=== PATIENT | female | born 1945 | race African-American/Black ===

== ENCOUNTER → 2016-07-15 | Outpatient (CLI) | payer MEDICARE | LOC: RAD 19:30 | PROVIDERS: ATTEND Physician Assistant | DX: M54.5 Low back pain (principal) | CPT/HCPCS: 72148 ==

== ENCOUNTER 2016-10-13 11:50 | Emergency (ER) | payer MEDICARE, OTHER ==
[2016-10-13] MEDS ORDERED: PREDNISONE 20 MG TABLET PO ONE (12:10)
[2016-10-13] MEDS ORDERED: IPRATROPIUM/ALBUTEROL 0.5-2.5 MG/3 ML AMPUL NEB ONE ×2 (12:10→14:06)
--- NOTE | 2016-10-13 12:12 | ER Document Report ---
ED Medical Screen (RME) - General Chief Complaint: Asthma Exacerbation Stated Complaint: DIFFICULTY BREATHING Time Seen by Provider: 10/13/16 12:05 Mode of Arrival: Ambulatory Information source: Patient Notes: This is a 71-year-old female with multiple medical problems to include CHF and coronary artery disease and [place] last year who presents with increasing shortness of breath for the past few days. States that her nebulizer "broke" 3 days ago that she has been using her inhaler. She did have an episode of chest tightness on Thursday. No current chest pain. She denies any fevers or chills. She has been coughing up some white sputum. She does have prior history of hospital admission secondary to asthma but no prior history of intubation. I have greeted and performed a rapid initial assessment of this patient. A comprehensive ED assessment and evaluation of the patient, analysis of test results and completion of the medical decision making process will be conducted by additional ED providers. TRAVEL OUTSIDE OF THE [place] IN LAST 30 DAYS: No - Related Data Allergies/Adverse Reactions: Penicillins Allergy (Mild, Verified 05/14/16 20:05) Hives rofecoxib [From Vioxx] Allergy (Mild, Verified 05/14/16 20:05) Hives Sulfa (Sulfonamide Antibiotics) Allergy (Mild, Verified 05/14/16 20:05) Hives IV Dye Allergy (Uncoded 05/14/16 20:05) Past Medical History - Social History Chew tobacco use (# tins/day): No Frequency of alcohol use: None Drug Abuse: None - Past Medical History Cardiac Medical History: Reports: Hx Congestive Heart Failure, Hx Coronary Artery Disease, Hx Heart Attack - 2016, Hx Hypercholesterolemia, Hx Hypertension Pulmonary Medical History: Reports: Hx Asthma, Hx Bronchitis, Hx COPD, Hx Pneumonia - > than 5 yrs ago Neurological Medical History: Reports: Hx Cerebrovascular Accident - Multiple ( last one at least 10 yrs ago). Denies: Hx Seizures Renal/ Medical History: Reports: Hx Kidney Stones. Denies: Hx Peritoneal Dialysis GI Medical History: Reports: Hx Gastritis, Hx Gastroesophageal Reflux Disease, Hx Ulcer - gastric non bleeding Musculoskeltal Medical History: Reports Hx Arthritis, Reports Hx Musculoskeletal Deformity Psychiatric Medical History: Reports: Hx Anxiety, Hx Depression Past Surgical History: Reports: Hx Adenoidectomy, Hx Cardiac Catheterization - no stents, Hx Gynecologic Surgery - uterine fibroid removal, Hx Tonsillectomy, Hx Tubal Ligation - Immunizations Hx Diphtheria, Pertussis, Tetanus Vaccination: No Physical Exam - Vital signs Vitals: Temp Pulse Resp BP Pulse Ox 97.7 F 63 24 H 133/66 H 98 10/13/16 11:51 10/13/16 11:51 10/13/16 11:51 10/13/16 11:51 10/13/16 11:51 - General General appearance: Appears well, Alert In distress: None - Respiratory Respiratory status: No respiratory distress Chest status: Nontender Breath sounds: No: Rhonchi, Wheezing Notes: decreased bibasilar breath sounds - Cardiovascular Rhythm: Regular Heart sounds: Normal auscultation, S1 appreciated, S2 appreciated Course - Vital Signs Vital signs: Temp Pulse Resp BP Pulse Ox 97.7 F 63 24 H 133/66 H 98 10/13/16 11:51 10/13/16 11:51 10/13/16 11:51 10/13/16 11:51 10/13/16 11:51
--- NOTE | 2016-10-13 13:29 | RADIOLOGY REPORT (SQ) ---
EXAM DESCRIPTION: CHEST SINGLE VIEW COMPLETED DATE/TIME: 10/13/2016 1:20 pm REASON FOR STUDY: asthma, SOB, chest tightness COMPARISON: 04/20/2016 EXAM PARAMETERS: NUMBER OF VIEWS: One view. TECHNIQUE: Single frontal radiographic view of the chest acquired. RADIATION DOSE: NA LIMITATIONS: None. FINDINGS: LUNGS AND PLEURA: No opacities, masses or pneumothorax. No pleural effusion. MEDIASTINUM AND HILAR STRUCTURES: Stable in size and contour. HEART AND VASCULAR STRUCTURES: Heart stable in size. Normal vasculature. BONES: No acute findings. HARDWARE: None in the chest. OTHER: No other significant finding. IMPRESSION: NO ACUTE RADIOGRAPHIC FINDING IN THE CHEST. TECHNICAL DOCUMENTATION: JOB ID: [id number]
[2016-10-13 13:44] LABS: ABSOLUTE EOSINOPHILS # (AUTO) 0.1 10^3/uL (0.0-0.6); ABSOLUTE LYMPHOCYTES (AUTO) 2.5 10^3/uL (0.5-4.7); ABSOLUTE MONOCYTES (AUTO) 0.5 10^3/uL (0.1-1.4); ABSOLUTE NEUT (AUTO) 4.9 10^3/uL (1.7-8.2); BASOPHILS % (AUTO) 0.6 % (0-2); EOSINOPHILS % (AUTO) 1.5 % (0-6); HEMOGLOBIN 13.3 g/dL (12.0-15.5); HGB HCT DIFFERENCE -0.1; MEAN CORPUSCULAR HEMOGLOBIN 32.4 pg (27.0-33.4); MEAN CORPUSCULAR HGB CONC 33.2 g/dL (32.0-36.0); MEAN CORPUSCULAR VOLUME 98 fl (80-97); MONOCYTES % (AUTO) 6.1 % (3-13); RED BLOOD COUNT 4.09 10^6/uL (3.72-5.28); RED CELL DISTRIBUTION WIDTH 13.6 % (11.5-14.0); SEGMENTED NEUTROPHILS % (AUTO) 60.8 % (42-78)
[2016-10-13 13:56] LABS: ALANINE AMINOTRANSFERASE 17 U/L (9-52); ALBUMIN 3.4 g/dL (3.5-5.0); ALKALINE PHOSPHATASE 204 U/L (38-126); ANION GAP 11 (5-19); ASPARTATE AMINO TRANSFERASE 17 U/L (14-36); BILIRUBIN,DIRECT 0.2 mg/dL (0.0-0.4); BILIRUBIN,TOTAL 0.6 mg/dL (0.2-1.3); BLOOD UREA NITROGEN 49 mg/dL (7-20); CALCIUM 9.5 mg/dL (8.4-10.2); CARBON DIOXIDE 21 mmol/L (22-30); CHLORIDE 109 mmol/L (98-107); CREATINE KINASE 53 U/L (30-135); CREATININE RESULT 1.75 mg/dL (0.52-1.25); GLUCOSE 132 mg/dL (75-110); POTASSIUM 3.8 mmol/L (3.6-5.0); TOTAL PROTEIN 5.8 g/dL (6.3-8.2)
[2016-10-13 14:08] LABS: CREATINE KINASE MB 1.22 ng/mL (<4.55); TROPONIN I < 0.012 ng/mL
--- NOTE | 2016-10-13 14:32 | ER Document Report ---
ED General - General Chief Complaint: Asthma Exacerbation Stated Complaint: DIFFICULTY BREATHING Time Seen by Provider: 10/13/16 12:05 Mode of Arrival: Ambulatory Information source: Patient Notes: 71 yr old female hx of asthma presents iwth complaitns of wheezing sob. pt denies any fevers or chills, nausea or vomiting. pt notes it worsens with ambulation. pt noted intermittent yellow sputum pt admits to left hip pain of 1 year duration pt is on 10 mg of prednisone daily. TRAVEL OUTSIDE OF THE [place] IN LAST 30 DAYS: No - HPI Onset: Last week Onset/Duration: Persistent Quality of pain: Achy Severity: Mild Pain Level: 1 Associated symptoms: Productive cough, Shortness of breath Exacerbated by: Movement, Walking Relieved by: Denies Similar symptoms previously: Yes Recently seen / treated by doctor: Yes - Related Data Allergies/Adverse Reactions: Penicillins Allergy (Mild, Verified 05/14/16 20:05) Hives rofecoxib [From Vioxx] Allergy (Mild, Verified 05/14/16 20:05) Hives Sulfa (Sulfonamide Antibiotics) Allergy (Mild, Verified 05/14/16 20:05) Hives IV Dye Allergy (Uncoded 05/14/16 20:05) Past Medical History - General Information source: Patient - Social History Smoking Status: Never Smoker Cigarette use (# per day): No Chew tobacco use (# tins/day): No Smoking Education Provided: No Frequency of alcohol use: None Drug Abuse: None Family History: CAD, DM, Hypertension, Malignancy - Past Medical History Cardiac Medical History: Reports: Hx Congestive Heart Failure, Hx Coronary Artery Disease, Hx Heart Attack - 2016, Hx Hypercholesterolemia, Hx Hypertension Pulmonary Medical History: Reports: Hx Asthma, Hx Bronchitis, Hx COPD, Hx Pneumonia - > than 5 yrs ago Neurological Medical History: Reports: Hx Cerebrovascular Accident - Multiple ( last one at least 10 yrs ago). Denies: Hx Seizures Renal/ Medical History: Reports: Hx Kidney Stones. Denies: Hx Peritoneal Dialysis GI Medical History: Reports: Hx Gastritis, Hx Gastroesophageal Reflux Disease, Hx Ulcer - gastric non bleeding Musculoskeltal Medical History: Reports Hx Arthritis, Reports Hx Musculoskeletal Deformity Psychiatric Medical History: Reports: Hx Anxiety, Hx Depression Past Surgical History: Reports: Hx Adenoidectomy, Hx Cardiac Catheterization - no stents, Hx Gynecologic Surgery - uterine fibroid removal, Hx Tonsillectomy, Hx Tubal Ligation - Immunizations Hx Diphtheria, Pertussis, Tetanus Vaccination: No Hx Pneumococcal Vaccination: 02/16/12 Review of Systems - Review of Systems Notes: PHYSICAL EXAMINATION: GENERAL: Well-appearing, well-nourished and in no acute distress. HEAD: Atraumatic, normocephalic. EYES: Pupils equal round and reactive to light, extraocular movements intact, conjunctiva are normal. ENT: Nares patent, oropharynx clear without exudates. Moist mucous membranes. NECK: Normal range of motion, supple without lymphadenopathy LUNGS: Breath sounds clear to auscultation bilaterally and equal. No wheezes rales or rhonchi. HEART: Regular rate and rhythm without murmurs ABDOMEN: Soft, nontender, nondistended abdomen. No guarding, no rebound. No masses appreciated. Female : deferred Musculoskeletal: Normal range of motion, no pitting or edema. No cyanosis. NEUROLOGICAL: Cranial nerves grossly intact. Normal speech, normal gait. Normal sensory, motor exams PSYCH: Normal mood, normal affect. SKIN: Warm, Dry, normal turgor, no rashes or lesions noted. Physical Exam - Vital signs Vitals: Temp Pulse Resp BP Pulse Ox 97.7 F 63 24 H 133/66 H 98 10/13/16 11:51 10/13/16 11:51 10/13/16 11:51 10/13/16 11:51 10/13/16 11:51 Course - Re-evaluation Re-evalutation: 10/13/16 14:31 Patient is having no respiratory difficulty at this time, notes she feels much better after 2 breathing treatments. I will increase her baseline steroids from 10-60 for next 5 days Otherwise looks well will be discharged home with very close follow-up After performing a Medical Screening Examination, I estimate there is LOW risk for ACUTE CORONARY SYNDROME, RESPIRATORY FAILURE, SEPSIS OR MENINGITIS, thus I consider the discharge disposition reasonable. I have reevaluated this patient multiple times and no significant life threatening changes are noted. The patient and I have discussed the diagnosis and risks, and we agree with discharging home with close follow-up. We also discussed returning to the Emergency Department immediately if new or worsening symptoms occur. We have discussed the symptoms which are most concerning (e.g., changing or worsening pain, trouble swallowing or breathing, neck stiffness, fever) that necessitate immediate return. 10/13/16 15:11 - Vital Signs Vital signs: Temp Pulse Resp BP Pulse Ox 97.6 F 70 20 127/91 H 97 10/13/16 14:43 10/13/16 14:43 10/13/16 14:43 10/13/16 14:43 10/13/16 14:43 - Laboratory Result Diagrams: 10/13/16 13:30 10/13/16 13:30 Laboratory results interpreted by me: 10/13/16 10/13/16 13:30 13:30 MCV 98 H Chloride 109 H Carbon Dioxide 21 L BUN 49 H Creatinine 1.75 H Est GFR ( Amer) 35 L Est GFR (Non-Af Amer) 29 L Glucose 132 H Alkaline Phosphatase 204 H Total Protein 5.8 L Albumin 3.4 L - Diagnostic Test Radiology reviewed: Image reviewed, Reports reviewed Discharge - Discharge Clinical Impression: Asthma exacerbation, Pain of left hip CKD (chronic kidney disease) Qualifiers: Chronic kidney disease stage: stage 2 (mild) Qualified Code(s): N18.2 - Chronic kidney disease, stage 2 (mild) Condition: Stable Disposition: HOME, SELF-CARE Instructions: Asthma (REPLACED BY [facility]) Additional Instructions: Follow up with your physician tomorrow for further care or return to the ED IMMEDIATELY if symptoms worsen or new concerns occur. If you cannot afford to follow up with your primary care physician a list of low cost clinics have been provided at the end of your discharge papers as well. Prescriptions: Prednisone [Deltasone 20 mg Tablet] 3 tab PO DAILY 5 Days
[2016-10-13 14:44] VITALS: BP 127/91
--- NOTE | 2016-10-13 21:13 | EKG REPORT ---
SEVERITY:- ABNORMAL ECG - SINUS RHYTHM PROBABLE LEFT ATRIAL ABNORMALITY LEFT VENTRICULAR HYPERTROPHY ANTERIOR Q WAVES, POSSIBLY DUE TO LVH : Confirmed by: Mariann Reyes 13-Oct-2016 21:11:29
== END 2016-10-13 14:44 | disposition home or self-care (01) ==
LOC: ER 11:50
DX: J45.901 Unspecified asthma with (acute) exacerbation (principal); M25.552 Pain in left hip; G89.29 Other chronic pain; N18.2 Chronic kidney disease, stage 2 (mild); R06.02 Shortness of breath; Z79.899 Other long term (current) drug therapy
CPT/HCPCS: 93005; 94640 ×2; 99285; 36415; 87040; 82553; 82550; 85025; 80053; 84484; 83880; 71010; 93010; A9270 ×2; J7512; J7620

== ENCOUNTER 2016-11-26 12:59 | Inpatient (IN) | payer MEDICARE, OTHER ==
[2016-11-26] MEDS ORDERED: MORPHINE SULFATE 10 MG/ML INJ IV ONE ×2 (14:09→15:27)
[2016-11-26] MEDS ORDERED: ONDANSETRON HCL INJ/PF 4 MG/2 ML SDV IV ONE (14:09)
--- NOTE | 2016-11-26 14:13 | ER Document Report ---
ED Medical Screen (RME) - General Chief Complaint: Abdominal Pain Stated Complaint: ABDOMINAL PAIN Time Seen by Provider: 11/26/16 14:04 Mode of Arrival: Ambulatory Information source: Patient, [facility] Records TRAVEL OUTSIDE OF THE [place] IN LAST 30 DAYS: No - HPI Onset: Other - 2 weeks Onset/Duration: Gradual, Constant Quality of pain: Dull Associated Symptoms: Nausea. denies: Vomiting Exacerbated by: Denies Relieved by: Denies Notes: 11/26/16 14:10 Patient is a 71-year-old female who presents with a two-week history of ventral wall hernia. Patient states she did not have it prior to 2 weeks ago. Patient complains of increasing abdominal pain. Nausea no vomiting. She is able to tolerate p.o. intake. No fevers or chills. Patient has not been seen by primary care or general surgery for this complaint. - Related Data Allergies/Adverse Reactions: Penicillins Allergy (Mild, Verified 11/26/16 13:12) Hives rofecoxib [From Vioxx] Allergy (Mild, Verified 11/26/16 13:12) Hives Sulfa (Sulfonamide Antibiotics) Allergy (Mild, Verified 11/26/16 13:12) Hives IV Dye Allergy (Uncoded 11/26/16 13:12) Past Medical History - General Information source: Patient, [facility] Records - Social History Chew tobacco use (# tins/day): No Frequency of alcohol use: None Drug Abuse: None - Past Medical History Cardiac Medical History: Reports: Hx Congestive Heart Failure, Hx Coronary Artery Disease, Hx Heart Attack - 2016, Hx Hypercholesterolemia, Hx Hypertension Pulmonary Medical History: Reports: Hx Asthma, Hx Bronchitis, Hx COPD, Hx Pneumonia - > than 5 yrs ago Neurological Medical History: Reports: Hx Cerebrovascular Accident - Multiple ( last one at least 10 yrs ago). Denies: Hx Seizures Renal/ Medical History: Reports: Hx Kidney Stones. Denies: Hx Peritoneal Dialysis GI Medical History: Reports: Hx Gastritis, Hx Gastroesophageal Reflux Disease, Hx Ulcer - gastric non bleeding Musculoskeltal Medical History: Reports Hx Arthritis, Reports Hx Musculoskeletal Deformity Psychiatric Medical History: Reports: Hx Anxiety, Hx Depression Past Surgical History: Reports: Hx Adenoidectomy, Hx Cardiac Catheterization - no stents, Hx Gynecologic Surgery - uterine fibroid removal, Hx Tonsillectomy, Hx Tubal Ligation - Immunizations Hx Diphtheria, Pertussis, Tetanus Vaccination: No Review of Systems - Review of Systems Gastrointestinal: Abdominal pain, Nausea -: Yes All other systems reviewed and negative Physical Exam - Vital signs Vitals: Temp Pulse Resp BP Pulse Ox 99.6 F 85 20 103/60 98 11/26/16 13:14 11/26/16 13:14 11/26/16 13:14 11/26/16 13:14 11/26/16 13:14 Interpretation: Normal - General General appearance: Appears well, Alert - HEENT Head: Normocephalic, Atraumatic Eyes: Normal Pupils: PERRL - Respiratory Respiratory status: No respiratory distress Chest status: Nontender Breath sounds: Normal Chest palpation: Normal - Cardiovascular Rhythm: Regular Heart sounds: Normal auscultation Murmur: No - Abdominal Inspection: Other - Small midline ventral wall hernia above the umbilicus. Significant skin scarring secondary to flores many years ago. Bowel sounds: Normal Tenderness: Tender - Over ventral wall hernia site - Extremities General upper extremity: Normal inspection, Nontender, Normal color, Normal ROM , Normal temperature General lower extremity: Normal inspection, Nontender, Normal color, Normal ROM , Normal temperature, Normal weight bearing. No: Lorenzo's sign - Neurological Neuro grossly intact: Yes Cognition: Normal Orientation: AAOx4 [place] Coma Scale Eye Opening: Spontaneous Alejandro Coma Scale Verbal: Oriented Alejandro Coma Scale Motor: Obeys Commands Alejandro Coma Scale Total: 15 Speech: Normal Motor strength normal: LUE, RUE, LLE, RLE Sensory: Normal Course - Re-evaluation Re-evalutation: 11/26/16 14:13 Patient will require labs and CT. Patient will be taken to the back treatment area for further management and disposition. - Vital Signs Vital signs: Temp Pulse Resp BP Pulse Ox 99.6 F 85 20 103/60 98 11/26/16 13:14 11/26/16 13:14 11/26/16 13:14 11/26/16 13:14 11/26/16 13:14
[2016-11-26 14:58] LABS: HEMATOCRIT 38.8 % (36.0-47.0); HEMOGLOBIN 12.8 g/dL (12.0-15.5); HGB HCT DIFFERENCE -0.4; MEAN CORPUSCULAR HEMOGLOBIN 32.6 pg (27.0-33.4); MEAN CORPUSCULAR VOLUME 99 fl (80-97); RED BLOOD COUNT 3.93 10^6/uL (3.72-5.28); RED CELL DISTRIBUTION WIDTH 14.1 % (11.5-14.0); WHITE BLOOD COUNT 8.6 10^3/uL (4.0-10.5)
[2016-11-26 15:24] LABS: BASOPHILS % (MANUAL) 0 % (0-2); EOSINOPHILS % (MANUAL) 0 % (0-6); LYMPHOCYTES % (MANUAL) 14 % (13-45); PLATELET CLUMPS PRESENT; TOTAL CELLS COUNTED 100; TOXIC GRANULATION 1+; TOXIC VACUOLATION PRESENT
[2016-11-26 15:26] LABS: PARTIAL THROMBOPLASTIN TIME 21.9 SEC (23.5-35.8); PROTHROMBIN TIME 12.4 SEC (11.4-15.4)
[2016-11-26] MEDS ORDERED: NORMAL SALINE 1000 ML 1,000 ML IV ONE (15:27)
--- NOTE | 2016-11-26 15:28 | ER Document Report ---
ED GI/ - General Mode of Arrival: Ambulatory Information source: Patient TRAVEL OUTSIDE OF THE [place] IN LAST 30 DAYS: No <MARYLOU MORAN - Last Filed: 11/26/16 23:25> <EMIR PARKINSON - Last Filed: 11/27/16 00:46> - General Chief Complaint: Abdominal Pain Stated Complaint: ABDOMINAL PAIN Time Seen by Provider: 11/26/16 14:04 Notes: Patient is a 71-year-old female who presents to the emergency department today with complaints of abdominal pain that radiates to her back. Patient states she has had a hernia in the past and this feels similar to previous hernia. Patient states she had her hernia repaired with mesh. Patient complains of nausea but denies any vomiting. Patient has abdominal distension. (MARYLOU MORAN ) - Related Data Allergies/Adverse Reactions: Penicillins Allergy (Mild, Verified 11/26/16 21:12) Hives rofecoxib [From Vioxx] Allergy (Mild, Verified 11/26/16 13:12) Hives Sulfa (Sulfonamide Antibiotics) Allergy (Mild, Verified 11/26/16 13:12) Hives Home Medications: Current Home Medications Albuterol Sulfate [Proair HFA] 2 puff IH Q4HP PRN 11/26/16 [History] Amlodipine Besylate [Norvasc 5 mg Tablet] 5 mg PO DAILY 11/26/16 [History] Aspirin [Aspirin EC] 81 mg PO DAILY 11/26/16 [History] Atorvastatin Calcium [Lipitor 40 mg Tablet] 40 mg PO QHS 11/26/16 [History] Baclofen [Baclofen 10 mg Tablet] 10 mg PO DAILY 11/26/16 [History] Budesonide/Formoterol Fumarate [Symbicort Hfa 160-4.5 Mcg Inhaler 6 gm] 2 puff IH Q12 11/26/16 [History] Escitalopram Oxalate [Lexapro 10 mg Tablet] 10 mg PO DAILY 11/26/16 [History] Esomeprazole Magnesium [Nexium] 40 mg PO QAM 11/26/16 [History] Gabapentin [Neurontin 300 mg Capsule] 300 mg PO BID 11/26/16 [History] Metoprolol Tartrate [Lopressor 50 mg Tablet] 50 mg PO Q12 11/26/16 [History] Montelukast Sodium [Singulair 10 mg Tablet] 10 mg PO DAILY 11/26/16 [History] Multivitamin [Tab-A-Gustavo] 1 each PO DAILY 11/26/16 [History] Olmesartan/Hydrochlorothiazide [Benicar Hct 40-12.5 Mg Tablet] 1 each PO DAILY 11/26/16 [History] Prednisone [Deltasone 10 mg Tablet] 10 mg PO BID 11/26/16 [History] Sertraline HCl [Zoloft] 100 mg PO DAILY 11/26/16 [History] Tramadol HCl [Ultram 50 mg Tablet] 50 mg PO BIDP PRN 11/26/16 [History] Triamterene/Hydrochlorothiazid [Triamterene-Hctz 37.5-25 mg Tb] 1 each PO DAILY 11/26/16 [History] Past Medical History - General Information source: Patient, [facility] Records - Social History Smoking Status: Never Smoker Cigarette use (# per day): No Chew tobacco use (# tins/day): No Frequency of alcohol use: None Drug Abuse: None Lives with: Family Family History: Reviewed & Not Pertinent, CAD, DM, Hypertension, Malignancy Patient has suicidal ideation: No Patient has homicidal ideation: No - Past Medical History Cardiac Medical History: Reports: Hx Congestive Heart Failure, Hx Coronary Artery Disease, Hx Heart Attack - 2016, Hx Hypercholesterolemia, Hx Hypertension Pulmonary Medical History: Reports: Hx Asthma, Hx Bronchitis, Hx COPD, Hx Pneumonia - > than 5 yrs ago Neurological Medical History: Reports: Hx Cerebrovascular Accident - Multiple ( last one at least 10 yrs ago) Renal/ Medical History: Reports: Hx Kidney Stones GI Medical History: Reports: Hx Gastritis, Hx Gastroesophageal Reflux Disease, Hx Ulcer - gastric non bleeding Musculoskeltal Medical History: Reports Hx Arthritis, Reports Hx Musculoskeletal Deformity Psychiatric Medical History: Reports: Hx Anxiety, Hx Depression Past Surgical History: Reports: Hx Adenoidectomy, Hx Cardiac Catheterization - no stents, Hx Gynecologic Surgery - uterine fibroid removal, Hx Tonsillectomy, Hx Tubal Ligation - Immunizations Hx Diphtheria, Pertussis, Tetanus Vaccination: No Hx Pneumococcal Vaccination: 02/16/12 <MARYLOU MORAN - Last Filed: 11/26/16 23:25> Review of Systems - Review of Systems Constitutional: No symptoms reported EENT: No symptoms reported Cardiovascular: No symptoms reported Respiratory: No symptoms reported Gastrointestinal: See HPI, Abdominal pain, Nausea. denies: Vomiting Genitourinary: No symptoms reported Female Genitourinary: No symptoms reported Musculoskeletal: See HPI, Back pain Skin: No symptoms reported Hematologic/Lymphatic: No symptoms reported Neurological/Psychological: No symptoms reported -: Yes All other systems reviewed and negative <MARYLOU MORAN - Last Filed: 11/26/16 23:25> Physical Exam <MARYLOU MORAN - Last Filed: 11/26/16 23:25> <EMIR PARKINSON - Last Filed: 11/27/16 00:46> - Vital signs Vitals: Temp Pulse Resp BP Pulse Ox 99.6 F 85 20 103/60 98 11/26/16 13:14 11/26/16 13:14 11/26/16 13:14 11/26/16 13:14 11/26/16 13:14 - Notes Notes: Physical Exam: General: Alert, appears uncomfortable. HEENT: Normocephalic. Atraumatic. PERRL. Extraocular movements intact. Oropharynx clear. Dry mucous membranes. Neck: Supple. Non-tender. Respiratory: No respiratory distress. Clear and equal breath sounds bilaterally. Cardiovascular: Regular rate and rhythm. Abdominal: Abdominal distension, diffuse abdominal tenderness with palpation, no palpable hernias. Healed flores on upper abdomen consistent with history. Back: Non-tender. No deformity or step off. Extremities: Moves all four extremities. Upper extremities: Normal inspection. Normal ROM. Lower extremities: Normal inspection. No edema. Normal ROM. Neurological: Normal cognition. AAOx4. Normal speech. Psychological: Normal affect. Normal Mood. Skin: see abdomen exam (MARYLOU MORAN) Course - Laboratory Result Diagrams: 11/26/16 14:35 11/26/16 15:34 <MARYLOU MORAN - Last Filed: 11/26/16 23:25> - Laboratory Result Diagrams: 11/26/16 14:35 11/26/16 15:34 <EMIR PARKINSON - Last Filed: 11/27/16 00:46> - Re-evaluation Re-evalutation: 11/26/16 18:30 Patient is a 71-year-old female who comes in complaining of abdominal pain. No acute findings on CT. Blood work is showing acute on chronic renal failure and an elevated lactic acid. Patient has what appears to be urinary tract infection and also pneumonia. Patient was complaining of Hung's. Temperature was checked and fever is 1016. Blood and urine culture sent. Patient will be admitted to the hospitalist service. Antibiotics initiated in the emergency department to cover urine and pneumonia. Patient agrees with this plan. Stable time of admission. (EMIR PARKINSON) - Vital Signs Vital signs: Temp Pulse Resp BP Pulse Ox 98.2 F 73 18 101/48 L 98 11/26/16 23:46 11/26/16 23:46 11/26/16 23:46 11/26/16 23:46 11/26/16 23:46 - Laboratory Laboratory results interpreted by me: 11/26/16 11/26/16 11/26/16 14:35 14:35 14:35 MCV 99 H RDW 14.1 H Plt Count 149 L Metamyelocytes % 1 H APTT 21.9 L Chloride BUN Creatinine Est GFR ( Amer) Est GFR (Non-Af Amer) Glucose Lactic Acid 3.2 H Magnesium AST ALT Alkaline Phosphatase Total Protein Albumin Ur Leukocyte Esterase 11/26/16 11/26/16 11/26/16 15:34 15:34 17:30 MCV RDW Plt Count Metamyelocytes % APTT Chloride 108 H BUN 44 H Creatinine 2.60 H Est GFR ( Amer) 22 L Est GFR (Non-Af Amer) 18 L Glucose 163 H Lactic Acid Magnesium 1.5 L AST 160 H ALT 78 H Alkaline Phosphatase 204 H Total Protein 5.7 L Albumin 3.2 L Ur Leukocyte Esterase SMALL H Critical Care Note - Critical Care Note Total time excluding time spent on procedures (mins): 35 - Dilatation and management of fever, hypotension, initiation of antibiotics, coordination of admission, counseling patient and family. <EMIR PARKINSON - Last Filed: 11/27/16 00:46> Discharge <MARYLOU MORAN - Last Filed: 11/26/16 23:25> - Discharge Admitting Provider: Hospitalist - [place] [facility] Admitted: [facility] <EMIR PARKINSON - Last Filed: 11/27/16 00:46> - Discharge Clinical Impression: SIRS (systemic inflammatory response syndrome), Acute on chronic renal insufficiency Pneumonia Qualifiers: Pneumonia type: due to unspecified organism Laterality: left Lung location: lower lobe of lung Qualified Code(s): J18.1 - Lobar pneumonia, unspecified organism UTI (urinary tract infection) Qualifiers: Urinary tract infection type: site unspecified Hematuria presence: without hematuria Qualified Code(s): N39.0 - Urinary tract infection, site not specified Condition: Stable Disposition: ADMITTED INPATIENT Scribe Attestation: 11/27/16 00:45 I personally performed the services described in the documentation, reviewed and edited the documentation which was dictated to the scribe in my presence, and it accurately records my words and actions. (EMIR PARKINSON) Scribe Documentation - Scribe Written by Scribe:: Hermelindo Suarez, 11/26/2016 1703 acting as scribe for :: Inge <MARYLOU MORAN - Last Filed: 11/26/16 23:25>
[2016-11-26 16:06] LABS: ALANINE AMINOTRANSFERASE 78 U/L (9-52); ALBUMIN 3.2 g/dL (3.5-5.0); ALKALINE PHOSPHATASE 204 U/L (38-126); ANION GAP 10 (5-19); ASPARTATE AMINO TRANSFERASE 160 U/L (14-36); BILIRUBIN,DIRECT 0.4 mg/dL (0.0-0.4); BILIRUBIN,TOTAL 1.2 mg/dL (0.2-1.3); BLOOD UREA NITROGEN 44 mg/dL (7-20); CALCIUM 9.4 mg/dL (8.4-10.2); CARBON DIOXIDE 22 mmol/L (22-30); CHLORIDE 108 mmol/L (98-107); GLUCOSE 163 mg/dL (75-110); POTASSIUM 3.6 mmol/L (3.6-5.0); TOTAL PROTEIN 5.7 g/dL (6.3-8.2)
--- NOTE | 2016-11-26 16:15 | RADIOLOGY REPORT (SQ) ---
EXAM DESCRIPTION: CT ABD/PELVIS NO ORAL OR IV COMPLETED DATE/TIME: 11/26/2016 3:03 pm REASON FOR STUDY: abd wall hernia COMPARISON: CT angio chest 04/20/2016 CT abdomen pelvis without contrast 10/02/2013 TECHNIQUE: CT scan of the abdomen and pelvis performed without intravenous or oral contrast. Images reviewed with lung, soft tissue, and bone windows. Reconstructed coronal and sagittal MPR images revi ewed. All images stored on PACS. All CT scanners at this facility use dose modulation, iterative reconstruction, and/or weight based d osing when appropriate to reduce radiation dose to as low as reasonably achievable (ALARA). [facility]: Dose Right [facility]: CareDose [facility]: Dose Right [facility]: Teradose 4D [facility]: Pluralsight RADIATION DOSE: 7.8mGy. LIMITATIONS: None. FINDINGS: LOWER CHEST: No significant findings. No nodules or infiltrates. NON-CONTRASTED LIVER, SPLEEN, ADRENALS: Evaluation limited by lack of IV contrast. No identified sign ificant masses. PANCREAS: Multiple pancreatic cysts are present. No peripancreatic inflammation. GALLBLADDER: No identified stones by CT criteria. No inflammatory changes to suggest cholecystitis. RIGHT KIDNEY AND URETER: No suspicious masses. Multiple right renal cortical cysts. Assessment limi bindu by lack of IV contrast. No significant calcifications. No hydronephrosis or hydroureter. LEFT KIDNEY AND URETER: No suspicious masses. Multiple left renal cortical cysts. Assessment limite d by lack of IV contrast. No significant calcifications. No hydronephrosis or hydroureter. AORTA AND RETROPERITONEUM: No aneurysm. No retroperitoneal masses or adenopathy. BOWEL AND PERITONEAL CAVITY: No obvious masses or inflammatory changes. No free fluid. Scattered col onic diverticuli. APPENDIX: Normal. PELVIS, BLADDER, AND ABDOMINAL WALL:No abnormal masses. No free fluid. Normal size female pelvic org ans. Intact prior ventral hernia repair. In the left bladder trigone, along the mucosa near the left ureteral orifice into the bladder, a 6 mm calculus is present. This is similar compared to 10/02/2013. This could be a mucosal calcification, or stone within a ureterocele. There is no left hydronephrosis or hydroureter. BONES: No significant findings. OTHER: No other significant finding. IMPRESSION: No acute findings Multiple bilateral renal and pancreatic cysts, intact ventral hernia repair, colonic diverticulosis w ithout CT signs of acute diverticulitis 6 mm calcification along the left bladder trigone, bladder stone versus stone in a ureterocele versus bladder mucosal calcification. No left hydronephrosis/hydroureter. TECHNICAL DOCUMENTATION: JOB ID: [id number] Quality ID # [id number]: Final reports with documentation of one or more dose reduction techniques (e.g., Au tomated exposure control, adjustment of the mA and/or kV according to patient size, use of iterative reconstruction technique) 2010 [employer]- All Rights Reserved
[2016-11-26] MEDS ORDERED: ACETAMINOPHEN 325 MG TABLET PO ONE (18:24)
[2016-11-26 19:03] LABS: APPEARANCE,URINE SLIGHTLY-CLOUDY; BILIRUBIN,URINE NEGATIVE (NEGATIVE); GLUCOSE, URINE NEGATIVE (NEGATIVE); KETONES,URINE NEGATIVE (NEGATIVE); LEUKOCYTE ESTERASE,URINE SMALL (NEGATIVE); NITRITE,URINE NEGATIVE (NEGATIVE); PROTEIN,URINE NEGATIVE (NEGATIVE); UROBILINOGEN,URINE NEGATIVE mg/dL (<2.0)
--- NOTE | 2016-11-26 19:08 | RADIOLOGY REPORT (SQ) ---
EXAM DESCRIPTION: CHEST SINGLE VIEW COMPLETED DATE/TIME: 11/26/2016 6:59 pm REASON FOR STUDY: fever COMPARISON: 10/13/2016 EXAM PARAMETERS: NUMBER OF VIEWS: One view. TECHNIQUE: Single frontal radiographic view of the chest acquired. RADIATION DOSE: NA LIMITATIONS: None. FINDINGS: LUNGS AND PLEURA: Bibasilar opacities. No effusions. MEDIASTINUM AND HILAR STRUCTURES: No masses. Contour normal. HEART AND VASCULAR STRUCTURES: Perihilar vascular congestion with mild cardiac enlargement. BONES: No acute findings. HARDWARE: None in the chest. OTHER: No other significant finding. IMPRESSION: Vascular congestion. Suspect superimposed basilar pneumonia. TECHNICAL DOCUMENTATION: JOB ID: [id number]
[2016-11-26] MEDS ORDERED: LEVOFLOXACIN 750 MG/D5W RTU 150 ML IV ONE (19:48)
[2016-11-26] MEDS ORDERED: CEFEPIME 1 GM/D5W RTU 50 ML IV ONE (19:48)
[2016-11-26] MEDS ORDERED: GUAIFENESIN SYRP 200 MG/10 ML UDC PO PRN (21:00)
[2016-11-26] MEDS ORDERED: IPRATROPIUM/ALBUTEROL 0.5-2.5 MG/3 ML AMPUL NEB PRN (21:00)
[2016-11-26] MEDS ORDERED: CEFEPIME HCL 1 GM in DEXTROSE 5%-WATER 50 ML IV ONE (21:00)
[2016-11-26] MEDS ORDERED: PHARMACY COMMUNICATION ORDER MC NR (21:00)
[2016-11-26 21:05] LABS: ADD ON TESTING BLD IN LAB ACKNOWLEDGE
[2016-11-26 21:21] LABS: MAGNESIUM 1.5 mg/dL (1.6-2.3)
--- NOTE | 2016-11-26 21:22 | PDOC H&P ---
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 Patient has been discussed with emergency room physician who evaluated the patient. Cramping pain that radiated to her back. Patient states this was similar pain she had experienced with a hernia that had been repaired with mesh in the past. Nausea but no vomiting. No dysuria. Occasional diarrhea, which is a chronic problem for her, without recent change. No chest pain. As noted above, abdominal pain is now resolved. During her evaluation in the emergency room, patient began having prominent shaking chills, with a fever 101+ . X-rays reveal suspected bibasilar pneumonia. Chronic cough without recent change. No antibiotic or hospitalization within the last 3 months. No use of alcohol tobacco or illicit drugs. Hospitalized on our service basically overnight February 27-2014 with final diagnoses including chest pain and COPD exacerbation. Discharge summary has been reviewed. Was also admitted to our service February [id number] for chest pain. History and physical has been reviewed. Currently resting quietly, pain-free, stating that she feels a bit better. Laboratory results are listed in [employer] and are reviewed. X-ray summary results are listed below, with full report(s) reviewed. . Social history/personal habits: . Daughter lives with her. Retired. Personal habits as noted above. Allergies/adverse reactions are listed in [employer] and are reviewed. Home medications initially autopopulated into [employer] may not accurately reflect patient's true medications, dosages, and/or frequencies. marketing technology coordinator to reconcile medications. Unfortunately, patient not certain of all medications/dosages/frequencies. REVIEW OF SYSTEMS: See history and present illness. 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 ENT: No swallowing problems or complaints. Denies hearing loss. Pulmonary: No current complaints other than her mild chronic cough, without recent change. Cardiovascular: No current complaints, including chest pain. Gastrointestinal: See history and present illness. Skin: Occasional problems with eczema. Hematologic: Easy bruising. Neurologic: No current complaints, including numbness or tingling. Musculoskeletal: Joint pain from rheumatoid arthritis. Psychiatric: Mild anxiety and depression. Denies suicidal or homicidal ideation. Endocrine: No current complaints, including polyuria. Genitourinary: No current complaints, including dysuria. PHYSICAL EXAMINATION: Daughter Mp Singleton, her surrogate healthcare decision maker, is present at her side; patient approves. 4 feet 11 inches tall. 62.8 kg. BMI 28 kg/m. Blood pressure 109/57. Pulse 95 and regular. 95% saturation on 2 L oxygen per nasal cannula. Respirations are 23 and unlabored. Temperature 101.6 earlier; skin feels normothermic at present. Slightly overweight otherwise well-nourished well-developed though somewhat chronically ill-appearing -[place] female who appears perhaps a bit older than her stated age. Pleasant awake alert and cooperative. No obvious distress other than somewhat anxious. Skin is warm and dry. No grossly obvious evidence of rash in areas of skin examined. No subcutaneous nodules palpated. ENT: Hearing grossly normal to normal conversation. Tongue midline on protrusion pink and slightly tacky. Eyes: No scleral icterus. Right pupil 4 mm and reactive to light; left pupil slightly larger, somewhat oblong, with minimal if any reaction to light. Guerra conjunctivae. Neck is supple and nontender to gentle active range of motion and palpation. Midline trachea. No palpable thyroid nodule mass enlargement or tenderness. Lymphatic: No palpable cervical or clavicular nodes. Neck and lymphatic exams limited by patient body habitus. Psychiatric: Reasonable insight into acute and chronic medical issues. Oriented to time location and why here. Lungs: Auscultation reveals clear and equal breath sounds bilaterally. No use of accessory respiratory muscles. Cardiovascular: Heart regular rate and rhythm, without gallop murmur or rub. No carotid or abdominal aortic bruits. No ankle or pedal edema. Palpable dorsalis pedis pulses. Abdomen:soft slightly distended nontender with positive bowel sounds. Unable to adequately evaluate abdomen for masses or organomegaly due to distention. Extremities: Feet are warm and dry. No calf tenderness to compression. No grossly obvious visual evidence of calf swelling. Gentle manipulation of lower extremities fails to reveal any obvious evidence of injury or instability to knees hips or ankles. Neurologic: Moves upper extremities grossly normally. Patellar reflexes absent. Absent Babinski. Light touch is intact at feet. Dorsiflexion and plantarflexion of feet 5 / 5 and symmetric. Past Medical History Cardiac Medical History: Reports: Congestive Heart Failure - Diastolic, Coronary Artery Disease, Myocardial Infarction - 2016, Hyperlipidema, Hypertension Denies: DVT, Pulmonary Embolism Pulmonary Medical History: Reports: Asthma - Steroid dependent, Bronchitis, Chronic Obstructive Pulmonary Disease (COPD), Pneumonia - > than 5 yrs ago, Sleep Apnea - Suspected, with further testing pending. EENT Medical History: Reports: Eyes - Poor vision in right eye; basically blind in left Denies: Ears, Throat Neurological Medical History: Reports: Ischemic CVA - Distant history, without residual after effects. Denies: Hemorrhagic CVA, Seizures Endocrine Medical History: Denies: Diabetes Mellitus Type 1, Diabetes Mellitus Type 2, Hyperthyroidism, Hypothyroidism Renal/ Medical History: Reports: Chronic Kidney Disease, Nephrolithiasis - History of GI Medical History: Reports: Gastroesophageal Reflux Disease, Peptic Ulcer Disease - Distant history Denies: Cirrhosis, Hepatitis Musculoskeltal Medical History: Reports: Arthritis - Rheumatoid, Fibromyalgia Skin Medical History: Reports: Eczema Psychiatric Medical History: Reports: Depression - Denies suicidal or homicidal ideation, General Anxiety Disorder Denies: Alcohol Dependency, Substance Abuse, Tobacco Dependency Hematology: Reports: Other - Easy bruising Denies: Anemia Infectious Medical History: Denies: Hepatitis B, Hepatitis C Past Surgical History Past Surgical History: Reports: Adenoidectomy, Cardiac Catheterization - no stents, Tonsillectomy, Tubal Ligation Social History Information Source: Patient, Emergency Med Personnel, [facility] Records Lives with: Family Smoking Status: Never Smoker Frequency of Alcohol Use: None Hx Recreational Drug Use: No Drugs: None Hx Prescription Drug Abuse: No - Advance Directive Resuscitation Status: Full Code Surrogate healthcare decision maker:: Daughter Mp Singleton Family History Family History: Reviewed & Not Pertinent, CAD, DM, Hypertension, Malignancy Parental Family History Reviewed: No Children Family History Reviewed: Yes - 2 daughters with hypertension. 2 sons also. Sibling(s) Family History Reviewed.: Yes - Sister with end-stage renal disease Medication/Allergy Home Medications: Albuterol Sulfate [Proair HFA] 2 puff IH Q4HP PRN 11/26/16 Aspirin [Aspirin EC] 81 mg PO DAILY 11/26/16 Atorvastatin Calcium [Lipitor 40 mg Tablet] 40 mg PO QHS 11/26/16 Baclofen [Baclofen 10 mg Tablet] 10 mg PO DAILY 11/26/16 Budesonide/Formoterol Fumarate [Symbicort HFA 160-4.5 mcg Inhaler 6 gm] 2 puff IH Q12 11/26/16 Escitalopram Oxalate [Lexapro 10 mg Tablet] 10 mg PO DAILY 11/26/16 Esomeprazole Magnesium [Nexium] 40 mg PO QAM 11/26/16 Gabapentin [Neurontin 300 mg Capsule] 300 mg PO BID 11/26/16 Metoprolol Tartrate [Lopressor 50 mg Tablet] 50 mg PO Q12 11/26/16 Montelukast Sodium [Singulair 10 mg Tablet] 10 mg PO DAILY 11/26/16 Multivitamin [Tab-A-Gustavo] 1 each PO DAILY 11/26/16 Prednisone [Deltasone 10 mg Tablet] 10 mg PO BID 11/26/16 Sertraline HCl [Zoloft] 100 mg PO DAILY 11/26/16 Tramadol HCl [Ultram 50 mg Tablet] 50 mg PO BIDP PRN 11/26/16 Triamterene/Hydrochlorothiazid [Triamterene-Hctz 37.5-25 mg Tb] 1 each PO DAILY 11/26/16 Levofloxacin [Levaquin 750 mg Tablet] 750 mg PO Q48H #6 tab 11/29/16 Allergies/Adverse Reactions: Penicillins Allergy (Mild, Verified 11/26/16 21:12) Hives rofecoxib [From Vioxx] Allergy (Mild, Verified 11/27/16 07:38) Hives Sulfa (Sulfonamide Antibiotics) Allergy (Mild, Verified 11/26/16 13:12) Hives Physical Exam Vital Signs: Temp Pulse Resp BP Pulse Ox 101.6 F H 85 16 104/63 96 11/26/16 18:22 11/26/16 13:14 11/26/16 21:01 11/26/16 20:46 11/26/16 21:01 Results Impressions: Chest X-Ray 11/26/16 00:00 IMPRESSION: Vascular congestion. Suspect superimposed basilar pneumonia. Abdomen/Pelvis CT 11/26/16 14:09 IMPRESSION: No acute findings Multiple bilateral renal and pancreatic cysts, intact ventral hernia repair, colonic diverticulosis without CT signs of acute diverticulitis 6 mm calcification along the left bladder trigone, bladder stone versus stone in a ureterocele versus bladder mucosal calcification. No left hydronephrosis/ hydroureter. Assessment & Plan - Diagnosis (1) Abnormal urinalysis Is this a current diagnosis for this admission?: YesPlan: Urine culture. Respiratory antibiotic should provide adequate coverage if there is infection. (2) Basal pneumonia of both lungs Is this a current diagnosis for this admission?: YesPlan: Patient will be admitted under COPD exacerbation and pneumonia protocol. Incentive spirometry twice a day. As needed duo nebs. Antibiotics will consist of aztreonam and intravenous Zithromax.. I strongly encouraged patient to notify staff should patient feel that breathing is worsening. Patient is a full code. I have strongly encouraged patient not to get out of bed without notifying staff , to avoid a fall with injury. Knee high SCDs for DVT prophylaxis, along with subcutaneous heparin. Impression and plans were discussed with patient and daughter, both of whom concur. Time spent in evaluation and management of patient: 74 minutes. (3) Elevated LFTs Is this a current diagnosis for this admission?: YesPlan: Uncertain etiology, perhaps secondary to infection. Follow-up chemistry. Denies underlying biliary disease. (4) Diastolic CHF Qualifiers: Congestive heart failure chronicity: chronic Qualified Code(s): I50.32 - Chronic diastolic (congestive) heart failure Is this a current diagnosis for this admission?: YesPlan: No evidence of acute exacerbation of same. Resume home medications as appropriate once these have been determined and reviewed. (5) Hyperlipidemia Qualifiers: Hyperlipidemia type: unspecified Qualified Code(s): E78.5 - Hyperlipidemia, unspecified Is this a current diagnosis for this admission?: YesPlan: Resume home medications as appropriate once these have been determined and reviewed. (6) Hypertension Qualifiers: Hypertension type: essential hypertension Qualified Code(s): I10 - Essential (primary) hypertension Is this a current diagnosis for this admission?: YesPlan: Resume home medications as appropriate once these have been determined and reviewed. (7) Steroid-dependent asthma Qualifiers: Asthma severity: unspecified severity Asthma complication type: uncomplicated Qualified Code(s): J45.909 - Unspecified asthma, uncomplicated Is this a current diagnosis for this admission?: YesPlan: No evidence of acute exacerbation of same. Will increase prednisone from 10-20 mg a day. Prevacid for gastritis prophylaxis. (8) JUANITO (obstructive sleep apnea) Is this a current diagnosis for this admission?: YesPlan: Suspected condition. Final testing pending. Will institute CPAP if apneic symptoms are observed. - Inpatient Certification Based on my medical assessment, after consideration of the patient's comorbidities, presenting symptoms, or acuity I expect that the services needed warrant INPATIENT care.: Yes I certify that my determination is in accordance with my understanding of Medicare's requirements for reasonable and necessary INPATIENT services [42 CFR 412.3e].: Yes Medical Necessity: Significant Comorbidiites Make Outpatient Treatment Too Risky , Need Close Monitoring Due to Risk of Patient Decompensation, Need For Continuous Telemetry Monitoring, Need for Nebulizer Therapy and Monitoring of Response, Need for IV Antibiotics, Risk of Complication if Not Cared For in Hospital Post Hospital Care: D/C or Transfer Summary
[2016-11-26] MEDS ORDERED: PREDNISONE 10 MG TABLET PO ONE (21:30)
[2016-11-26] MEDS: HEPARIN SOD (PORCINE) 5,000 UNIT/ML 1 ML SYRINGE SUBCUT SCH (21:53)
[2016-11-26] MEDS ORDERED: MAGNESIUM SULFATE/D5W 1 GM/100 ML RTUPB IV ONE (23:00)
[2016-11-27] MEDS ORDERED: AZTREONAM INJ 1 GM VIAL ONE (05:14)
[2016-11-27] MEDS: AZTREONAM 0.5 GM in DEXTROSE 5%-WATER 50 ML IV SCH ×3 (05:51→21:48)
[2016-11-27] MEDS: LANSOPRAZOLE 30 MG TAB.RAP.DR PO SCH (05:51)
[2016-11-27] MEDS ORDERED: AZTREONAM 1 GM in DEXTROSE 5%-WATER 50 ML IV SCH (06:00)
[2016-11-27 07:15] LABS: ABSOLUTE LYMPHOCYTES (AUTO) 0.7 10^3/uL (0.5-4.7); ABSOLUTE MONOCYTES (AUTO) 0.7 10^3/uL (0.1-1.4); BASOPHILS % (AUTO) 0.2 % (0-2); EOSINOPHILS % (AUTO) 0.1 % (0-6); HEMATOCRIT 35.3 % (36.0-47.0); HEMOGLOBIN 11.6 g/dL (12.0-15.5); HGB HCT DIFFERENCE -0.5; LYMPHOCYTES % (AUTO) 8.1 % (13-45); MEAN CORPUSCULAR HEMOGLOBIN 32.5 pg (27.0-33.4); MEAN CORPUSCULAR VOLUME 99 fl (80-97); MONOCYTES % (AUTO) 8.5 % (3-13); RED BLOOD COUNT 3.58 10^6/uL (3.72-5.28); SEGMENTED NEUTROPHILS % (AUTO) 83.1 % (42-78); WHITE BLOOD COUNT 8.5 10^3/uL (4.0-10.5)
[2016-11-27 07:35] LABS: ALANINE AMINOTRANSFERASE 71 U/L (9-52); ALBUMIN 2.8 g/dL (3.5-5.0); ALKALINE PHOSPHATASE 128 U/L (38-126); ANION GAP 8 (5-19); ASPARTATE AMINO TRANSFERASE 83 U/L (14-36); BILIRUBIN,DIRECT 0.4 mg/dL (0.0-0.4); BILIRUBIN,TOTAL 1.2 mg/dL (0.2-1.3); BLOOD UREA NITROGEN 38 mg/dL (7-20); CALCIUM 8.4 mg/dL (8.4-10.2); CARBON DIOXIDE 24 mmol/L (22-30); CHLORIDE 109 mmol/L (98-107); CREATININE RESULT 2.19 mg/dL (0.52-1.25); GLUCOSE 148 mg/dL (75-110); POTASSIUM 4.2 mmol/L (3.6-5.0); SODIUM 141.3 mmol/L (137-145); TOTAL PROTEIN 4.7 g/dL (6.3-8.2)
[2016-11-27] MEDS: GABAPENTIN 300 MG CAPSULE PO SCH (09:55)
[2016-11-27] MEDS: ESCITALOPRAM OXALATE 10 MG TABLET PO SCH (09:55)
[2016-11-27] MEDS: ASPIRIN 81 MG TABLET, ENT COATED PO SCH (09:55)
[2016-11-27] MEDS: BUDESONIDE/FORMOTEROL 160-4.5 MCG 60 PUFF/6 GM MDI IH SCH ×2 (09:56→21:48)
[2016-11-27] MEDS: DOXYCYCLINE HYCLATE 100 MG TABLET PO SCH ×2 (09:56→21:49)
[2016-11-27] MEDS: SERTRALINE HCL 50 MG TABLET PO SCH (09:56)
[2016-11-27] MEDS: PREDNISONE 20 MG TABLET PO SCH (09:56)
[2016-11-27] MEDS: HEPARIN SOD (PORCINE) 5,000 UNIT/ML 1 ML SYRINGE SUBCUT SCH ×2 (09:57→21:49)
[2016-11-27] MEDS: BACLOFEN 10 MG TABLET PO SCH (09:58)
[2016-11-27] MEDS ORDERED: (PENDING PHARMACY ID) (Sertraline Hcl [Zoloft] 50 MG) PO SCH (10:00)
[2016-11-27] MEDS ORDERED: AZITHROMYCIN 500 MG in DEXTROSE 5%-WATER 250 ML IV SCH (10:00)
[2016-11-27] MEDS ORDERED: AMLODIPINE BESYLATE 5 MG TABLET PO SCH (10:00)
[2016-11-27] MEDS ORDERED: METOPROLOL TARTRATE 50 MG TABLET PO SCH ×2 (10:00→10:58)
[2016-11-27] MEDS ORDERED: FUROSEMIDE INJ/PF 40 MG/4 ML SDV IV ONE (10:58)
--- NOTE | 2016-11-27 11:11 | PDOC PROGRESS REPORT ---
Subjective Progress Note for:: 11/27/16 Subjective:: Minimal cough, no acute SOB, chronic intermittent wheezing, denies chest congestion nor pleurisy. Came w/ back pain and abd. Pain w/c has improved. Physical Exam Vital Signs: Temp Pulse Resp BP Pulse Ox 97.6 F 74 18 105/64 96 11/27/16 07:53 11/27/16 10:56 11/27/16 10:56 11/27/16 07:53 11/27/16 10:56 Intake & Output 11/26/16 11/27/16 11/28/16 06:59 06:59 06:59 Intake Total 463 Output Total 750 Balance -287 General appearance: PRESENT: no acute distress, cooperative, obese Head exam: PRESENT: normocephalic Eye exam: PRESENT: EOMI Mouth exam: PRESENT: moist, neck supple Neck exam: ABSENT: JVD Respiratory exam: PRESENT: clear to auscultation smiley - anteriorly. ABSENT: wheezes Cardiovascular exam: PRESENT: RRR. ABSENT: gallop GI/Abdominal exam: PRESENT: hypoactive bowel sounds, soft. ABSENT: distended - obese Extremities exam: ABSENT: pedal edema Neurological exam: PRESENT: alert, awake, oriented to person, oriented to place , oriented to time, oriented to situation Skin exam: PRESENT: dry, warm. ABSENT: cyanosis Results Laboratory Results: 11/27/16 06:47 11/27/16 06:47 11/26/16 11/27/16 11/27/16 21:35 06:47 06:47 WBC 8.5 RBC 3.58 L Hgb 11.6 L Hct 35.3 L MCV 99 H MCH 32.5 MCHC 33.0 RDW 14.0 Plt Count 123 L Seg Neutrophils % 83.1 H Lymphocytes % 8.1 L Monocytes % 8.5 Eosinophils % 0.1 Basophils % 0.2 Absolute Neutrophils 7.0 Absolute Lymphocytes 0.7 Absolute Monocytes 0.7 Absolute Eosinophils 0.0 Absolute Basophils 0.0 Sodium 141.3 Potassium 4.2 Chloride 109 H Carbon Dioxide 24 Anion Gap 8 BUN 38 H Creatinine 2.19 H Est GFR ( Amer) 27 L Est GFR (Non-Af Amer) 22 L Glucose 148 H Lactic Acid 2.1 Calcium 8.4 Magnesium 2.0 Total Bilirubin 1.2 AST 83 H ALT 71 H Alkaline Phosphatase 128 H Total Protein 4.7 L Albumin 2.8 L Impressions: Chest X-Ray 11/26/16 00:00 IMPRESSION: Vascular congestion. Suspect superimposed basilar pneumonia. Abdomen/Pelvis CT 11/26/16 14:09 IMPRESSION: No acute findings Multiple bilateral renal and pancreatic cysts, intact ventral hernia repair, colonic diverticulosis without CT signs of acute diverticulitis 6 mm calcification along the left bladder trigone, bladder stone versus stone in a ureterocele versus bladder mucosal calcification. No left hydronephrosis/ hydroureter. Assessment & Plan - Diagnosis (1) UTI (urinary tract infection) Qualifiers: Urinary tract infection type: site unspecified Hematuria presence: without hematuria Qualified Code(s): N39.0 - Urinary tract infection, site not specified Is this a current diagnosis for this admission?: Yes (2) Bacteremia Is this a current diagnosis for this admission?: Yes (3) Acute renal failure superimposed on stage 3 chronic kidney disease Qualifiers: Acute renal failure type: unspecified Qualified Code(s): N17.9 - Acute kidney failure, unspecified; N18.3 - Chronic kidney disease, stage 3 ( moderate) Is this a current diagnosis for this admission?: Yes (4) Pulmonary vascular congestion Is this a current diagnosis for this admission?: Yes (5) Nephrolithiasis Is this a current diagnosis for this admission?: Yes (6) Elevated LFTs Is this a current diagnosis for this admission?: Yes (7) Asthma Qualifiers: Asthma severity: unspecified severity Asthma complication type: uncomplicated Qualified Code(s): J45.909 - Unspecified asthma, uncomplicated Is this a current diagnosis for this admission?: Yes (8) CAD (coronary artery disease) Qualifiers: Coronary Disease-Associated Artery/Lesion type: [place] artery [place] vs. transplanted heart: squ[place] heart Associated angina: without angina Qualified Code(s): I25.10 - Atherosclerotic heart disease of [place]ax[place] coronary artery without angina pectoris Is this a current diagnosis for this admission?: Yes (9) COPD (chronic obstructive pulmonary disease) Qualifiers: COPD type: unspecified COPD Qualified Code(s): J44.9 - Chronic obstructive pulmonary disease, unspecified Is this a current diagnosis for this admission?: Yes (10) Diastolic CHF Qualifiers: Congestive heart failure chronicity: chronic Qualified Code(s): I50.32 - Chronic diastolic (congestive) heart failure Is this a current diagnosis for this admission?: Yes (11) Fibromyalgia Is this a current diagnosis for this admission?: Yes (12) Hyperlipidemia Qualifiers: Hyperlipidemia type: unspecified Qualified Code(s): E78.5 - Hyperlipidemia, unspecified Is this a current diagnosis for this admission?: Yes (13) Hypertension Qualifiers: Hypertension type: essential hypertension Qualified Code(s): I10 - Essential (primary) hypertension Is this a current diagnosis for this admission?: Yes (14) JUANITO (obstructive sleep apnea) Is this a current diagnosis for this admission?: Yes - Time Time Spent with patient: 25-34 minutes - Plan Summary Plan Summary: Cont. antibiotics. Follow cultures. D/C norvasc. Decrease dose of metoprolol. Give 1 dose of lasix. Cont. other meds and supportive care. CXR seems expiratory rather than inspiratory. Possibly w/o pneumonia as patient denies any worsening resp. condition than baseline.
[2016-11-27] MEDS: TRAMADOL HCL 50 MG TABLET PO PRN ×2 (16:14→22:08)
[2016-11-27] MEDS: MONTELUKAST SODIUM 10 MG TABLET PO SCH (21:48)
[2016-11-27] MEDS: ATORVASTATIN CALCIUM 40 MG TABLET PO SCH (21:49)
[2016-11-27] MEDS: METOPROLOL TARTRATE 25 MG TABLET PO SCH (21:49)
[2016-11-28] MEDS: AZTREONAM 0.5 GM in DEXTROSE 5%-WATER 50 ML IV SCH ×3 (05:01→21:52)
[2016-11-28] MEDS: LANSOPRAZOLE 30 MG TAB.RAP.DR PO SCH (05:01)
[2016-11-28 05:59] LABS: ANION GAP 12 (5-19); BLOOD UREA NITROGEN 44 mg/dL (7-20); CALCIUM 8.2 mg/dL (8.4-10.2); CARBON DIOXIDE 23 mmol/L (22-30); CHLORIDE 103 mmol/L (98-107); CREATININE RESULT 2.26 mg/dL (0.52-1.25); GLUCOSE 171 mg/dL (75-110); POTASSIUM 3.6 mmol/L (3.6-5.0); SODIUM 137.5 mmol/L (137-145)
--- NOTE | 2016-11-28 09:24 | PDOC PROGRESS REPORT ---
Subjective Progress Note for:: 11/28/16 Subjective:: Patient complains of dyspnea on exertion and easy fatigability. Denies any chills or fever. No PND orthopnea. Shortness of breath however is close to baseline. No reported nausea or vomiting, no diarrhea, no respiratory distress Reported. Physical Exam Vital Signs: Temp Pulse Resp BP Pulse Ox 97.8 F 69 18 131/68 H 97 11/28/16 07:56 11/28/16 07:56 11/28/16 07:56 11/28/16 07:56 11/28/16 07:56 Intake & Output 11/27/16 11/28/16 11/29/16 06:59 06:59 06:59 Intake Total 463 1049 Output Total 750 2450 Balance -287 -1401 Weight 66.877 kg General appearance: PRESENT: no acute distress, obese Head exam: PRESENT: normocephalic Eye exam: PRESENT: EOMI Mouth exam: PRESENT: moist, neck supple Neck exam: ABSENT: JVD Respiratory exam: PRESENT: clear to auscultation smiley. ABSENT: rhonchi, wheezes Cardiovascular exam: PRESENT: RRR. ABSENT: gallop GI/Abdominal exam: PRESENT: hypoactive bowel sounds, soft Extremities exam: ABSENT: pedal edema Neurological exam: PRESENT: alert, awake, oriented to situation Skin exam: PRESENT: dry, warm. ABSENT: cyanosis Results Laboratory Results: 11/27/16 06:47 11/28/16 05:24 11/28/16 05:24 Sodium 137.5 Potassium 3.6 Chloride 103 Carbon Dioxide 23 Anion Gap 12 BUN 44 H Creatinine 2.26 H Est GFR ( Amer) 26 L Est GFR (Non-Af Amer) 21 L Glucose 171 H Calcium 8.2 L Impressions: Chest X-Ray 11/26/16 00:00 IMPRESSION: Vascular congestion. Suspect superimposed basilar pneumonia. Abdomen/Pelvis CT 11/26/16 14:09 IMPRESSION: No acute findings Multiple bilateral renal and pancreatic cysts, intact ventral hernia repair, colonic diverticulosis without CT signs of acute diverticulitis 6 mm calcification along the left bladder trigone, bladder stone versus stone in a ureterocele versus bladder mucosal calcification. No left hydronephrosis/ hydroureter. Assessment & Plan - Diagnosis (1) UTI (urinary tract infection) Qualifiers: Urinary tract infection type: site unspecified Hematuria presence: without hematuria Qualified Code(s): N39.0 - Urinary tract infection, site not specified Is this a current diagnosis for this admission?: Yes (2) Bacteremia Is this a current diagnosis for this admission?: Yes (3) Acute renal failure superimposed on stage 3 chronic kidney disease Qualifiers: Acute renal failure type: unspecified Qualified Code(s): N17.9 - Acute kidney failure, unspecified; N18.3 - Chronic kidney disease, stage 3 ( moderate) Is this a current diagnosis for this admission?: Yes (4) Pulmonary vascular congestion Is this a current diagnosis for this admission?: Yes (5) Nephrolithiasis Is this a current diagnosis for this admission?: Yes (6) Elevated LFTs Is this a current diagnosis for this admission?: Yes (7) Asthma Qualifiers: Asthma severity: unspecified severity Asthma complication type: uncomplicated Qualified Code(s): J45.909 - Unspecified asthma, uncomplicated Is this a current diagnosis for this admission?: Yes (8) CAD (coronary artery disease) Qualifiers: Coronary Disease-Associated Artery/Lesion type: [place] artery [place] vs. transplanted heart: [place] heart Associated angina: without angina Qualified Code(s): I25.10 - Atherosclerotic heart disease of [place] coronary artery without angina pectoris Is this a current diagnosis for this admission?: Yes (9) COPD (chronic obstructive pulmonary disease) Qualifiers: COPD type: unspecified COPD Qualified Code(s): J44.9 - Chronic obstructive pulmonary disease, unspecified Is this a current diagnosis for this admission?: Yes (10) Diastolic CHF Qualifiers: Congestive heart failure chronicity: chronic Qualified Code(s): I50.32 - Chronic diastolic (congestive) heart failure Is this a current diagnosis for this admission?: Yes (11) Fibromyalgia Is this a current diagnosis for this admission?: Yes (12) Hyperlipidemia Qualifiers: Hyperlipidemia type: unspecified Qualified Code(s): E78.5 - Hyperlipidemia, unspecified Is this a current diagnosis for this admission?: Yes (13) Hypertension Qualifiers: Hypertension type: essential hypertension Qualified Code(s): I10 - Essential (primary) hypertension Is this a current diagnosis for this admission?: Yes (14) JUANITO (obstructive sleep apnea) Is this a current diagnosis for this admission?: Yes - Time Time Spent with patient: 25-34 minutes - Plan Summary Plan Summary: Continue antibiotics, follow cultures, begin physical therapy. Obtain chest x- ray. Recheck creatinine in the morning. Continue other medications and supportive care. Patient slightly improved overall.
[2016-11-28] MEDS: SERTRALINE HCL 50 MG TABLET PO SCH (09:52)
[2016-11-28] MEDS: PREDNISONE 20 MG TABLET PO SCH (09:52)
[2016-11-28] MEDS: ASPIRIN 81 MG TABLET, ENT COATED PO SCH (09:52)
[2016-11-28] MEDS: METOPROLOL TARTRATE 25 MG TABLET PO SCH ×2 (09:52→21:52)
[2016-11-28] MEDS: GABAPENTIN 300 MG CAPSULE PO SCH (09:52)
[2016-11-28] MEDS: DOXYCYCLINE HYCLATE 100 MG TABLET PO SCH ×2 (09:52→21:52)
[2016-11-28] MEDS: BUDESONIDE/FORMOTEROL 160-4.5 MCG 60 PUFF/6 GM MDI IH SCH ×2 (09:52→22:10)
[2016-11-28] MEDS: ESCITALOPRAM OXALATE 10 MG TABLET PO SCH (09:52)
[2016-11-28] MEDS: BACLOFEN 10 MG TABLET PO SCH (09:52)
[2016-11-28] MEDS: HEPARIN SOD (PORCINE) 5,000 UNIT/ML 1 ML SYRINGE SUBCUT SCH ×2 (09:53→22:05)
--- NOTE | 2016-11-28 10:31 | RADIOLOGY REPORT (SQ) ---
EXAM DESCRIPTION: CHEST PA/LAT COMPLETED DATE/TIME: 11/28/2016 10:21 am REASON FOR STUDY: SOB, effusion COMPARISON: CT angio chest 04/20/2016 AP chest 10/13/2016 EXAM PARAMETERS: NUMBER OF VIEWS: two views TECHNIQUE: Digital Frontal and Lateral radiographic views of the chest acquired. RADIATION DOSE: NA LIMITATIONS: none FINDINGS: LUNGS AND PLEURA: No opacities, masses or pneumothorax. No pleural effusion. MEDIASTINUM AND HILAR STRUCTURES: No masses or contour abnormalities. HEART AND VASCULAR STRUCTURES: Heart normal size. No evidence for failure. BONES: Diffuse thoracic spondylotic change HARDWARE: None in the chest. OTHER: No other significant finding. IMPRESSION: NO SIGNIFICANT RADIOGRAPHIC FINDING IN THE CHEST. TECHNICAL DOCUMENTATION: JOB ID: [id number] [employer]- All Rights Reserved
[2016-11-28] MEDS: TRAMADOL HCL 50 MG TABLET PO PRN (18:06)
[2016-11-28] MEDS: ATORVASTATIN CALCIUM 40 MG TABLET PO SCH (21:51)
[2016-11-28] MEDS: MONTELUKAST SODIUM 10 MG TABLET PO SCH (21:52)
[2016-11-29] MEDS: LANSOPRAZOLE 30 MG TAB.RAP.DR PO SCH (05:46)
[2016-11-29] MEDS: AZTREONAM 0.5 GM in DEXTROSE 5%-WATER 50 ML IV SCH ×2 (05:46→15:13)
[2016-11-29 06:00] LABS: ANION GAP 11 (5-19); BLOOD UREA NITROGEN 40 mg/dL (7-20); CALCIUM 8.6 mg/dL (8.4-10.2); CARBON DIOXIDE 22 mmol/L (22-30); CHLORIDE 105 mmol/L (98-107); CREATININE RESULT 1.85 mg/dL (0.52-1.25); GLUCOSE 130 mg/dL (75-110); POTASSIUM 4.2 mmol/L (3.6-5.0); SODIUM 137.6 mmol/L (137-145)
[2016-11-29] MEDS: BUDESONIDE/FORMOTEROL 160-4.5 MCG 60 PUFF/6 GM MDI IH SCH (09:55)
[2016-11-29] MEDS: METOPROLOL TARTRATE 25 MG TABLET PO SCH (09:55)
[2016-11-29] MEDS: SERTRALINE HCL 50 MG TABLET PO SCH (09:55)
[2016-11-29] MEDS: PREDNISONE 20 MG TABLET PO SCH (09:56)
[2016-11-29] MEDS: HEPARIN SOD (PORCINE) 5,000 UNIT/ML 1 ML SYRINGE SUBCUT SCH (09:56)
[2016-11-29] MEDS: DOXYCYCLINE HYCLATE 100 MG TABLET PO SCH (09:56)
[2016-11-29] MEDS: ASPIRIN 81 MG TABLET, ENT COATED PO SCH (09:56)
[2016-11-29] MEDS: ESCITALOPRAM OXALATE 10 MG TABLET PO SCH (09:56)
[2016-11-29] MEDS: BACLOFEN 10 MG TABLET PO SCH (09:56)
[2016-11-29] MEDS: GABAPENTIN 300 MG CAPSULE PO SCH (09:56)
[2016-11-29 12:25] VITALS: BP 115/69
--- NOTE | 2016-11-29 17:10 | PDOC DISCHARGE SUMMARY ---
General - Admit/Disc Date/PCP Admission Date/Primary Care Provider: 11/26/16 21:00 CASIMIRO WATKINS MD Discharge Date: 11/29/16 - Discharge Diagnosis (1) UTI (urinary tract infection) Is this a current diagnosis for this admission?: Yes (2) Bacteremia Is this a current diagnosis for this admission?: Yes (3) Acute renal failure superimposed on stage 3 chronic kidney disease Is this a current diagnosis for this admission?: Yes (4) Pulmonary vascular congestion Is this a current diagnosis for this admission?: Yes (5) Nephrolithiasis Is this a current diagnosis for this admission?: Yes (6) Elevated LFTs Is this a current diagnosis for this admission?: Yes (7) Asthma Is this a current diagnosis for this admission?: Yes (8) CAD (coronary artery disease) Is this a current diagnosis for this admission?: Yes (9) COPD (chronic obstructive pulmonary disease) Is this a current diagnosis for this admission?: Yes (10) Diastolic CHF Is this a current diagnosis for this admission?: Yes (11) Fibromyalgia Is this a current diagnosis for this admission?: Yes (12) Hyperlipidemia Is this a current diagnosis for this admission?: Yes (13) Hypertension Is this a current diagnosis for this admission?: Yes (14) JUANITO (obstructive sleep apnea) Is this a current diagnosis for this admission?: Yes - Additional Information Resuscitation Status: Full Code Discharge Diet: Cardiac Discharge Activity: Activity As Tolerated, Balance Activity w/Rest, Slowly Increase Activity Home Medications: Albuterol Sulfate [Proair HFA] 2 puff IH Q4HP PRN 11/26/16 Aspirin [Aspirin EC] 81 mg PO DAILY 11/26/16 Atorvastatin Calcium [Lipitor 40 mg Tablet] 40 mg PO QHS 11/26/16 Baclofen [Baclofen 10 mg Tablet] 10 mg PO DAILY 11/26/16 Budesonide/Formoterol Fumarate [Symbicort HFA 160-4.5 mcg Inhaler 6 gm] 2 puff IH Q12 11/26/16 Escitalopram Oxalate [Lexapro 10 mg Tablet] 10 mg PO DAILY 11/26/16 Esomeprazole Magnesium [Nexium] 40 mg PO QAM 11/26/16 Gabapentin [Neurontin 300 mg Capsule] 300 mg PO BID 11/26/16 Metoprolol Tartrate [Lopressor 50 mg Tablet] 50 mg PO Q12 11/26/16 Montelukast Sodium [Singulair 10 mg Tablet] 10 mg PO DAILY 11/26/16 Multivitamin [Tab-A-Gustavo] 1 each PO DAILY 11/26/16 Prednisone [Deltasone 10 mg Tablet] 10 mg PO BID 11/26/16 Sertraline HCl [Zoloft] 100 mg PO DAILY 11/26/16 Tramadol HCl [Ultram 50 mg Tablet] 50 mg PO BIDP PRN 11/26/16 Triamterene/Hydrochlorothiazid [Triamterene-Hctz 37.5-25 mg Tb] 1 each PO DAILY 11/26/16 Levofloxacin [Levaquin 750 mg Tablet] 750 mg PO Q48H #6 tab 11/29/16 Additional Information: Return to the emergency room if symptoms recur. Home health for physical therapy. 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 Patient has been discussed with emergency room physician who evaluated the patient. Cramping pain that radiated to her back. Patient states this was similar pain she had experienced with a hernia that had been repaired with mesh in the past. Nausea but no vomiting. No dysuria. Occasional diarrhea, which is a chronic problem for her, without recent change. No chest pain. As noted above, abdominal pain is now resolved. During her evaluation in the emergency room, patient began having prominent shaking chills, with a fever 101+ . X-rays reveal suspected bibasilar pneumonia. Chronic cough without recent change. No antibiotic or hospitalization within the last 3 months. No use of alcohol tobacco or illicit drugs. Hospitalized on our service basically overnight February 27-2014 with final diagnoses including chest pain and COPD exacerbation. Discharge summary has been reviewed. Was also admitted to our service February [id number] for chest pain. History and physical has been reviewed. Currently resting quietly, pain-free, stating that she feels a bit better. Laboratory results are listed in [facility] and are reviewed. X-ray summary results are listed below, with full report(s) reviewed. . Hospital Course Hospital Course: The patient was admitted to [facility]. And impression of pneumonia was given as well as a urinary tract infection. Patient was started on broad-spectrum antibiotic and cultures of the blood as well as the urine were done. Chest x- ray however did not show infiltrate suggestive of pneumonia. Patient likewise denies any acute symptoms of pneumonia. Chest x-ray reviewed and showing some changes suggestive of effusion. Likewise congestion was suggested. Patient received intravenous fluids in the emergency room. Patient was given diuretic. Follow-up chest x-ray did not reveal any acute infiltrate at all with PA and lateral. Therefore pneumonia unlikely on this visit. However the patient grew Klebsiella on the blood but only on one blood culture bottle. Her urine culture grew mixed organisms however. Patient felt generally weak and physical therapy was instituted. She was continued on her steroids as well as bronchodilators and oxygen. Patient subsequently improved and wanting to go home and continue treatment on an outpatient basis. Daughter is at bedside who agreed with her. They were advised to return to the emergency room if symptoms recur. Home health was set up for physical therapy. Physical Exam Vital Signs: Temp Pulse Resp BP Pulse Ox 98.0 F 74 18 115/69 98 11/29/16 16:13 11/29/16 16:13 11/29/16 16:13 11/29/16 11:12 11/29/16 16:13 Intake & Output 11/28/16 11/29/16 11/30/16 06:59 06:59 06:59 Intake Total 1049 1473 277 Output Total 2450 1175 200 Balance -1401 298 77 Weight 66.877 kg 64 kg General appearance: PRESENT: no acute distress, obese Head exam: PRESENT: normocephalic Eye exam: PRESENT: EOMI Mouth exam: PRESENT: moist, neck supple Neck exam: ABSENT: JVD Respiratory exam: PRESENT: rhonchi - Minimal, unlabored. ABSENT: wheezes Cardiovascular exam: PRESENT: RRR. ABSENT: gallop GI/Abdominal exam: PRESENT: soft. ABSENT: tenderness Extremities exam: PRESENT: other - Trace edema Neurological exam: PRESENT: alert, awake, oriented to person, oriented to place , oriented to time, oriented to situation Skin exam: PRESENT: dry, warm. ABSENT: cyanosis Results Laboratory Results: 11/27/16 06:47 11/29/16 05:10 11/29/16 05:10 Sodium 137.6 Potassium 4.2 Chloride 105 Carbon Dioxide 22 Anion Gap 11 BUN 40 H Creatinine 1.85 H Est GFR ( Amer) 32 L Est GFR (Non-Af Amer) 27 L Glucose 130 H Calcium 8.6 Impressions: Abdomen/Pelvis CT 11/26/16 14:09 IMPRESSION: No acute findings Multiple bilateral renal and pancreatic cysts, intact ventral hernia repair, colonic diverticulosis without CT signs of acute diverticulitis 6 mm calcification along the left bladder trigone, bladder stone versus stone in a ureterocele versus bladder mucosal calcification. No left hydronephrosis/ hydroureter. Chest X-Ray 11/28/16 00:00 IMPRESSION: NO SIGNIFICANT RADIOGRAPHIC FINDING IN THE CHEST. Qualifiers PATEINT BEING DISCHARGED WITH ANY OF THE FOLLOWING DIAGNOSIS?: No Plan Time Spent: Less than 30 Minutes - Follow-up with primary care physician in 1 week.
== END 2016-11-29 16:58 | disposition home health service (06) | DRG 690 ==
LOC: ER 12:59 → EH 20:23 → UNDOADMIN 20:23 → EH 21:00 → 3S 23:20
PROVIDERS: ADMIT Family Medicine; ATTEND Family Medicine
DX: N39.0 Urinary tract infection, site not specified (principal); I13.0 Hypertensive heart and chronic kidney disease with heart failure and stage 1 through stage 4 chronic kidney disease, or unspecified chronic kidney disease; I50.32 Chronic diastolic (congestive) heart failure; N17.9 Acute kidney failure, unspecified; R78.81 Bacteremia; N18.3 Chronic kidney disease, stage 3 (moderate); J44.9 Chronic obstructive pulmonary disease, unspecified; Z79.52 Long term (current) use of systemic steroids; I25.10 Atherosclerotic heart disease of native coronary artery without angina pectoris; M06.9 Rheumatoid arthritis, unspecified; M79.7 Fibromyalgia; F41.9 Anxiety disorder, unspecified; F32.9 Major depressive disorder, single episode, unspecified; E78.5 Hyperlipidemia, unspecified; H54.12 Blindness, left eye, low vision right eye; K21.9 Gastro-esophageal reflux disease without esophagitis; L30.9 Dermatitis, unspecified; G47.33 Obstructive sleep apnea (adult) (pediatric); B96.1 Klebsiella pneumoniae [K. pneumoniae] as the cause of diseases classified elsewhere; Z86.73 Personal history of transient ischemic attack (TIA), and cerebral infarction without residual deficits; J45.909 Unspecified asthma, uncomplicated; Z83.3 Family history of diabetes mellitus; Z80.9 Family history of malignant neoplasm, unspecified; Z82.49 Family history of ischemic heart disease and other diseases of the circulatory system; Z88.0 Allergy status to penicillin; Z88.2 Allergy status to sulfonamides; Z79.82 Long term (current) use of aspirin; Z87.442 Personal history of urinary calculi
CPT/HCPCS: 36415; 71010; 71020; 74176; 80048; 80053; 81001; 83605; 83690; 83735; 85025; 85610; 85730; 87040; 87070; 87077; 87086; 87186; 87205; 94799; 96361; 96374; 96375; 96376; 99291; J0692; J1644; J1940; J1956; J2270; J2405; J3475; J3490; J7030; J7512

== ENCOUNTER 2017-01-22 15:05 | Emergency (ER) | payer MEDICARE, OTHER ==
[2017-01-22 15:17] VITALS: BP 148/72
--- NOTE | 2017-01-22 15:39 | ER Document Report ---
ED Medical Screen (RME) - General Chief Complaint: Swelling Stated Complaint: POSSIBLE ALLERGIC REACTION Time Seen by Provider: 01/22/17 15:36 Notes: pt brought in by daughter for diffuse swelling and sob. no allergie symptoms or itching. pt has hx of copd and chf. also has hx of "kidney disease". TRAVEL OUTSIDE OF THE [place] IN LAST 30 DAYS: No - Related Data Allergies/Adverse Reactions: Penicillins Allergy (Mild, Verified 01/22/17 15:07) Hives rofecoxib [From Vioxx] Allergy (Mild, Verified 01/22/17 15:07) Hives Sulfa (Sulfonamide Antibiotics) Allergy (Mild, Verified 01/22/17 15:07) Hives Past Medical History - Social History Frequency of alcohol use: None Drug Abuse: None - Past Medical History Cardiac Medical History: Reports: Hx Congestive Heart Failure - Diastolic, Hx Coronary Artery Disease, Hx Heart Attack - 2016, Hx Hypercholesterolemia, Hx Hypertension Denies: Hx DVT, Hx Pulmonary Embolism Pulmonary Medical History: Reports: Hx Asthma - Steroid dependent, Hx Bronchitis , Hx COPD, Hx Pneumonia - > than 5 yrs ago, Hx Sleep Apnea - Suspected, with further testing pending. Neurological Medical History: Reports: Hx Cerebrovascular Accident - Multiple ( last one at least 10 yrs ago). Denies: Hx Seizures Endocrine Medical History: Denies: Hx Diabetes Mellitus Type 1, Hx Diabetes Mellitus Type 2, Hx Hyperthyroidism, Hx Hypothyroidism Renal/ Medical History: Reports: Hx Kidney Stones. Denies: Hx Peritoneal Dialysis GI Medical History: Reports: Hx Gastritis, Hx Gastroesophageal Reflux Disease, Hx Ulcer - gastric non bleeding. Denies: Hx Cirrhosis, Hx Hepatitis Musculoskeltal Medical History: Reports Hx Arthritis - Rheumatoid, Reports Hx Fibromyalgia, Reports Hx Musculoskeletal Deformity Skin Medical History: Reports Hx Eczema Psychiatric Medical History: Reports: Hx Anxiety, Hx Depression - Denies suicidal or homicidal ideation Infectious Medical History: Denies: Hx Hepatitis Past Surgical History: Reports: Hx Adenoidectomy, Hx Cardiac Catheterization - no stents, Hx Gynecologic Surgery - uterine fibroid removal, Hx Tonsillectomy, Hx Tubal Ligation - Immunizations Hx Diphtheria, Pertussis, Tetanus Vaccination: No Physical Exam - Vital signs Vitals: Temp Pulse Resp BP Pulse Ox 98.3 F 85 20 148/72 H 97 01/22/17 15:13 01/22/17 15:13 01/22/17 15:13 01/22/17 15:13 01/22/17 15:13 Course - Vital Signs Vital signs: Temp Pulse Resp BP Pulse Ox 98.3 F 85 20 148/72 H 97 01/22/17 15:13 01/22/17 15:13 01/22/17 15:13 01/22/17 15:13 01/22/17 15:13
[2017-01-22 16:19] LABS: ABSOLUTE BASOPHILS # (AUTO) 0.1 10^3/uL (0.0-0.2); ABSOLUTE LYMPHOCYTES (AUTO) 1.2 10^3/uL (0.5-4.7); ABSOLUTE MONOCYTES (AUTO) 0.7 10^3/uL (0.1-1.4); ABSOLUTE NEUT (AUTO) 8.6 10^3/uL (1.7-8.2); BASOPHILS % (AUTO) 0.7 % (0-2); EOSINOPHILS % (AUTO) 0.4 % (0-6); HEMATOCRIT 33.8 % (36.0-47.0); HGB HCT DIFFERENCE -0.8; LYMPHOCYTES % (AUTO) 11.2 % (13-45); MEAN CORPUSCULAR HGB CONC 32.5 g/dL (32.0-36.0); MEAN CORPUSCULAR VOLUME 98 fl (80-97); MONOCYTES % (AUTO) 6.3 % (3-13); RED BLOOD COUNT 3.43 10^6/uL (3.72-5.28); RED CELL DISTRIBUTION WIDTH 14.6 % (11.5-14.0); SEGMENTED NEUTROPHILS % (AUTO) 81.4 % (42-78); WHITE BLOOD COUNT 10.5 10^3/uL (4.0-10.5)
[2017-01-22 16:24] LABS: APPEARANCE,URINE CLEAR; BILIRUBIN,URINE NEGATIVE (NEGATIVE); GLUCOSE, URINE 50 mg/dL (NEGATIVE); KETONES,URINE NEGATIVE (NEGATIVE); LEUKOCYTE ESTERASE,URINE NEGATIVE (NEGATIVE); NITRITE,URINE NEGATIVE (NEGATIVE); PROTEIN,URINE NEGATIVE (NEGATIVE); URINE SPECIFIC GRAVITY 1.014; UROBILINOGEN,URINE NEGATIVE mg/dL (<2.0)
[2017-01-22 16:41] LABS: ALANINE AMINOTRANSFERASE 16 U/L (9-52); ALBUMIN 3.3 g/dL (3.5-5.0); ALKALINE PHOSPHATASE 249 U/L (38-126); ANION GAP 15 (5-19); ASPARTATE AMINO TRANSFERASE 17 U/L (14-36); BILIRUBIN,DIRECT 0.3 mg/dL (0.0-0.4); BILIRUBIN,TOTAL 0.3 mg/dL (0.2-1.3); BLOOD UREA NITROGEN 47 mg/dL (7-20); CALCIUM 9.8 mg/dL (8.4-10.2); CARBON DIOXIDE 22 mmol/L (22-30); CHLORIDE 108 mmol/L (98-107); GLUCOSE 109 mg/dL (75-110); POTASSIUM 3.7 mmol/L (3.6-5.0); SODIUM 144.6 mmol/L (137-145)
--- NOTE | 2017-01-22 16:51 | RADIOLOGY REPORT (SQ) ---
EXAM DESCRIPTION: CHEST PA/LAT COMPLETED DATE/TIME: 01/22/2017 4:24 pm REASON FOR STUDY: sob COMPARISON: Chest films 11/28/2016, 11/26/2016 CT angio chest 04/20/2016 EXAM PARAMETERS: NUMBER OF VIEWS: two views TECHNIQUE: Digital Frontal and Lateral radiographic views of the chest acquired. RADIATION DOSE: NA LIMITATIONS: none FINDINGS: LUNGS AND PLEURA: No opacities, masses or pneumothorax. No pleural effusion. MEDIASTINUM AND HILAR STRUCTURES: No masses or contour abnormalities. HEART AND VASCULAR STRUCTURES: Heart normal size. No evidence for failure. BONES: Diffuse thoracic spondylotic change HARDWARE: None in the chest. OTHER: No other significant finding. IMPRESSION: NO SIGNIFICANT RADIOGRAPHIC FINDING IN THE CHEST. TECHNICAL DOCUMENTATION: JOB ID: [id number] [employer]- All Rights Reserved
[2017-01-22] MEDS ORDERED: OXYCODONE-ACETAMINOPHEN 5-325 MG TABLET PO ONE (17:06)
--- NOTE | 2017-01-22 17:39 | RADIOLOGY REPORT (SQ) ---
EXAM DESCRIPTION: HIP LEFT AP/LATERAL COMPLETED DATE/TIME: 01/22/2017 5:29 pm REASON FOR STUDY: Chronic left hip pain COMPARISON: 02/08/2016 NUMBER OF VIEWS: Two views. TECHNIQUE: AP pelvis and additional frog-leg view of the left hip. LIMITATIONS: None. FINDINGS: MINERALIZATION: Normal. LEFT HIP: No fracture or dislocation. No worrisome bone lesions. RIGHT HIP: No fracture or dislocation. No worrisome bone lesions. PUBIS AND ISCHIUM: No fracture. PELVIS: No fracture. SACRUM: No fracture or dislocation. No worrisome bone lesions. LOWER LUMBAR SPINE: No fracture or dislocation. No worrisome bone lesions. No significant disc disea se. SOFT TISSUES: No findings. OTHER: No other significant finding. IMPRESSION: NEGATIVE STUDY OF THE LEFT HIP AND PELVIS. NO RADIOGRAPHIC EVIDENCE OF ACUTE INJURY. TECHNICAL DOCUMENTATION: JOB ID: [id number] [employer]- All Rights Reserved
--- NOTE | 2017-01-22 18:40 | ER Document Report ---
ED General - General Chief Complaint: Swelling Stated Complaint: POSSIBLE ALLERGIC REACTION Time Seen by Provider: 01/22/17 15:36 Notes: Patient is having swelling of her hands and feet for the past few days. She says it was there for a week, about a week ago, and then went away for a week, and now has returned. She had this a couple months ago when was here and admitted to the hospital and given Lasix daily for 4 days and it resolved. She says she has had increasing shortness of breath and some cough. She does have a diuretic mixed in with her blood pressure medication, although she does not recall the name of her medication. Also having pain in the left hip which she has had for a long time and has been attributed to arthritis. She has been unable to walk for the past year and uses a wheelchair. She has some cough with some wheezing and a known history of asthma. Has had CHF in the past. TRAVEL OUTSIDE OF THE [place] IN LAST 30 DAYS: No - Related Data Allergies/Adverse Reactions: Penicillins Allergy (Mild, Verified 01/22/17 15:07) Hives rofecoxib [From Vioxx] Allergy (Mild, Verified 01/22/17 15:07) Hives Sulfa (Sulfonamide Antibiotics) Allergy (Mild, Verified 01/22/17 15:07) Hives Past Medical History - Social History Smoking Status: Never Smoker Frequency of alcohol use: None Drug Abuse: None Family History: Reviewed & Not Pertinent, CAD, DM, Hypertension, Malignancy Patient has suicidal ideation: No Patient has homicidal ideation: No - Past Medical History Cardiac Medical History: Reports: Hx Congestive Heart Failure - Diastolic, Hx Coronary Artery Disease, Hx Heart Attack - 2016, Hx Hypercholesterolemia, Hx Hypertension Pulmonary Medical History: Reports: Hx Asthma - Steroid dependent, Hx Bronchitis , Hx COPD, Hx Pneumonia - > than 5 yrs ago, Hx Sleep Apnea - Suspected, with further testing pending. Neurological Medical History: Reports: Hx Cerebrovascular Accident - Multiple ( last one at least 10 yrs ago) Renal/ Medical History: Reports: Hx Kidney Stones GI Medical History: Reports: Hx Gastritis, Hx Gastroesophageal Reflux Disease, Hx Ulcer - gastric non bleeding. Denies: Hx Cirrhosis, Hx Hepatitis Musculoskeltal Medical History: Reports Hx Arthritis - Rheumatoid, Reports Hx Fibromyalgia, Reports Hx Musculoskeletal Deformity Skin Medical History: Reports Hx Eczema Psychiatric Medical History: Reports: Hx Anxiety, Hx Depression - Denies suicidal or homicidal ideation Infectious Medical History: Denies: Hx Hepatitis Past Surgical History: Reports: Hx Adenoidectomy, Hx Cardiac Catheterization - no stents, Hx Gynecologic Surgery - uterine fibroid removal, Hx Tonsillectomy, Hx Tubal Ligation - Immunizations Hx Diphtheria, Pertussis, Tetanus Vaccination: No Hx Pneumococcal Vaccination: 02/16/12 Review of Systems - Review of Systems Notes: REVIEW OF SYSTEMS: CONSTITUTIONAL : Denies fever. EENT: Denies eye, ear, nose or mouth or throat pain or other symptoms. CARDIOVASCULAR: Denies chest pain. RESPIRATORY: Has some cough and worsening shortness of breath. GASTROINTESTINAL: Denies abdominal pain or nausea, vomiting, or diarrhea. GENITOURINARY: Denies difficulty or painful urinating, urinary frequency, blood in urine. MUSCULOSKELETAL: Denies back or neck pain. Denies joint pain or swelling. Complains of swelling of both hands. SKIN: Denies rash or skin lesions. NEUROLOGICAL: Denies LOC or altered mental status. Denies headache. Denies sensory loss or motor deficits. ALL OTHER SYSTEMS REVIEWED AND NEGATIVE. Physical Exam - Vital signs Vitals: Temp Pulse Resp BP Pulse Ox 98.3 F 85 20 148/72 H 97 01/22/17 15:13 01/22/17 15:13 01/22/17 15:01/22/17 15:01/22/17 15:13 Interpretation: Normal - Notes Notes: PHYSICAL EXAMINATION: GENERAL: Well-appearing, in no acute distress. HEAD: Atraumatic, normocephalic. NECK: Normal range of motion, supple. LUNGS: Breath sounds clear and equal bilaterally. HEART: Regular rate and rhythm without murmurs. ABDOMEN: Soft, nontender. No guarding or rebound. BACK: No tenderness throughout entire back. EXTREMITIES: Pain with any movement of left hip, but normal range of motion of all other joints without pain. Both hands may be very slightly puffy. NEUROLOGICAL: Normal speech, normal gait. Normal sensory, motor, and reflex exams. Awake, alert, and oriented x3. Cranial nerves normal. PSYCH: Normal mood, normal affect. SKIN: Warm, dry, no rashes. Course - Vital Signs Vital signs: Temp Pulse Resp BP Pulse Ox 98.3 F 85 20 148/72 H 97 01/22/17 15:13 01/22/17 15:13 01/22/17 15:13 01/22/17 15:13 01/22/17 15:13 - Laboratory Result Diagrams: 01/22/17 15:55 01/22/17 15:55 Laboratory results interpreted by me: 01/22/17 01/22/17 01/22/17 15:55 15:55 15:55 RBC 3.43 L Hgb 11.0 L Hct 33.8 L MCV 98 H RDW 14.6 H Seg Neutrophils % 81.4 H Lymphocytes % 11.2 L Absolute Neutrophils 8.6 H Chloride 108 H BUN 47 H Creatinine 1.90 H Est GFR ( Amer) 31 L Est GFR (Non-Af Amer) 26 L Alkaline Phosphatase 249 H Total Protein 6.0 L Albumin 3.3 L Urine Glucose (UA) 50 H Urine Blood SMALL H - Diagnostic Test Radiology results interpreted by me: 01/23/17 01:14 Chest x-ray without acute findings. Hip xray without abnormal findings. Discharge - Discharge Clinical Impression: Arthritis of left hip, Swelling Condition: Stable Disposition: HOME, SELF-CARE Additional Instructions: Arthritis left hip Your symptoms are due to arthritis. Arthritis is an inflammation of the joints. There are many types -- osteoarthritis (due to "wear and tear"), auto- immmune arthritis (such as rheumatoid, lupus, Hung's, and others), and crystal -induced arthritis (such as gout and pseudogout). The physician's examination, combined with laboratory tests, will determine the cause of your arthritis. All types of arthritis are treated with antiinflammatory medications. Other medication may be required for special types of arthritis, or if your problem does not respond to the antiinflammatory medicine. Local warmth may be helpful. Move the involved joints through the full range of motion daily. Mild exercise is usually still possible for most persons with arthritis (ask your physician). Swimming provides good exercise without damaging the joints. Contact the physician if you are worsening in any way. Oral Narcotic Medication You have been given a prescription for pain control. This medication is a narcotic. It's best taken with food, as nausea can result if taken on an empty stomach. Don't operate machinery or drive within six hours of taking this medication. Do not combine this medicine with alcohol, or with any medication which can cause sedation (such as cold tablets or sleeping pills) unless you get permission from the physician. Narcotics tend to cause constipation. If possible, drink plenty of fluids and eat a diet high in fiber and fruits. Edema, Peripheral You have swelling in your legs. This is called peripheral edema. It can be caused by "leaky capillaries," inflammation, disease of the leg veins, or excess salt and water in your body. Edema may be a sign of heart, kidney, or liver disease. A medical evaluation can determine if there is a serious underlying cause for your edema. Avoid prolonged standing. If you must sit for a long time, occasionally get up and walk around or elevate your legs. Support stockings can be helpful in limiting swelling. Often diuretic or water pills are used to remove excess salt and water from your body. Call the doctor or return if you develop increased swelling, pain, or redness, shortness of breath, chest pain, or any other significant change. Lasix Furosemide (Lasix) has been prescribed to eliminate excess fluid from your system. Lasix forces the kidney to put out extra salt and water in the urine. It is used for fluid retention due to heart or lung disease -- improving the symptoms of swelling, shortness of breath, and fatigue. Lasix may cause potassium loss (hypokalemia), so a potassium supplement is usually prescribed. If no potassium has been recommended for you, be sure to have your serum potassium checked after a short time on the medication. Contact your doctor if you have severe weakness or palpitations. Weigh yourself daily. Changes in your weight show how much salt and water your body is eliminating (or retaining). Generally, you should not lose more than about two pounds daily. Once you have lost the desired amount of extra fluid, continued weighing is recommended to monitor your condition. Take the Lasix pills only when you are experiencing swelling. In other words, take them only as needed. FOLLOW-UP CARE: If you have been referred to a physician for follow-up care, call the physician s office for an appointment as you were instructed or within the next two days. If you experience worsening or a significant change in your symptoms, notify the physician immediately or return to the Emergency Department at any time for re-evaluation. Prescriptions: Furosemide [Lasix 20 mg Tablet] 20 mg PO QAMP PRN #12 tablet PRN Reason: Oxycodone HCl/Acetaminophen [Percocet 5-325 mg Tablet] 1 - 2 tab PO Q4H PRN #15 tablet PRN Reason: Referrals: CASIMIRO WATKINS MD [Primary Care Provider] - Follow up as needed
== END 2017-01-22 18:52 | disposition home or self-care (01) ==
LOC: ER 15:05
DX: M79.89 Other specified soft tissue disorders (principal); R05 Cough; R06.02 Shortness of breath; M25.552 Pain in left hip; M13.852 Other specified arthritis, left hip
CPT/HCPCS: 99285; 36415; 85025; 80053; 81001; 71020; 73502; A9270

== ENCOUNTER 2017-01-28 12:35 | Observation (INO) | payer MEDICARE, OTHER ==
[2017-01-28] MEDS ORDERED: MORPHINE SULFATE 10 MG/ML INJ IV ONE ×3 (12:52→20:35)
--- NOTE | 2017-01-28 12:54 | ER Document Report ---
ED Medical Screen (RME) - General Chief Complaint: Pain All Over Stated Complaint: PAIN ALL OVER,SWELLING Time Seen by Provider: 01/28/17 12:51 Mode of Arrival: Wheelchair Information source: Patient, Relative TRAVEL OUTSIDE OF THE [place] IN LAST 30 DAYS: No - HPI Patient complains to provider of: CP, pain all over, abd swelling Onset: Other - pt was seen in ED here last week for similar c/o but now with CP and "pain all over." - Related Data Allergies/Adverse Reactions: Penicillins Allergy (Mild, Verified 01/28/17 12:39) Hives rofecoxib [From Vioxx] Allergy (Mild, Verified 01/28/17 12:39) Hives Sulfa (Sulfonamide Antibiotics) Allergy (Mild, Verified 01/28/17 12:39) Hives Past Medical History - Past Medical History Cardiac Medical History: Reports: Hx Congestive Heart Failure - Diastolic, Hx Coronary Artery Disease, Hx Heart Attack - 2016, Hx Hypercholesterolemia, Hx Hypertension Denies: Hx DVT, Hx Pulmonary Embolism Pulmonary Medical History: Reports: Hx Asthma - Steroid dependent, Hx Bronchitis , Hx COPD, Hx Pneumonia - > than 5 yrs ago, Hx Sleep Apnea - Suspected, with further testing pending. Neurological Medical History: Reports: Hx Cerebrovascular Accident - Multiple ( last one at least 10 yrs ago). Denies: Hx Seizures Endocrine Medical History: Denies: Hx Diabetes Mellitus Type 1, Hx Diabetes Mellitus Type 2, Hx Hyperthyroidism, Hx Hypothyroidism Renal/ Medical History: Reports: Hx Kidney Stones. Denies: Hx Peritoneal Dialysis GI Medical History: Reports: Hx Gastritis, Hx Gastroesophageal Reflux Disease, Hx Ulcer - gastric non bleeding. Denies: Hx Cirrhosis, Hx Hepatitis Musculoskeltal Medical History: Reports Hx Arthritis - Rheumatoid, Reports Hx Fibromyalgia, Reports Hx Musculoskeletal Deformity Skin Medical History: Reports Hx Eczema Psychiatric Medical History: Reports: Hx Anxiety, Hx Depression - Denies suicidal or homicidal ideation Infectious Medical History: Denies: Hx Hepatitis Past Surgical History: Reports: Hx Adenoidectomy, Hx Cardiac Catheterization - no stents, Hx Gynecologic Surgery - uterine fibroid removal, Hx Tonsillectomy, Hx Tubal Ligation - Immunizations Hx Diphtheria, Pertussis, Tetanus Vaccination: No Physical Exam - Vital signs Vitals: Temp Pulse Resp BP Pulse Ox 98.6 F 101 H 22 H 136/76 H 96 01/28/17 12:39 01/28/17 12:39 01/28/17 12:39 01/28/17 12:39 01/28/17 12:39 Course - Vital Signs Vital signs: Temp Pulse Resp BP Pulse Ox 98.6 F 101 H 22 H 136/76 H 96 01/28/17 12:39 01/28/17 12:39 01/28/17 12:39 01/28/17 12:39 01/28/17 12:39
[2017-01-28 13:44] LABS: ABSOLUTE BASOPHILS # (AUTO) 0.1 10^3/uL (0.0-0.2); ABSOLUTE LYMPHOCYTES (AUTO) 1.5 10^3/uL (0.5-4.7); ABSOLUTE NEUT (AUTO) 11.2 10^3/uL (1.7-8.2); BASOPHILS % (AUTO) 0.4 % (0-2); EOSINOPHILS % (AUTO) 0.1 % (0-6); HEMATOCRIT 34.1 % (36.0-47.0); HEMOGLOBIN 11.5 g/dL (12.0-15.5); HGB HCT DIFFERENCE 0.4; LYMPHOCYTES % (AUTO) 10.8 % (13-45); MEAN CORPUSCULAR HEMOGLOBIN 32.3 pg (27.0-33.4); MEAN CORPUSCULAR HGB CONC 33.8 g/dL (32.0-36.0); MEAN CORPUSCULAR VOLUME 96 fl (80-97); MONOCYTES % (AUTO) 7.4 % (3-13); RED BLOOD COUNT 3.55 10^6/uL (3.72-5.28); RED CELL DISTRIBUTION WIDTH 14.4 % (11.5-14.0); SEGMENTED NEUTROPHILS % (AUTO) 81.3 % (42-78); WHITE BLOOD COUNT 13.8 10^3/uL (4.0-10.5)
[2017-01-28 14:01] LABS: ALANINE AMINOTRANSFERASE 19 U/L (9-52); ALBUMIN 3.9 g/dL (3.5-5.0); ALKALINE PHOSPHATASE 144 U/L (38-126); ANION GAP 11 (5-19); ASPARTATE AMINO TRANSFERASE 31 U/L (14-36); BILIRUBIN,DIRECT 0.4 mg/dL (0.0-0.4); BILIRUBIN,TOTAL 0.9 mg/dL (0.2-1.3); BLOOD UREA NITROGEN 40 mg/dL (7-20); CALCIUM 10.2 mg/dL (8.4-10.2); CARBON DIOXIDE 30 mmol/L (22-30); CHLORIDE 102 mmol/L (98-107); CREATINE KINASE 159 U/L (30-135); CREATININE RESULT 1.45 mg/dL (0.52-1.25); GLUCOSE 139 mg/dL (75-110); POTASSIUM 3.6 mmol/L (3.6-5.0); SODIUM 143.1 mmol/L (137-145); TOTAL PROTEIN 7.1 g/dL (6.3-8.2)
[2017-01-28 14:12] LABS: CREATINE KINASE MB 0.81 ng/mL (<4.55); TROPONIN I < 0.012 ng/mL
--- NOTE | 2017-01-28 14:51 | RADIOLOGY REPORT (SQ) ---
EXAM DESCRIPTION: CT ABD/PELVIS WITH IV ONLY COMPLETED DATE/TIME: 01/28/2017 2:40 pm REASON FOR STUDY: cp, Right abdomen pain COMPARISON: 11/26/2016. TECHNIQUE: CT scan of the abdomen and pelvis performed using helical scanning technique with dynamic intravenous contrast injection. No oral contrast. Images reviewed with lung, soft tissue, and bone windows. Reconstructed coronal and sagittal MPR images reviewed. Delayed images for evaluation of the urinary system also acquired. All images stored on PACS. All CT scanners at this facility use dose modulation, iterative reconstruction, and/or weight based d osing when appropriate to reduce radiation dose to as low as reasonably achievable (ALARA). [facility]: Dose Right [facility]: CareDose [facility]: Dose Right [facility]: Teradose 4D [facility]: [email or web address] CONTRAST TYPE AND DOSE: contrast/concentration: Isovue 370.00 mg/ml; Total Contrast Delivered: 64.0 ml; Total Saline Delivered: 65.0 ml RENAL FUNCTION: Creatinine 1.5 RADIATION DOSE: Up-to-date CT equipment and radiation dose reduction techniques were employed. CTDIv ol: 11.6 - 16.3 mGy. DLP: 1334 mGy-cm.. LIMITATIONS: Mild motion artifact. FINDINGS: LOWER CHEST: Cardiac enlargement. Motion. LIVER: Normal size. No masses. No dilated ducts. SPLEEN: Normal size. No focal lesions. PANCREAS: Pancreatic cysts, as before. GALLBLADDER: Gallbladder is distended. Common duct dilated, 1.3 cm. No calcified stone evident. ADRENAL GLANDS: No significant masses or asymmetry. RIGHT KIDNEY AND URETER: Numerous renal cysts. No evidence of obstruction. Mild nonobstructing neph rolithiasis. LEFT KIDNEY AND URETER: Numerous renal cysts. No large stones. No solid mass or evidence of obstruc tion. AORTA AND VESSELS: Atherosclerotic without aneurysm or dissection. Generally patent major arterial s tructures. No venous clot. RETROPERITONEUM: No retroperitoneal adenopathy, hemorrhage or masses. BOWEL AND PERITONEAL CAVITY: Sigmoid diverticulosis. No active inflammatory changes. No small bowel obstruction evident. APPENDIX: Normal. PELVIS: There is a stone in the dependent left aspect of the bladder measuring just under 5 mm. This is chronic. ABDOMINAL WALL: Previous ventral hernia repair. No recurrent hernia or mass. BONES: No significant or acute findings. OTHER: No other significant finding. IMPRESSION: 1. Gallbladder distention. Mild common duct distention. Ultrasound if clinically teodora anted. 2. Bladder stone. Nonobstructive right nephrolithiasis. 3. Sigmoid diverticulosis but no evidence of active diverticulitis. TECHNICAL DOCUMENTATION: JOB ID: [id number] Quality ID # [id number]: Final reports with documentation of one or more dose reduction techniques (e.g., Au tomated exposure control, adjustment of the mA and/or kV according to patient size, use of iterative reconstruction technique) 2010 [employer] All Rights Reserved
--- NOTE | 2017-01-28 14:56 | RADIOLOGY REPORT (SQ) ---
EXAM DESCRIPTION: CHEST PA/LAT COMPLETED DATE/TIME: 01/28/2017 2:42 pm REASON FOR STUDY: cp COMPARISON: CT angio chest 04/20/2016 Chest films 11/28/2016, 01/22/2017 EXAM PARAMETERS: NUMBER OF VIEWS: two views TECHNIQUE: Digital Frontal and Lateral radiographic views of the chest acquired. RADIATION DOSE: NA LIMITATIONS: none FINDINGS: LUNGS AND PLEURA: No opacities, masses or pneumothorax. No pleural effusion. MEDIASTINUM AND HILAR STRUCTURES: No masses or contour abnormalities. HEART AND VASCULAR STRUCTURES: Stable mild cardiomegaly BONES: No acute findings. HARDWARE: None in the chest OTHER: No other significant finding. IMPRESSION: Mild cardiomegaly. No acute findings TECHNICAL DOCUMENTATION: JOB ID: [id number] [employer]- All Rights Reserved
[2017-01-28 15:37] LABS: APPEARANCE,URINE CLEAR; BILIRUBIN,URINE NEGATIVE (NEGATIVE); GLUCOSE, URINE NEGATIVE (NEGATIVE); KETONES,URINE NEGATIVE (NEGATIVE); LEUKOCYTE ESTERASE,URINE NEGATIVE (NEGATIVE); NITRITE,URINE NEGATIVE (NEGATIVE); PROTEIN,URINE NEGATIVE (NEGATIVE); URINE SPECIFIC GRAVITY 1.017; UROBILINOGEN,URINE NEGATIVE mg/dL (<2.0)
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
--- NOTE | 2017-01-28 18:07 | RADIOLOGY REPORT (SQ) ---
EXAM DESCRIPTION: U/S ABDOMEN LIMITED W/O DOP COMPLETED DATE/TIME: 01/28/2017 5:46 pm REASON FOR STUDY: Abn CT, Abd pain COMPARISON: CT and pelvis done earlier the same day. TECHNIQUE: Dynamic and static grayscale images acquired of the abdomen and recorded on PACS. Additio kwasi selected color Doppler and spectral images recorded. LIMITATIONS: None. FINDINGS: PANCREAS: Not visualized due to overlying bowel gas. LIVER: No masses. Echotexture normal. LIVER VASCULATURE: Normal directional flow of the main portal vein and hepatic veins. GALLBLADDER: There is gallbladder sludge. No wall thickening. ULTRASOUND-DETECTED IBANEZ'S SIGN: Positive. INTRAHEPATIC DUCTS AND COMMON DUCT: The common bile duct is dilated measuring 10 mm. INFERIOR VENA CAVA: Not visualized. AORTA: No aneurysm. RIGHT KIDNEY: Normal size and echogenicity. There are multiple cysts. The largest measures 5.8 x 5 .8 x 6.1 cm. PERITONEAL AND RIGHT PLEURAL SPACE: No ascites or effusions. OTHER: No other significant findings. IMPRESSION: Positive sonographic Ibanez sign. There is a small amount of gallbladder sludge. No wa ll thickening or pericholecystic edema. The common bile duct is dilated measured up to [address] TECHNICAL DOCUMENTATION: JOB ID: [id number] [employer]- All Rights Reserved
[2017-01-28] MEDS ORDERED: METHYLPREDNISOLONE INJ 125 MG/2 ML SDV IV ONE (18:20)
[2017-01-28] MEDS ORDERED: TRAMADOL HCL 50 MG TABLET PO PRN (21:09)
[2017-01-28] MEDS ORDERED: IPRATROPIUM/ALBUTEROL 0.5-2.5 MG/3 ML AMPUL NEB PRN (21:10)
[2017-01-28] MEDS ORDERED: MAG HYDROX/AL HYDROX/SIMETH SUSP 30 ML UDCUP PO PRN (21:10)
[2017-01-28] MEDS ORDERED: ACETAMINOPHEN 325 MG TABLET PO PRN (21:10)
[2017-01-28] MEDS ORDERED: METOPROLOL TARTRATE 50 MG TABLET PO ONE (21:23)
[2017-01-28] MEDS ORDERED: GABAPENTIN 300 MG CAPSULE PO ONE (21:24)
[2017-01-28 22:21] LABS: CREATINE KINASE MB 0.82 ng/mL (<4.55); TROPONIN I 0.014 ng/mL
--- NOTE | 2017-01-28 22:49 | EKG REPORT ---
SEVERITY:- ABNORMAL ECG - SINUS RHYTHM PROBABLE LEFT ATRIAL ABNORMALITY LEFT VENTRICULAR HYPERTROPHY : Confirmed by: Mariann Reyes 28-Jan-2017 22:49:15
[2017-01-28] MEDS ORDERED: CEFTRIAXONE 1 GM/D5W RTU 1 GM/50 ML RTUPB IV SCH (23:00)
[2017-01-28] MEDS ORDERED: CYCLOBENZAPRINE HCL 10 MG TABLET PO PRN (23:06)
[2017-01-28] MEDS ORDERED: CEFTRIAXONE 1 GM/D5W RTU 1 GM/50 ML RTUPB IV ONE (23:30)
[2017-01-28] MEDS: GABAPENTIN 300 MG CAPSULE PO SCH (23:41)
[2017-01-29] MEDS: IPRATROPIUM/ALBUTEROL 0.5-2.5 MG/3 ML AMPUL NEB SCH ×4 (00:02→20:26)
[2017-01-29] MEDS: HEPARIN SOD (PORCINE) 5,000 UNIT/ML 1 ML SYRINGE SUBCUT SCH ×4 (00:47→22:41)
[2017-01-29] MEDS: METOPROLOL TARTRATE 50 MG TABLET PO SCH ×3 (00:47→22:41)
[2017-01-29] MEDS: GABAPENTIN 300 MG CAPSULE PO SCH ×3 (00:51→22:41)
[2017-01-29] MEDS: METHYLPREDNISOLONE INJ 125 MG/2 ML SDV IV SCH ×4 (00:51→22:41)
--- NOTE | 2017-01-29 03:21 | PDOC H&P ---
History of Present Illness Admission Date/PCP: 01/28/17 21:10 Patient complains of: Right shoulder and hip pain History of Present Illness: CAMMY UNDERWOOD is a 72 year old female with past medical history of COPD, asthma, coronary artery disease, hypertension, dyslipidemia, steroid-dependent rheumatoid arthritis and fibromyalgia. She been her usual state of health until approximately 48 hours prior to presentation with abrupt onset of right hip followed by right shoulder pain in addition to chest pain. Pain is nonradiating not associated with palpitations shortness of breath nausea or vomiting. In the emergency room she has a nonspecific workup with leukocytosis and tachycardia. CT abdomen pelvis is notable for bilateral perinephritic stranding and large renal cysts bilaterally however a normal urinalysis. She started on stress dose steroids and morphine and referred to the hospitalist for admission. Patient is an extraordinarily poor historian and unable to provide meaningful history. The pain is clearly exacerbated by movement. Past Medical History Cardiac Medical History: Reports: Congestive Heart Failure - Diastolic, Coronary Artery Disease, Myocardial Infarction - 2016, Hyperlipidema, Hypertension Denies: DVT, Pulmonary Embolism Pulmonary Medical History: Reports: Asthma - Steroid dependent, Bronchitis, Chronic Obstructive Pulmonary Disease (COPD), Pneumonia - > than 5 yrs ago, Sleep Apnea - Suspected, with further testing pending. Neurological Medical History: Denies: Seizures Endocrine Medical History: Denies: Diabetes Mellitus Type 1, Diabetes Mellitus Type 2, Hyperthyroidism, Hypothyroidism GI Medical History: Reports: Gastroesophageal Reflux Disease Denies: Cirrhosis, Hepatitis Musculoskeltal Medical History: Reports: Arthritis - Rheumatoid, Fibromyalgia, Other - Rheumatoid arthritis Skin Medical History: Reports: Eczema Psychiatric Medical History: Reports: Depression - occ anxiety Hematology: Denies: Anemia Past Surgical History Past Surgical History: Reports: Adenoidectomy, Cardiac Catheterization - no stents, Tonsillectomy, Tubal Ligation Social History Information Source: Relative, Emergency Med Personnel, [facility] Records Lives with: Family Smoking Status: Never Smoker Frequency of Alcohol Use: None Hx Recreational Drug Use: No Drugs: None Hx Prescription Drug Abuse: No - Advance Directive Resuscitation Status: Full Code Family History Family History: CAD, DM, Hypertension, Malignancy Parental Family History Reviewed: Yes Children Family History Reviewed: Yes Sibling(s) Family History Reviewed.: Yes Medication/Allergy Home Medications: Amlodipine Besylate [Norvasc 5 mg Tablet] 5 mg PO DAILY 01/28/17 Atorvastatin Calcium [Lipitor 80 mg Tablet] 80 mg PO QHS 01/28/17 Citalopram Hydrobromide [Celexa 20 mg Tablet] 20 mg PO DAILY 01/28/17 Cyclobenzaprine HCl [Flexeril 10 mg Tablet] 10 mg PO TIDP PRN 01/28/17 Fluticasone/Salmeterol [Advair HFA 230-21 mcg Inhaler] 1 puff IH Q12 01/28/17 Gabapentin [Neurontin 300 mg Capsule] 300 mg PO DAILY 01/28/17 Gabapentin [Neurontin 300 mg Capsule] 600 mg PO QHS 01/28/17 Ipratropium/Albuterol Sulfate [Duoneb 3 ml Ampul] 3 ml NEB RTQIDP PRN 01/28/17 Metoprolol Tartrate [Lopressor 50 mg Tablet] 50 mg PO Q12 01/28/17 Montelukast Sodium [Singulair 10 mg Tablet] 10 mg PO QPM 01/28/17 Olmesartan/Hydrochlorothiazide [Olmesartan-Hctz 40-12.5 mg Tab] 1 tab PO DAILY 01/28/17 Omeprazole 40 mg PO DAILY 01/28/17 Prednisone [Deltasone 10 mg Tablet] 10 mg PO ASDIR PRN 01/28/17 Sertraline HCl [Zoloft] 100 mg PO DAILY 01/28/17 Tiotropium [place] [Spiriva Respimat] 2 puff IH DAILY 01/28/17 Tramadol HCl [Ultram 50 mg Tablet] 50 mg PO Q6HP PRN 01/28/17 Triamterene/Hydrochlorothiazid [Triamterene-Hctz 37.5-25 mg Cp] 1 cap PO DAILY 01/28/17 Allergies/Adverse Reactions: Penicillins Allergy (Mild, Verified 01/28/17 12:39) Hives rofecoxib [From Vioxx] Allergy (Mild, Verified 01/28/17 12:39) Hives Sulfa (Sulfonamide Antibiotics) Allergy (Mild, Verified 01/28/17 12:39) Hives Review of Systems Constitutional: PRESENT: as per HPI, fatigue, night sweats, weakness. ABSENT: fever(s) Eyes: ABSENT: visual disturbances Ears: ABSENT: hearing changes Cardiovascular: PRESENT: as per HPI, chest pain. ABSENT: dyspnea on exertion, edema, orthropnea, palpitations Respiratory: ABSENT: cough, hemoptysis Gastrointestinal: ABSENT: abdominal pain, constipation, diarrhea, hematemesis, hematochezia, nausea, vomiting Genitourinary: ABSENT: dysuria, hematuria Musculoskeletal: PRESENT: as per HPI. ABSENT: joint swelling Integumentary: ABSENT: rash, wounds Neurological: ABSENT: abnormal gait, abnormal speech, confusion, dizziness, focal weakness, syncope Psychiatric: ABSENT: anxiety, depression, homidical ideation, suicidal ideation Endocrine: ABSENT: cold intolerance, heat intolerance, polydipsia, polyuria Hematologic/Lymphatic: ABSENT: easy bleeding, easy bruising Physical Exam Vital Signs: Temp Pulse Resp BP Pulse Ox 98.3 F 102 H 18 172/86 H 93 01/28/17 23:11 01/29/17 00:00 01/29/17 00:00 01/28/17 23:11 01/28/17 23:11 Intake & Output 01/27/17 01/28/17 01/29/17 11:59 11:59 11:59 Weight 60.8 kg General appearance: PRESENT: cooperative, disheveled, severe distress Head exam: PRESENT: atraumatic Eye exam: PRESENT: conjunctiva pink, EOMI, PERRLA. ABSENT: scleral icterus Ear exam: PRESENT: normal external ear exam Mouth exam: PRESENT: moist, tongue midline Neck exam: ABSENT: carotid bruit, JVD, lymphadenopathy, thyromegaly Respiratory exam: PRESENT: crackles. ABSENT: rales, rhonchi, wheezes Cardiovascular exam: PRESENT: RRR. ABSENT: diastolic murmur, rubs, systolic murmur Pulses: PRESENT: normal dorsalis pedis pul Vascular exam: PRESENT: normal capillary refill GI/Abdominal exam: PRESENT: normal bowel sounds, soft. ABSENT: distended, guarding, mass, organolmegaly, rebound, tenderness Rectal exam: PRESENT: deferred Extremities exam: PRESENT: calf tenderness, tenderness - Limited range of motion to the right upper and lower extremity, +1 edema. ABSENT: joint swelling , pedal edema Neurological exam: PRESENT: alert, awake, oriented to person, oriented to place , oriented to time, oriented to situation, CN II-XII grossly intact. ABSENT: motor sensory deficit Psychiatric exam: PRESENT: appropriate affect, normal mood. ABSENT: homicidal ideation, suicidal ideation Skin exam: PRESENT: dry, intact, warm. ABSENT: cyanosis, rash Results Laboratory Results: 01/28/17 01/28/17 21:40 21:40 Creatine Kinase 181 H CK-MB (CK-2) 0.82 Troponin I 0.014 Impressions: Chest X-Ray 01/28/17 12:51 IMPRESSION: Mild cardiomegaly. No acute findings Abdomen/Pelvis CT 01/28/17 12:52 IMPRESSION: 1. Gallbladder distention. Mild common duct distention. Ultrasound if clinically warranted. 2. Bladder stone. Nonobstructive right nephrolithiasis. 3. Sigmoid diverticulosis but no evidence of active diverticulitis. Abdomen Ultrasound 01/28/17 15:40 IMPRESSION: Positive sonographic Ibanez sign. There is a small amount of gallbladder sludge. No wall thickening or pericholecystic edema. The common bile duct is dilated measured up to 1 cm in diameter. Assessment & Plan - Diagnosis (1) Intractable pain Is this a current diagnosis for this admission?: Yes Plan: Unclear if rheumatological, orthopedic or infectious source, ESR results 91. 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 Symptomatic management consider orthopedic consult for arthrocentesis. (3) Rheumatoid arthritis flare Is this a current diagnosis for this admission?: Yes Plan: Empiric stress dose steroids (4) Infected kidney cyst Is this a current diagnosis for this admission?: Yes Plan: Remarkable bilateral large renal cysts with perinephric stranding may represent early pyelonephrosis or infected cyst. Follow-up blood and urine culture empiric Rocephin ordered (5) Chest pain Is this a current diagnosis for this admission?: Yes Plan: Serial cardiac enzymes given known coronary artery disease. without pleuritic nature or rub on auscultation. Though if persistent consider EKG or 2D echo for pericarditis. - Time Time Spent: 50 to 70 Minutes - Inpatient Certification Medical Necessity: Significant Comorbidiites Make Outpatient Treatment Too Risky , Need Close Monitoring Due to Risk of Patient Decompensation
[2017-01-29 04:39] LABS: ABSOLUTE LYMPHOCYTES (AUTO) 0.6 10^3/uL (0.5-4.7); ABSOLUTE MONOCYTES (AUTO) 0.1 10^3/uL (0.1-1.4); ABSOLUTE NEUT (AUTO) 11.4 10^3/uL (1.7-8.2); BASOPHILS % (AUTO) 0.1 % (0-2); HEMATOCRIT 32.6 % (36.0-47.0); HEMOGLOBIN 11.2 g/dL (12.0-15.5); LYMPHOCYTES % (AUTO) 5.2 % (13-45); MEAN CORPUSCULAR HEMOGLOBIN 32.7 pg (27.0-33.4); MEAN CORPUSCULAR HGB CONC 34.4 g/dL (32.0-36.0); MEAN CORPUSCULAR VOLUME 95 fl (80-97); MONOCYTES % (AUTO) 0.5 % (3-13); RED BLOOD COUNT 3.42 10^6/uL (3.72-5.28); RED CELL DISTRIBUTION WIDTH 14.5 % (11.5-14.0); SEGMENTED NEUTROPHILS % (AUTO) 94.2 % (42-78); WHITE BLOOD COUNT 12.1 10^3/uL (4.0-10.5)
[2017-01-29 04:56] LABS: ALANINE AMINOTRANSFERASE 19 U/L (9-52); ALBUMIN 3.2 g/dL (3.5-5.0); ALKALINE PHOSPHATASE 94 U/L (38-126); ANION GAP 13 (5-19); ASPARTATE AMINO TRANSFERASE 21 U/L (14-36); BILIRUBIN,DIRECT 0.5 mg/dL (0.0-0.4); BILIRUBIN,TOTAL 0.7 mg/dL (0.2-1.3); BLOOD UREA NITROGEN 38 mg/dL (7-20); CALCIUM 9.7 mg/dL (8.4-10.2); CARBON DIOXIDE 29 mmol/L (22-30); CHLORIDE 100 mmol/L (98-107); CREATINE KINASE 151 U/L (30-135); CREATININE RESULT 1.56 mg/dL (0.52-1.25); GLUCOSE 213 mg/dL (75-110); POTASSIUM 3.9 mmol/L (3.6-5.0); SODIUM 141.6 mmol/L (137-145); TOTAL PROTEIN 5.9 g/dL (6.3-8.2)
[2017-01-29 05:04] LABS: CREATINE KINASE MB 1.06 ng/mL (<4.55); TROPONIN I 0.025 ng/mL
[2017-01-29] MEDS ORDERED: IPRATROPIUM/ALBUTEROL 0.5-2.5 MG/3 ML AMPUL NEB PRN (07:23)
[2017-01-29] MEDS ORDERED: TRAMADOL HCL 50 MG TABLET PO PRN (07:23)
[2017-01-29] MEDS ORDERED: PHARMACY COMMUNICATION ORDER MC NR (07:30)
[2017-01-29] MEDS ORDERED: DEXTROSE 50%-WATER 25 GM/50 ML DISP.SYRIN IV PRN ×2 (08:11)
[2017-01-29] MEDS ORDERED: GLUCAGON,HUMAN RECOMB 1 MG INJ SUBCUT PRN (08:11)
[2017-01-29] MEDS ORDERED: DEXTROSE 40% GEL 15 GM TUBE PO PRN ×2 (08:11)
[2017-01-29] MEDS ORDERED: NORMAL SALINE 1000 ML 1,000 ML IV PRN (08:50)
[2017-01-29 08:51] LABS: MAGNESIUM 1.6 mg/dL (1.6-2.3)
[2017-01-29] MEDS ORDERED: CARBOXYMETHYLCELLULOSE SOD 0.5% 0.4 ML DROPERETTE OU PRN (09:23)
[2017-01-29] MEDS ORDERED: ALBUTEROL SULFATE HFA (90 MCG/PUFF) 200 PUFF/8.5 GM MDI IH PRN (09:25)
[2017-01-29] MEDS: METRONIDAZOLE 500 MG/NS RTU 100 ML IV SCH ×3 (09:41→22:22)
[2017-01-29] MEDS: AMLODIPINE BESYLATE 5 MG TABLET PO SCH (09:46)
[2017-01-29] MEDS: DOCUSATE SODIUM 100 MG CAPSULE PO SCH ×2 (09:46→17:12)
[2017-01-29] MEDS: CITALOPRAM HYDROBROMIDE 20 MG TABLET PO SCH (09:47)
[2017-01-29] MEDS: SERTRALINE HCL 50 MG TABLET PO SCH (09:48)
[2017-01-29] MEDS ORDERED: PREDNISONE 10 MG TABLET PO SCH (10:00)
[2017-01-29] MEDS ORDERED: ASPIRIN 81 MG TABLET, ENT COATED PO SCH (10:00)
[2017-01-29] MEDS ORDERED: FLUTICASONE IH SCH (10:00)
[2017-01-29] MEDS ORDERED: LANSOPRAZOLE 30 MG TAB.RAP.DR PO SCH (10:00)
[2017-01-29] MEDS ORDERED: SALMETEROL IH SCH (10:00)
[2017-01-29] MEDS ORDERED: GABAPENTIN 300 MG CAPSULE PO SCH (10:00)
[2017-01-29] MEDS ORDERED: (PENDING PHARMACY ID) (Tiotropium Bromide [Spiriva Respimat] 2 PUFF) IH SCH (10:00)
[2017-01-29] MEDS ORDERED: ESCITALOPRAM OXALATE 10 MG TABLET PO SCH (10:00)
[2017-01-29] MEDS ORDERED: LANSOPRAZOLE 15 MG TAB.RAP.DR PO ONE ×2 (10:30→16:00)
[2017-01-29] MEDS ORDERED: LORAZEPAM INJ 2 MG/1 ML VIAL IV ONE (10:30)
[2017-01-29] MEDS ORDERED: MAGNESIUM SULFATE/D5W 1 GM/100 ML RTUPB IV SCH (10:30)
[2017-01-29 10:50] LABS: CREATINE KINASE MB 1.14 ng/mL (<4.55); TROPONIN I 0.021 ng/mL
--- NOTE | 2017-01-29 11:02 | RADIOLOGY REPORT (SQ) ---
EXAM DESCRIPTION: HIP LEFT AP/LATERAL COMPLETED DATE/TIME: 01/29/2017 10:51 am REASON FOR STUDY: left hip pain E03.9 HYPOTHYROIDISM, UNSPECIFIED COMPARISON: None. NUMBER OF VIEWS: Two views. TECHNIQUE: AP pelvis and additional frog-leg view of the left hip. LIMITATIONS: None. FINDINGS: MINERALIZATION: Normal. LEFT HIP: There is a lateral stress fracture of the left femur at the level of the inferior aspect of the lesser trochanter. RIGHT HIP: No fracture or dislocation. No worrisome bone lesions. PUBIS AND ISCHIUM: No fracture. PELVIS: No fracture. SACRUM: No fracture or dislocation. No worrisome bone lesions. LOWER LUMBAR SPINE: No fracture or dislocation. No worrisome bone lesions. No significant disc disea se. SOFT TISSUES: No findings. OTHER: No other significant finding. IMPRESSION: Stress fracture of proximal left femur. TECHNICAL DOCUMENTATION: JOB ID: [id number] [employer] [facility] [employer]- All Rights Reserved
[2017-01-29] MEDS ORDERED: POLYVINYL ALCOHOL 1.4% OPH SOLN 15 ML OU PRN (12:32)
[2017-01-29] MEDS ORDERED: ACETAMINOPHEN 325 MG TABLET PO PRN (13:00)
[2017-01-29] MEDS ORDERED: MAG HYDROX/AL HYDROX/SIMETH SUSP 30 ML UDCUP PO PRN (13:00)
[2017-01-29] MEDS: CEFTRIAXONE 1 GM/D5W RTU 1 GM/50 ML RTUPB IV SCH (13:24)
[2017-01-29] MEDS: LIDOCAINE 5% (700 MG) TRANSDERMAL ADH..PATCH TP SCH (13:26)
[2017-01-29] MEDS: LORATADINE 10 MG TABLET PO SCH (13:27)
[2017-01-29] MEDS: FLUTICASONE NASAL SPRAY 50 MCG/SPRY 120 SPRAY/16 GM NASL SCH ×2 (13:27→22:41)
--- NOTE | 2017-01-29 13:57 | RADIOLOGY REPORT (SQ) ---
EXAM DESCRIPTION: NM HIDA SCAN COMPLETED DATE/TIME: 01/29/2017 1:18 pm REASON FOR STUDY: dilated common bile duct E03.9 HYPOTHYROIDISM, UNSPECIFIED COMPARISON: THE CT ABDOMEN PELVIS 11/26/2016, 01/28/2017 RIGHT UPPER QUADRANT ULTRASOUND 01/28/2017 RADIONUCLIDE AND DOSE: DOSAGE RADIONUCLIDE: 5.4 millicuries Tc99m Mebrofenin, followed by a 1.3 mCi booster dose DOSAGE MORPHINE: Not required. The route of agent administration: Intravenous TECHNIQUE: Serial imaging right upper quadrant up to 60 minutes following injection of radionuclide. Patient imaged AP and Right Lateral. LIMITATIONS: None. FINDINGS: LIVER: Normal visualization without areas of photopenia. INTRA-HEPATIC BILE DUCTS: Temporal visualization normal. COMMON BILE DUCT: Identified by 10 minutes. Duodenum wall activity and small bowel activity is seen by 20 minutes. GALLBLADDER: By 60 minutes, there was very faint accumulation of activity in the gallbladder fossa. Patient was given a booster dose and imaged an additional 60 minutes. By the end of the delayed imag es, very faint gallbladder accumulation is seen. OTHER: No other significant finding. IMPRESSION: No scintigraphic evidence of common bile duct obstruction. Very faint gallbladder activity after booster dose. This is equivocal for cholecystitis. TECHNICAL DOCUMENTATION: JOB ID: [id number] [employer]- All Rights Reserved
[2017-01-29] MEDS: MORPHINE SULFATE 10 MG/ML INJ IV PRN (16:28)
[2017-01-29] MEDS: MONTELUKAST SODIUM 10 MG TABLET PO SCH (17:11)
[2017-01-29] MEDS ORDERED: DEXTROSE 5%-1/2 NORMAL SALINE 1,000 ML IV PRN (19:05)
--- NOTE | 2017-01-29 19:45 | RADIOLOGY REPORT (SQ) ---
EXAM DESCRIPTION: MRI ABDOMEN WITHOUT COMPLETED DATE/TIME: 01/29/2017 6:47 pm REASON FOR STUDY: MRCP E03.9 HYPOTHYROIDISM, UNSPECIFIED COMPARISON: CT abdomen and pelvis dated 01/28/2017, ultrasound dated 01/28/2017 TECHNIQUE: Noncontrast MRCP. Source and MIP images reviewed. LIMITATIONS: Patient motion FINDINGS: GALLBLADDER: The gallbladder is distended. No stones or pericholecystic edema is apprecia bindu. INTRAHEPATIC DUCTS: Nondilated. EXTRAHEPATIC DUCTS: The common bile duct is measured 1 cm. No filling defects are appreciated. Shor t stricture at the distal duct or at the ampulla cannot be excluded. PANCREAS: There are scattered pancreatic cysts. LIVER, SPLEEN, KIDNEYS, ADRENALS: There are numerous bilateral renal cysts. VESSELS: No evidence of aneurysm. Grossly appropriate flow voids in the major vascular structures. LUNG BASES: Grossly clear. OTHER: No other significant finding. IMPRESSION: 1. Dilated gallbladder with the distended common bile duct. No distal stones or strict ure is appreciated. Short stricture in the distal duct or at the ampulla cannot be excluded. 2. Multiple pancreatic as well as renal cysts. TECHNICAL DOCUMENTATION: JOB ID: [id number] [employer]- All Rights Reserved
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
[2017-01-29] MEDS ORDERED: ATORVASTATIN CALCIUM 80 MG TABLET PO SCH (22:00)
[2017-01-29] MEDS ORDERED: CEFTRIAXONE 1 GM/D5W RTU 1 GM/50 ML RTUPB IV SCH (22:00)
[2017-01-29] MEDS ORDERED: PHARMACY COMMUNICATION ORDER MC SCH (22:00)
[2017-01-30] MEDS: MORPHINE SULFATE 10 MG/ML INJ IV PRN ×4 (02:38→19:58)
[2017-01-30] MEDS: METRONIDAZOLE 500 MG/NS RTU 100 ML IV SCH ×3 (02:38→17:14)
[2017-01-30] MEDS ORDERED: LANSOPRAZOLE 15 MG TAB.RAP.DR PO SCH (06:00)
[2017-01-30] MEDS: METHYLPREDNISOLONE INJ 125 MG/2 ML SDV IV SCH ×2 (07:11→13:06)
[2017-01-30] MEDS: HEPARIN SOD (PORCINE) 5,000 UNIT/ML 1 ML SYRINGE SUBCUT SCH ×2 (07:11→13:07)
[2017-01-30] MEDS: IPRATROPIUM/ALBUTEROL 0.5-2.5 MG/3 ML AMPUL NEB SCH ×3 (08:45→19:42)
[2017-01-30] MEDS: FLUTICASONE NASAL SPRAY 50 MCG/SPRY 120 SPRAY/16 GM NASL SCH (09:33)
[2017-01-30] MEDS: DOCUSATE SODIUM 100 MG CAPSULE PO SCH ×2 (09:36→17:15)
[2017-01-30] MEDS: AMLODIPINE BESYLATE 5 MG TABLET PO SCH (09:36)
[2017-01-30] MEDS: LORATADINE 10 MG TABLET PO SCH (09:38)
[2017-01-30] MEDS: CITALOPRAM HYDROBROMIDE 20 MG TABLET PO SCH (09:38)
[2017-01-30] MEDS: SERTRALINE HCL 50 MG TABLET PO SCH (09:38)
[2017-01-30] MEDS: METOPROLOL TARTRATE 50 MG TABLET PO SCH (09:39)
[2017-01-30] MEDS: LIDOCAINE 5% (700 MG) TRANSDERMAL ADH..PATCH TP SCH (09:39)
[2017-01-30] MEDS: CEFTRIAXONE 1 GM/D5W RTU 1 GM/50 ML RTUPB IV SCH (09:48)
[2017-01-30] MEDS ORDERED: GABAPENTIN 300 MG CAPSULE PO SCH (10:00)
[2017-01-30] MEDS ORDERED: TIOTROPIUM BROMIDE DPI 5 CAP/KIT (18 MCG/CAP) IH SCH (10:00)
[2017-01-30] MEDS ORDERED: ASPIRIN 81 MG TABLET, ENT COATED PO SCH (10:00)
[2017-01-30] MEDS ORDERED: METHYLPREDNISOLONE INJ 125 MG/2 ML SDV IV SCH (14:00)
[2017-01-30] MEDS: MONTELUKAST SODIUM 10 MG TABLET PO SCH (17:15)
[2017-01-30 19:43] VITALS: BP 131/70
== END 2017-01-30 20:05 | disposition short-term general hospital (02) ==
LOC: ER 12:35 → EH 21:10 → UNDOADMOB 21:22 → 5 23:11
PROVIDERS: ADMIT Internal Medicine; ATTEND Internal Medicine
DX: M84.351A Stress fracture, right femur, initial encounter for fracture (principal); X58.XXXA Exposure to other specified factors, initial encounter; K81.9 Cholecystitis, unspecified; I25.10 Atherosclerotic heart disease of native coronary artery without angina pectoris; J44.9 Chronic obstructive pulmonary disease, unspecified; I11.0 Hypertensive heart disease with heart failure; I50.30 Unspecified diastolic (congestive) heart failure; M79.7 Fibromyalgia; J45.998 Other asthma; G47.33 Obstructive sleep apnea (adult) (pediatric); N20.0 Calculus of kidney; N28.1 Cyst of kidney, acquired; N21.0 Calculus in bladder; K86.2 Cyst of pancreas; K57.30 Diverticulosis of large intestine without perforation or abscess without bleeding; R07.89 Other chest pain; M25.511 Pain in right shoulder; D72.829 Elevated white blood cell count, unspecified; K21.9 Gastro-esophageal reflux disease without esophagitis; M06.9 Rheumatoid arthritis, unspecified; I25.2 Old myocardial infarction; E78.5 Hyperlipidemia, unspecified; Z79.51 Long term (current) use of inhaled steroids; Z79.52 Long term (current) use of systemic steroids; Z86.73 Personal history of transient ischemic attack (TIA), and cerebral infarction without residual deficits; Z98.51 Tubal ligation status; Z79.899 Other long term (current) drug therapy; Z98.890 Other specified postprocedural states; Z87.11 Personal history of peptic ulcer disease; Z82.49 Family history of ischemic heart disease and other diseases of the circulatory system; Z80.9 Family history of malignant neoplasm, unspecified
CPT/HCPCS: 93005; 96376; 99285; 96374; 96375; 36415 ×2; 87040; 87205; 82553 ×2; 82962 ×2; 82550 ×2; 83690; 83735; 84100; 84443 ×2; 85025 ×2; 85652; 80053 ×2; 81001; 84484 ×2; 83880; 74181; 71020; 73502; 76705; 78226; 74177; 94799; 93010; 94640 ×3; 97110; 97163; G0378 ×4; A9537; A9270 ×26; J3490 ×3; J1644 ×2; J2930 ×3; J2270 ×3; J2060; J3475; J0696 ×2; Q9969; G8978; G8979; J7620

== ENCOUNTER → 2017-05-04 | Outpatient (CLI) | payer MEDICARE, OTHER ==
[2017-05-04 14:49] LABS: ABSOLUTE LYMPHOCYTES (AUTO) 1.3 10^3/uL (0.5-4.7); ABSOLUTE MONOCYTES (AUTO) 0.1 10^3/uL (0.1-1.4); ABSOLUTE NEUT (AUTO) 7.7 10^3/uL (1.7-8.2); BASOPHILS % (AUTO) 0.5 % (0-2); EOSINOPHILS % (AUTO) 0.2 % (0-6); HEMATOCRIT 34.2 % (36.0-47.0); HEMOGLOBIN 11.2 g/dL (12.0-15.5); HGB HCT DIFFERENCE -0.6; MEAN CORPUSCULAR HEMOGLOBIN 32.3 pg (27.0-33.4); MEAN CORPUSCULAR HGB CONC 32.9 g/dL (32.0-36.0); MEAN CORPUSCULAR VOLUME 98 fl (80-97); MONOCYTES % (AUTO) 1.1 % (3-13); RED BLOOD COUNT 3.48 10^6/uL (3.72-5.28); RED CELL DISTRIBUTION WIDTH 16.6 % (11.5-14.0); SEGMENTED NEUTROPHILS % (AUTO) 84.2 % (42-78); WHITE BLOOD COUNT 9.1 10^3/uL (4.0-10.5)
[2017-05-04 15:12] LABS: ANION GAP 16 (5-19); BLOOD UREA NITROGEN 23 mg/dL (7-20); CALCIUM 9.8 mg/dL (8.4-10.2); CARBON DIOXIDE 15 mmol/L (22-30); CHLORIDE 110 mmol/L (98-107); CREATININE RESULT 1.89 mg/dL (0.52-1.25); GLUCOSE 155 mg/dL (75-110); PHOSPHORUS 3.1 mg/dL (2.5-4.5); POTASSIUM 5.4 mmol/L (3.6-5.0); SODIUM 140.5 mmol/L (137-145)
[2017-05-07 11:39] LABS: CREATININE URINE 40.8 mg/dL (Not Estab.); MICROALBUMIN URINE 5.4 ug/mL (Not Estab.)
== END ==
LOC: OD 13:48
PROVIDERS: ATTEND Internal Medicine Nephrology
DX: N18.3 Chronic kidney disease, stage 3 (moderate) (principal); E21.3 Hyperparathyroidism, unspecified
CPT/HCPCS: 36415; 80048; 82040; 82043; 82306; 82570; 83970; 84100; 85025

== ENCOUNTER → 2017-07-02 | Outpatient (CLI) | payer MEDICARE, OTHER ==
[2017-07-02 11:14] LABS: ABSOLUTE EOSINOPHILS # (AUTO) 0.4 10^3/uL (0.0-0.6); ABSOLUTE LYMPHOCYTES (AUTO) 2.4 10^3/uL (0.5-4.7); ABSOLUTE MONOCYTES (AUTO) 0.6 10^3/uL (0.1-1.4); ABSOLUTE NEUT (AUTO) 3.5 10^3/uL (1.7-8.2); BASOPHILS % (AUTO) 0.7 % (0-2); EOSINOPHILS % (AUTO) 5.1 % (0-6); HEMATOCRIT 33.9 % (36.0-47.0); HEMOGLOBIN 11.2 g/dL (12.0-15.5); LYMPHOCYTES % (AUTO) 34.7 % (13-45); MEAN CORPUSCULAR HGB CONC 33.2 g/dL (32.0-36.0); MEAN CORPUSCULAR VOLUME 96 fl (80-97); MONOCYTES % (AUTO) 9.3 % (3-13); PLATELET COUNT 283 10^3/uL (150-450); RED BLOOD COUNT 3.51 10^6/uL (3.72-5.28); RED CELL DISTRIBUTION WIDTH 14.9 % (11.5-14.0); SEGMENTED NEUTROPHILS % (AUTO) 50.2 % (42-78); TOTAL CELLS COUNTED % (AUTO) 100 %; WHITE BLOOD COUNT 6.9 10^3/uL (4.0-10.5)
[2017-07-02 11:33] LABS: ANION GAP 10 (5-19); BLOOD UREA NITROGEN 24 mg/dL (7-20); CALCIUM 9.8 mg/dL (8.4-10.2); CARBON DIOXIDE 24 mmol/L (22-30); CHLORIDE 106 mmol/L (98-107); GLUCOSE 103 mg/dL (75-110); IRON(TIBC) 74.3 ug/dL (37-170); POTASSIUM 3.5 mmol/L (3.6-5.0); SODIUM 139.9 mmol/L (137-145)
== END ==
LOC: OD 10:31
PROVIDERS: ATTEND Internal Medicine Nephrology
DX: I12.9 Hypertensive chronic kidney disease with stage 1 through stage 4 chronic kidney disease, or unspecified chronic kidney disease (principal); N18.3 Chronic kidney disease, stage 3 (moderate); D63.8 Anemia in other chronic diseases classified elsewhere
CPT/HCPCS: 36415; 80048; 82728; 83540; 83550; 85025

== ENCOUNTER → 2017-10-01 | Outpatient (CLI) | payer MEDICARE, OTHER ==
[2017-10-01 10:19] LABS: ABSOLUTE EOSINOPHILS # (AUTO) 0.1 10^3/uL (0.0-0.6); ABSOLUTE MONOCYTES (AUTO) 0.8 10^3/uL (0.1-1.4); ABSOLUTE NEUT (AUTO) 5.7 10^3/uL (1.7-8.2); BASOPHILS % (AUTO) 0.3 % (0-2); EOSINOPHILS % (AUTO) 0.6 % (0-6); HEMATOCRIT 38.4 % (36.0-47.0); LYMPHOCYTES % (AUTO) 31.5 % (13-45); MEAN CORPUSCULAR HEMOGLOBIN 32.9 pg (27.0-33.4); MEAN CORPUSCULAR VOLUME 97 fl (80-97); MONOCYTES % (AUTO) 7.8 % (3-13); PLATELET COUNT 199 10^3/uL (150-450); RED BLOOD COUNT 3.96 10^6/uL (3.72-5.28); RED CELL DISTRIBUTION WIDTH 14.5 % (11.5-14.0); SEGMENTED NEUTROPHILS % (AUTO) 59.8 % (42-78); TOTAL CELLS COUNTED % (AUTO) 100 %; WHITE BLOOD COUNT 9.6 10^3/uL (4.0-10.5)
[2017-10-01 10:43] LABS: ANION GAP 11 (5-19); BLOOD UREA NITROGEN 37 mg/dL (7-20); CALCIUM 9.7 mg/dL (8.4-10.2); CARBON DIOXIDE 28 mmol/L (22-30); CHLORIDE 104 mmol/L (98-107); GLUCOSE 72 mg/dL (75-110); POTASSIUM 3.5 mmol/L (3.6-5.0); SODIUM 142.6 mmol/L (137-145)
== END ==
LOC: OD 09:08
PROVIDERS: ATTEND Internal Medicine Nephrology
DX: N18.3 Chronic kidney disease, stage 3 (moderate) (principal); D63.8 Anemia in other chronic diseases classified elsewhere
CPT/HCPCS: 36415; 80048; 85025

== ENCOUNTER → 2018-02-08 | Outpatient (CLI) | payer MEDICARE, OTHER ==
[2018-02-08 09:17] LABS: ABSOLUTE EOSINOPHILS # (AUTO) 0.2 10^3/uL (0.0-0.6); ABSOLUTE LYMPHOCYTES (AUTO) 2.7 10^3/uL (0.5-4.7); ABSOLUTE MONOCYTES (AUTO) 0.5 10^3/uL (0.1-1.4); ABSOLUTE NEUT (AUTO) 3.4 10^3/uL (1.7-8.2); BASOPHILS % (AUTO) 0.6 % (0-2); EOSINOPHILS % (AUTO) 2.5 % (0-6); HEMATOCRIT 41.4 % (36.0-47.0); HEMOGLOBIN 14.4 g/dL (12.0-15.5); LYMPHOCYTES % (AUTO) 38.9 % (13-45); MEAN CORPUSCULAR HEMOGLOBIN 33.4 pg (27.0-33.4); MEAN CORPUSCULAR HGB CONC 34.7 g/dL (32.0-36.0); MEAN CORPUSCULAR VOLUME 96 fl (80-97); MONOCYTES % (AUTO) 7.9 % (3-13); PLATELET COUNT 238 10^3/uL (150-450); RED BLOOD COUNT 4.31 10^6/uL (3.72-5.28); RED CELL DISTRIBUTION WIDTH 12.9 % (11.5-14.0); SEGMENTED NEUTROPHILS % (AUTO) 50.1 % (42-78); TOTAL CELLS COUNTED % (AUTO) 100 %; WHITE BLOOD COUNT 6.9 10^3/uL (4.0-10.5)
[2018-02-08 09:21] LABS: APPEARANCE,URINE SLIGHTLY-CLOUDY; BILIRUBIN,URINE NEGATIVE (NEGATIVE); COLOR,URINE YELLOW; GLUCOSE, URINE NEGATIVE (NEGATIVE); KETONES,URINE NEGATIVE (NEGATIVE); LEUKOCYTE ESTERASE,URINE SMALL (NEGATIVE); NITRITE,URINE NEGATIVE (NEGATIVE); PROTEIN,URINE NEGATIVE (NEGATIVE); UROBILINOGEN,URINE NEGATIVE mg/dL (<2.0)
[2018-02-08 09:51] LABS: ALBUMIN 3.7 g/dL (3.5-5.0); ANION GAP 7 (5-19); BLOOD UREA NITROGEN 14 mg/dL (7-20); CALCIUM 9.6 mg/dL (8.4-10.2); CARBON DIOXIDE 27 mmol/L (22-30); CHLORIDE 106 mmol/L (98-107); GLUCOSE 103 mg/dL (75-110); PHOSPHORUS 2.4 mg/dL (2.5-4.5); SODIUM 140.4 mmol/L (137-145)
[2018-02-09 13:38] LABS: CREATININE URINE 75.4 mg/dL (Not Estab.); MICROALBUMIN URINE 72.9 ug/mL (Not Estab.)
== END ==
LOC: OD 08:37
PROVIDERS: ATTEND Internal Medicine Nephrology
DX: I12.9 Hypertensive chronic kidney disease with stage 1 through stage 4 chronic kidney disease, or unspecified chronic kidney disease (principal); N18.3 Chronic kidney disease, stage 3 (moderate); D63.8 Anemia in other chronic diseases classified elsewhere
CPT/HCPCS: 36415; 80048; 81001; 82040; 82043; 82306; 82570; 83970; 84100; 85025

== ENCOUNTER → 2018-06-18 | Outpatient (CLI) | payer MEDICARE, OTHER ==
[2018-06-18 15:02] LABS: ANION GAP 8 (5-19); BLOOD UREA NITROGEN 27 mg/dL (7-20); CALCIUM 9.9 mg/dL (8.4-10.2); CARBON DIOXIDE 23 mmol/L (22-30); CHLORIDE 110 mmol/L (98-107); GLUCOSE 106 mg/dL (75-110); PHOSPHORUS 4.4 mg/dL (2.5-4.5); POTASSIUM 4.1 mmol/L (3.6-5.0); SODIUM 140.5 mmol/L (137-145)
[2018-06-19 11:38] LABS: CREATININE URINE 122.3 mg/dL (Not Estab.); MICROALBUMIN URINE 45.9 ug/mL (Not Estab.)
== END ==
LOC: OD 13:52
PROVIDERS: ATTEND Internal Medicine Nephrology
DX: I12.9 Hypertensive chronic kidney disease with stage 1 through stage 4 chronic kidney disease, or unspecified chronic kidney disease (principal); N18.3 Chronic kidney disease, stage 3 (moderate); E21.3 Hyperparathyroidism, unspecified; D63.8 Anemia in other chronic diseases classified elsewhere
CPT/HCPCS: 36415; 80048; 82043; 82570; 83970; 84100

== ENCOUNTER → 2018-10-19 | Outpatient (CLI) | payer MEDICARE, OTHER ==
[2018-10-19 09:47] LABS: ABSOLUTE BASOPHILS # (AUTO) 0.1 10^3/uL (0.0-0.2); ABSOLUTE EOSINOPHILS # (AUTO) 0.1 10^3/uL (0.0-0.6); ABSOLUTE LYMPHOCYTES (AUTO) 2.9 10^3/uL (0.5-4.7); ABSOLUTE MONOCYTES (AUTO) 0.6 10^3/uL (0.1-1.4); ABSOLUTE NEUT (AUTO) 2.8 10^3/uL (1.7-8.2); BASOPHILS % (AUTO) 0.8 % (0-2); EOSINOPHILS % (AUTO) 1.8 % (0-6); HEMATOCRIT 41.4 % (36.0-47.0); HEMOGLOBIN 13.9 g/dL (12.0-15.5); MEAN CORPUSCULAR HEMOGLOBIN 32.6 pg (27.0-33.4); MEAN CORPUSCULAR HGB CONC 33.5 g/dL (32.0-36.0); MEAN CORPUSCULAR VOLUME 97 fl (80-97); PLATELET COUNT 195 10^3/uL (150-450); RED BLOOD COUNT 4.26 10^6/uL (3.72-5.28); RED CELL DISTRIBUTION WIDTH 14.8 % (11.5-14.0); SEGMENTED NEUTROPHILS % (AUTO) 43.4 % (42-78); TOTAL CELLS COUNTED % (AUTO) 100 %; WHITE BLOOD COUNT 6.4 10^3/uL (4.0-10.5)
[2018-10-19 09:54] LABS: APPEARANCE,URINE SLIGHTLY-CLOUDY; BILIRUBIN,URINE NEGATIVE (NEGATIVE); COLOR,URINE YELLOW; GLUCOSE, URINE NEGATIVE (NEGATIVE); KETONES,URINE NEGATIVE (NEGATIVE); LEUKOCYTE ESTERASE,URINE MODERATE (NEGATIVE); NITRITE,URINE NEGATIVE (NEGATIVE); PROTEIN,URINE NEGATIVE (NEGATIVE); URINE SPECIFIC GRAVITY 1.018; UROBILINOGEN,URINE NEGATIVE mg/dL (<2.0)
[2018-10-19 10:10] LABS: ALBUMIN 3.4 g/dL (3.5-5.0); ANION GAP 9 (5-19); BLOOD UREA NITROGEN 28 mg/dL (7-20); CALCIUM 9.7 mg/dL (8.4-10.2); CARBON DIOXIDE 26 mmol/L (22-30); CHLORIDE 107 mmol/L (98-107); GLUCOSE 111 mg/dL (75-110); PHOSPHORUS 3.9 mg/dL (2.5-4.5); SODIUM 141.6 mmol/L (137-145)
[2018-10-20 10:38] LABS: CREATININE URINE 159.3 mg/dL (Not Estab.); MICROALBUMIN URINE 73.7 ug/mL (Not Estab.)
== END ==
LOC: OD 09:00
PROVIDERS: ATTEND Internal Medicine Nephrology
DX: I12.9 Hypertensive chronic kidney disease with stage 1 through stage 4 chronic kidney disease, or unspecified chronic kidney disease (principal); N18.3 Chronic kidney disease, stage 3 (moderate); D63.1 Anemia in chronic kidney disease; R80.9 Proteinuria, unspecified; E55.9 Vitamin D deficiency, unspecified
CPT/HCPCS: 36415; 80069; 81001; 82043; 82306; 82570; 83970; 85025

== ENCOUNTER 2019-01-28 13:11 | Observation (INO) | payer MEDICARE, OTHER ==
[2019-01-28] MEDS ORDERED: ASPIRIN 81 MG TABLET, CHEWABLE PO ONE (13:16)
[2019-01-28 13:58] LABS: ABSOLUTE EOSINOPHILS # (AUTO) 0.1 10^3/uL (0.0-0.6); ABSOLUTE LYMPHOCYTES (AUTO) 2.2 10^3/uL (0.5-4.7); ABSOLUTE MONOCYTES (AUTO) 0.9 10^3/uL (0.1-1.4); ABSOLUTE NEUT (AUTO) 4.4 10^3/uL (1.7-8.2); BASOPHILS % (AUTO) 0.5 % (0-2); EOSINOPHILS % (AUTO) 1.2 % (0-6); HEMOGLOBIN 13.9 g/dL (12.0-15.5); LYMPHOCYTES % (AUTO) 29.1 % (13-45); MEAN CORPUSCULAR HEMOGLOBIN 32.6 pg (27.0-33.4); MEAN CORPUSCULAR HGB CONC 34.1 g/dL (32.0-36.0); MEAN CORPUSCULAR VOLUME 96 fl (80-97); MONOCYTES % (AUTO) 11.4 % (3-13); PLATELET COUNT 183 10^3/uL (150-450); RED BLOOD COUNT 4.27 10^6/uL (3.72-5.28); RED CELL DISTRIBUTION WIDTH 13.5 % (11.5-14.0); SEGMENTED NEUTROPHILS % (AUTO) 57.8 % (42-78); TOTAL CELLS COUNTED % (AUTO) 100 %; WHITE BLOOD COUNT 7.6 10^3/uL (4.0-10.5)
[2019-01-28 14:21] LABS: ALBUMIN 3.9 g/dL (3.5-5.0); ALKALINE PHOSPHATASE 93 U/L (38-126); ANION GAP 12 (5-19); ASPARTATE AMINO TRANSFERASE 21 U/L (14-36); BILIRUBIN,DIRECT 0.1 mg/dL (0.0-0.4); BILIRUBIN,TOTAL 0.9 mg/dL (0.2-1.3); BLOOD UREA NITROGEN 19 mg/dL (7-20); CARBON DIOXIDE 23 mmol/L (22-30); CHLORIDE 104 mmol/L (98-107); CREATINE KINASE 41 U/L (30-135); GLUCOSE 128 mg/dL (75-110); POTASSIUM 3.3 mmol/L (3.6-5.0); TOTAL PROTEIN 6.4 g/dL (6.3-8.2)
[2019-01-28 14:29] LABS: CREATINE KINASE MB 0.44 ng/mL (<4.55)
[2019-01-28 14:33] LABS: TROPONIN I < 0.012 ng/mL
--- NOTE | 2019-01-28 14:52 | ER Document Report ---
ED General - General Chief Complaint: Chest Pain Stated Complaint: CHEST PAIN Time Seen by Provider: 01/28/19 14:27 Primary Care Provider: MELY PETERSON MD [Primary Care Provider] - Follow up as needed TRAVEL OUTSIDE OF THE [place] IN LAST 30 DAYS: No - HPI Notes: 74 y/o presenting to ED for evaluation of chest pain she denies sob, nausea, sweats no h/o pe or dvt no leg swelling she had a neg pharmacologic stress test 4 years ago she denies h/o catheterizations or known cad she denies fever, chills, or cough she denies nausea/vomiting her chest pain is a left sided chest pressure that is nonradiating it was relieved w/ ntg - Related Data Allergies/Adverse Reactions: Penicillins Allergy (Mild, Verified 01/28/19 13:25) Hives rofecoxib [From Vioxx] Allergy (Mild, Verified 01/28/19 13:25) Hives Sulfa (Sulfonamide Antibiotics) Allergy (Mild, Verified 01/28/19 13:25) Hives Past Medical History - Social History Smoking Status: Unknown if Ever Smoked Family History: Reviewed & Not Pertinent, CAD, DM, Hypertension, Malignancy Patient has suicidal ideation: No Patient has homicidal ideation: No - Past Medical History Cardiac Medical History: Reports: Hx Congestive Heart Failure - Diastolic, Hx Coronary Artery Disease, Hx Heart Attack - 2016, Hx Hypercholesterolemia, Hx Hypertension Denies: Hx DVT, Hx Pulmonary Embolism Pulmonary Medical History: Reports: Hx Asthma - Steroid dependent, Hx Bronchitis, Hx COPD, Hx Pneumonia - > than 5 yrs ago, Hx Sleep Apnea - Suspected, with further testing pending. Neurological Medical History: Reports: Hx Cerebrovascular Accident - Multiple (last one at least 10 yrs ago). Denies: Hx Seizures Endocrine Medical History: Denies: Hx Diabetes Mellitus Type 1, Hx Diabetes Mellitus Type 2, Hx Hyperthyroidism, Hx Hypothyroidism Renal/ Medical History: Reports: Hx Kidney Stones. Denies: Hx Peritoneal Dialysis GI Medical History: Reports: Hx Gastritis, Hx Gastroesophageal Reflux Disease, Hx Ulcer - gastric non bleeding. Denies: Hx Cirrhosis, Hx Hepatitis Musculoskeletal Medical History: Reports Hx Arthritis - Rheumatoid, Reports Hx Fibromyalgia, Reports Hx Musculoskeletal Deformity Skin Medical History: Reports Hx Eczema Psychiatric Medical History: Reports: Hx Anxiety, Hx Depression - Denies suicidal or homicidal ideation Infectious Medical History: Denies: Hx Hepatitis Past Surgical History: Reports: Hx Adenoidectomy, Hx Cardiac Catheterization - no stents, Hx Gynecologic Surgery - uterine fibroid removal, Hx Tonsillectomy, Hx Tubal Ligation - Immunizations Hx Diphtheria, Pertussis, Tetanus Vaccination: No Hx Pneumococcal Vaccination: 02/16/12 Review of Systems - Review of Systems Constitutional: No symptoms reported EENT: No symptoms reported Cardiovascular: Chest pain Respiratory: No symptoms reported Gastrointestinal: No symptoms reported Genitourinary: No symptoms reported Female Genitourinary: No symptoms reported Musculoskeletal: No symptoms reported Skin: No symptoms reported Hematologic/Lymphatic: No symptoms reported Neurological/Psychological: No symptoms reported Physical Exam - Vital signs Vitals: Pulse Ox 96 01/28/19 13:17 Interpretation: Normal - General General appearance: Appears well, Alert - HEENT Head: Normocephalic, Atraumatic Eyes: Normal Pupils: PERRL - Respiratory Respiratory status: No respiratory distress Chest status: Nontender Breath sounds: Normal Chest palpation: Normal - Cardiovascular Rhythm: Regular Heart sounds: Normal auscultation Murmur: No Notes: chest wall is tender to palpation - Abdominal Inspection: Normal Distension: No distension Bowel sounds: Normal Tenderness: Nontender Organomegaly: No organomegaly - Back Back: Normal, Nontender - Extremities General upper extremity: Normal inspection, Nontender, Normal color, Normal ROM, Normal temperature General lower extremity: Normal inspection, Nontender, Normal color, Normal ROM, Normal temperature, Normal weight bearing. No: Lorenzo's sign - Neurological Neuro grossly intact: Yes Cognition: Normal Orientation: AAOx4 Alejandro Coma Scale Eye Opening: Spontaneous Depue Coma Scale Verbal: Oriented Alejandro Coma Scale Motor: Obeys Commands Alejandro Coma Scale Total: 15 Speech: Normal Motor strength normal: LUE, RUE, LLE, RLE Sensory: Normal - Psychological Associated symptoms: Normal affect, Normal mood - Skin Skin Temperature: Warm Skin Moisture: Dry Skin Color: Normal Course - Re-evaluation Re-evalutation: 01/28/19 14:51 chest pain resolved w/ ntg ekg acutely nonischemic check trop, cxr and will anticipate admission for chest pain rule out HEART - 4 01/28/19 16:06 admit requested 01/28/19 16:24 Dr Long to evaluate in the ED - Vital Signs Vital signs: Temp Pulse Resp BP Pulse Ox 97.2 F 12 159/100 H 99 01/28/19 13:18 01/28/19 15:01 01/28/19 14:00 01/28/19 15:01 - Laboratory Result Diagrams: 01/28/19 13:31 01/28/19 13:31 Laboratory results interpreted by me: 01/28/19 13:31 Potassium 3.3 L Creatinine 1.48 H Est GFR ( Amer) 42 L Est GFR (MDRD) Non-Af 34 L Glucose 128 H - Diagnostic Test Radiology reviewed: Reports reviewed - EKG Interpretation by Me Additional EKG results interpreted by me: 01/28/19 14:52 NSR w/ PAC"s, LVH w/ repol and borderline Q waves - Consults No standard instances Time consulted: 16:07 - hospitalist called for admit Consulted provider: will come to ER Discharge - Discharge Clinical Impression: CKD (chronic kidney disease), stage IV Chest pain Qualifiers: Chest pain type: unspecified Qualified Code(s): R07.9 - Chest pain, unspecified Hypertension Qualifiers: Hypertension type: unspecified Qualified Code(s): I10 - Essential (primary) hypertension Condition: Stable Disposition: ADMITTED OBSERVATION Admitting Provider: Mercedes (Hospitalist) Unit Admitted: Telemetry Referrals: MELY PETERSON MD [Primary Care Provider] - Follow up as needed
--- NOTE | 2019-01-28 16:08 | RADIOLOGY REPORT (SQ) ---
EXAM DESCRIPTION: CHEST SINGLE VIEW COMPLETED DATE/TIME: 01/28/2019 3:45 pm REASON FOR STUDY: chest pain COMPARISON: AP and lateral views of the chest from 01/28/2017. EXAM PARAMETERS: NUMBER OF VIEWS: One view. TECHNIQUE: Single frontal radiographic view of the chest acquired. RADIATION DOSE: NA LIMITATIONS: None. FINDINGS: LUNGS AND PLEURA: No consolidation, pleural effusion or pneumothorax. MEDIASTINUM AND HILAR STRUCTURES: Unchanged mediastinal and hilar contours. HEART AND VASCULAR STRUCTURES: No cardiomegaly. The pulmonary vasculature is within normal limits. BONES: No acute findings. HARDWARE: None in the chest. OTHER: No other finding. IMPRESSION: No acute cardiopulmonary process. TECHNICAL DOCUMENTATION: JOB ID: [id number] [employer]- All Rights Reserved Reading location - IP/workstation name: [email or web address]
--- NOTE | 2019-01-28 17:12 | PDOC H&P ---
History of Present Illness Admission Date/PCP: MELY PETERSON MD History of Present Illness: CAMMY UNDERWOOD is a 74 year old female with a history of asthma, hypertension, hyperlipidemia and also possibly rheumatoid arthritis who presents with 3 days of chest pain. She says it is intermittent. She told me she was feeling some of it right now but there was no signs of ischemia on the monitor. She says the episodes typically last 3 to 4 minutes. She said when she got to the ER it got better when they gave her some nitroglycerin. She said she sees a Dr. Sanchez with her grinder needle tip at [facility] and that she had a stress test sometimes last year that was negative. She states she thinks she is had a heart cath before and it was negative. She had a stress test about 4 years ago and that was negative. She does not smoke. Initial troponin was negative. Chest pain was not reproducible to palpation or extremity movement. She is been admitted for observation to rule out [place]. Past Medical History Cardiac Medical History: Reports: Congestive Heart Failure - Diastolic, Coronary Artery Disease, Myocardial Infarction - 2016, Hyperlipidema, Hypertension Denies: DVT, Pulmonary Embolism Pulmonary Medical History: Reports: Asthma - Steroid dependent, Bronchitis, Chronic Obstructive Pulmonary Disease (COPD), Pneumonia - > than 5 yrs ago, Sleep Apnea - Suspected, with further testing pending. Neurological Medical History: Denies: Seizures Endocrine Medical History: Denies: Diabetes Mellitus Type 1, Diabetes Mellitus Type 2, Hyperthyroidism, Hypothyroidism GI Medical History: Reports: Gastroesophageal Reflux Disease Denies: Cirrhosis, Hepatitis Musculoskeltal Medical History: Reports: Arthritis - Rheumatoid, Fibromyalgia Skin Medical History: Reports: Eczema Psychiatric Medical History: Reports: Depression - Denies suicidal or homicidal ideation Hematology: Denies: Anemia Past Surgical History Past Surgical History: Reports: Adenoidectomy, Cardiac Catheterization - no stents, Tonsillectomy, Tubal Ligation Social History Smoking Status: Unknown if Ever Smoked Frequency of Alcohol Use: None Hx Recreational Drug Use: No Drugs: None Hx Prescription Drug Abuse: No Family History Family History: Reviewed & Not Pertinent, CAD, DM, Hypertension, Malignancy Parental Family History Reviewed: Yes - Mother had an [place] Children Family History Reviewed: Yes - She said her daughter had an [place] but does not know if she had coronary artery disease Sibling(s) Family History Reviewed.: Yes - Sister has hypertension Medication/Allergy Home Medications: Amlodipine Besylate [Norvasc 5 mg Tablet] 5 mg PO DAILY 01/28/17 Atorvastatin Calcium [Lipitor 80 mg Tablet] 80 mg PO QHS 01/28/17 Citalopram Hydrobromide [Celexa 20 mg Tablet] 20 mg PO DAILY 01/28/17 Cyclobenzaprine HCl [Flexeril 10 mg Tablet] 10 mg PO TIDP PRN 01/28/17 Fluticasone/Salmeterol [Advair HFA 230-21 mcg Inhaler] 1 puff IH Q12 01/28/17 Gabapentin [Neurontin 300 mg Capsule] 300 mg PO DAILY 01/28/17 Gabapentin [Neurontin 300 mg Capsule] 600 mg PO QHS 01/28/17 Ipratropium/Albuterol Sulfate [Duoneb 3 ml Ampul] 3 ml NEB RTQIDP PRN 01/28/17 Metoprolol Tartrate [Lopressor 50 mg Tablet] 50 mg PO Q12 01/28/17 Montelukast Sodium [Singulair 10 mg Tablet] 10 mg PO QPM 01/28/17 Olmesartan/Hydrochlorothiazide [Olmesartan-Hctz 40-12.5 mg Tab] 1 tab PO DAILY 01/28/17 Omeprazole 40 mg PO DAILY 01/28/17 Prednisone [Deltasone 10 mg Tablet] 10 mg PO ASDIR PRN 01/28/17 Sertraline HCl [Zoloft] 100 mg PO DAILY 01/28/17 Tiotropium [place] [Spiriva Respimat] 2 puff IH DAILY 01/28/17 Tramadol HCl [Ultram 50 mg Tablet] 50 mg PO Q6HP PRN 01/28/17 Triamterene/Hydrochlorothiazid [Triamterene-Hctz 37.5-25 mg Cp] 1 cap PO DAILY 01/28/17 Allergies/Adverse Reactions: Penicillins Allergy (Mild, Verified 01/28/19 13:25) Hives rofecoxib [From Vioxx] Allergy (Mild, Verified 01/28/19 13:25) Hives Sulfa (Sulfonamide Antibiotics) Allergy (Mild, Verified 01/28/19 13:25) Hives Review of Systems All systems: reviewed and no additional remarkable complaints except as stated - All systems were reviewed and were negative except as noted above Physical Exam Vital Signs: Temp Pulse Resp BP Pulse Ox 97.2 F 12 159/100 H 99 01/28/19 13:18 01/28/19 15:01 01/28/19 14:00 01/28/19 15:01 Intake & Output 01/27/19 01/28/19 01/29/19 06:59 06:59 06:59 Weight 54.431 kg General appearance: PRESENT: no acute distress, cooperative, disheveled Head exam: PRESENT: atraumatic, normocephalic Eye exam: PRESENT: EOMI, PERRLA. ABSENT: conjunctival injection, nystagmus, scleral icterus Ear exam: PRESENT: normal external ear exam Mouth exam: PRESENT: dry mucosa, neck supple Teeth exam: PRESENT: poor dentation Throat exam: ABSENT: post pharyngeal erythema Neck exam: PRESENT: full ROM. ABSENT: carotid bruit, JVD, lymphadenopathy, meningismus, tenderness, thyromegaly Respiratory exam: PRESENT: clear to auscultation smiley, symmetrical, unlabored. ABSENT: accessory muscle use, chest wall tenderness, crackles, prolonged ex piratory phas, rhonchi, tachypnea, wheezes Cardiovascular exam: PRESENT: RRR, +S1, +S2 Pulses: PRESENT: normal carotid pulses Vascular exam: PRESENT: normal capillary refill GI/Abdominal exam: PRESENT: normal bowel sounds, soft. ABSENT: distended, guarding, rebound, tenderness Extremities exam: ABSENT: clubbing, pedal edema Musculoskeletal exam: PRESENT: normal inspection. ABSENT: deformity Neurological exam: PRESENT: alert, awake, oriented to person, oriented to place, oriented to situation, CN II-XII grossly intact. ABSENT: motor sensory deficit Psychiatric exam: PRESENT: appropriate affect, normal mood Skin exam: PRESENT: dry, warm Results Laboratory Results: 01/28/19 13:31 01/28/19 13:31 01/28/19 01/28/19 13:31 13:31 WBC 7.6 RBC 4.27 Hgb 13.9 Hct 41.0 MCV 96 MCH 32.6 MCHC 34.1 RDW 13.5 Plt Count 183 Seg Neutrophils % 57.8 Sodium 139.1 Potassium 3.3 L Chloride 104 Carbon Dioxide 23 Anion Gap 12 BUN 19 Creatinine 1.48 H Est GFR ( Amer) 42 L Glucose 128 H Calcium 10.0 Total Bilirubin 0.9 AST 21 Alkaline Phosphatase 93 Total Protein 6.4 Albumin 3.9 09/13/19 09/13/19 13:31 13:31 Creatine Kinase 41 CK-MB (CK-2) 0.44 Troponin I < 0.012 Impressions: Chest X-Ray 01/28/19 00:00 IMPRESSION: No acute cardiopulmonary process. Assessment and Plan - Diagnosis (1) Chest pain Qualifiers: Chest pain type: unspecified Qualified Code(s): R07.9 - Chest pain, unspecified Is this a current diagnosis for this admission?: Yes Plan: She carries a diagnosis of coronary artery disease but I do not know if this ever actually been prove that she does in fact have coronary artery disease. She is had multiple negative stress test and a negative heart catheterization a ccording to her. Her initial troponin was negative. Chest x-ray and telemetry did not show signs of ischemia. We will put on aspirin and continue her statin. We will trend her troponins. We will keep on the monitor overnight. We will repeat an EKG in the morning. We will not be able to get a stress test over the weekend. If the circumstances are right tomorrow, and she rules out, we might be able to go home in that event and set her up for an outpatient stress test. (2) CKD (chronic kidney disease), stage IV Is this a current diagnosis for this admission?: Yes Plan: Creatinine is stable in its typical range (3) Hypertension Qualifiers: Hypertension type: unspecified Qualified Code(s): I10 - Essential (primary) hypertension Is this a current diagnosis for this admission?: Yes Plan: She was hypertensive in the ER. We will make sure she gets her usual blood pressure medications monitor the response. (4) Asthma Qualifiers: Asthma severity: unspecified severity Asthma complication type: uncomplicated Qualified Code(s): J45.909 - Unspecified asthma, uncomplicated Is this a current diagnosis for this admission?: Yes Plan: Not acutely exacerbated. We will continue her home medications. - Time Time Spent with patient: 35 or more minutes
[2019-01-28] MEDS: ACETAMINOPHEN 325 MG TABLET PO PRN (22:07)
[2019-01-28] MEDS: HEPARIN SOD (PORCINE) 5,000 UNIT/ML 1 ML VIAL SUBCUT SCH (22:07)
--- NOTE | 2019-01-28 23:06 | EKG REPORT ---
SEVERITY:- ABNORMAL ECG - SINUS RHYTHM MULTIPLE ATRIAL PREMATURE COMPLEXES LVH WITH SECONDARY REPOLARIZATION ABNORMALITY ANTERIOR Q WAVES, POSSIBLY DUE TO LVH : Confirmed by: Samantha Wong MD 28-Jan-2019 23:04:51
[2019-01-29] MEDS ORDERED: KETOROLAC TROMETHAMINE INJ/PF 30 MG/1 ML SDV IV PRN (00:35)
[2019-01-29] MEDS ORDERED: METOPROLOL TARTRATE 50 MG TABLET PO PRN (05:30)
[2019-01-29] MEDS ORDERED: HYDRALAZINE HCL INJ/PF 20 MG/1 ML SDV IV PRN (05:31)
[2019-01-29] MEDS: ACETAMINOPHEN 325 MG TABLET PO PRN (06:01)
[2019-01-29] MEDS: HEPARIN SOD (PORCINE) 5,000 UNIT/ML 1 ML VIAL SUBCUT SCH (06:01)
[2019-01-29 07:29] LABS: HEMATOCRIT 37.9 % (36.0-47.0); HEMOGLOBIN 12.9 g/dL (12.0-15.5); MEAN CORPUSCULAR HEMOGLOBIN 32.2 pg (27.0-33.4); MEAN CORPUSCULAR HGB CONC 33.9 g/dL (32.0-36.0); MEAN CORPUSCULAR VOLUME 95 fl (80-97); PLATELET COUNT 171 10^3/uL (150-450); RED BLOOD COUNT 3.99 10^6/uL (3.72-5.28); RED CELL DISTRIBUTION WIDTH 13.6 % (11.5-14.0); WHITE BLOOD COUNT 6.3 10^3/uL (4.0-10.5)
[2019-01-29 07:45] LABS: ANION GAP 10 (5-19); BLOOD UREA NITROGEN 18 mg/dL (7-20); CALCIUM 9.2 mg/dL (8.4-10.2); CARBON DIOXIDE 22 mmol/L (22-30); CHLORIDE 105 mmol/L (98-107); CHOLESTEROL 190.01 mg/dL (0-200); GLUCOSE 123 mg/dL (75-110); POTASSIUM 3.4 mmol/L (3.6-5.0); TRIGLYCERIDES 88 mg/dL (<150)
[2019-01-29 07:55] LABS: DIRECT LDL 122 mg/dL (<100)
[2019-01-29] MEDS ORDERED: PANTOPRAZOLE SODIUM 40 MG TABLET.DR PO SCH (10:00)
[2019-01-29] MEDS ORDERED: FLUOXETINE HCL 20 MG CAPSULE PO SCH (10:00)
[2019-01-29] MEDS ORDERED: AMLODIPINE BESYLATE 5 MG TABLET PO SCH (10:00)
[2019-01-29 11:33] VITALS: BP 136/79
--- NOTE | 2019-01-29 17:00 | PDOC DISCHARGE SUMMARY ---
General - Admit/Disc Date/PCP Admission Date/Primary Care Provider: 01/28/19 17:22 MELY PETERSON MD Discharge Date: 01/29/19 - Discharge Diagnosis (1) Chest pain Is this a current diagnosis for this admission?: Yes Summary: Troponins were negative x3. Chest pain resolved yesterday. No signs of ischemia on telemetry or on her EKGs. At says in the chart that she has a history of coronary artery disease, but in the last few years she has had 2- stress test and a negative cardiac catheterization. The last negative stress test was sometime last year. We will get her set up for a stress test as an outpatient. (2) CKD (chronic kidney disease), stage IV Is this a current diagnosis for this admission?: Yes Summary: Stable in its usual range (3) Hypertension Is this a current diagnosis for this admission?: Yes Summary: Controlled with her home medication (4) Asthma Is this a current diagnosis for this admission?: Yes Summary: Not acutely exacerbated - Additional Information Resuscitation Status: Full Code Discharge Diet: Cardiac Discharge Activity: Activity As Tolerated, Balance Activity w/Rest, Slowly Increase Activity Home Medications: Amlodipine Besylate [Norvasc 5 mg Tablet] 5 mg PO DAILY 01/28/17 Atorvastatin Calcium [Lipitor 80 mg Tablet] 80 mg PO QHS 01/28/17 Metoprolol Tartrate [Lopressor 50 mg Tablet] 50 mg PO DAILYP PRN 01/28/17 Montelukast Sodium [Singulair 10 mg Tablet] 10 mg PO QPM 01/28/17 Omeprazole 40 mg PO DAILY 01/28/17 Triamterene/Hydrochlorothiazid [Triamterene-Hctz 37.5-25 mg Cp] 1 cap PO DAILYP PRN 01/28/17 Albuterol Sulfate [Albuterol Sulfate Hfa] 2 puff IH Q6HP PRN 01/28/19 Calcitriol [Rocaltrol 0.25 mcg Capsule] 0.25 mcg PO DAILY 01/28/19 Fluoxetine HCl [Prozac 20 mg Capsule] 20 mg PO DAILY 01/28/19 Potassium Chloride [Klor-Con 10 Meq Capsule ER] 10 meq PO BID 01/28/19 Prednisone [Deltasone 20 mg Tablet] 20 mg PO DAILY 01/28/19 Sodium Bicarbonate [Sodium Bicarbonate 650 mg Tablet] 650 mg PO DAILY 01/28/19 History of Present Illness History of Present Illness: CAMMY UNDERWOOD is a 74 year old female with a history of asthma, hypertension, hyperlipidemia and also possibly rheumatoid arthritis who presents with 3 days of chest pain. She says it is intermittent. She told me she was feeling some of it right now but there was no signs of ischemia on the monitor. She says the episodes typically last 3 to 4 minutes. She said when she got to the ER it got better when they gave her some nitroglycerin. She said she sees a Dr. Sanchez with her flask pusher at [facility] and that she had a stress test sometimes last year that was negative. She states she thinks she is had a heart cath before and it was negative. She had a stress test about 4 years ago and that was negative. She does not smoke. Initial troponin was negative. Chest pain was not reproducible to palpation or extremity movement. She is been admitted for observation to rule out [place]. Hospital Course Hospital Course: She had negative cardiac enzymes. Chest pain had resolved by yesterday. No signs of ischemia on telemetry or on her EKGs. She says she sees a Dr. Sanchez who is her flask pusher at [facility] in their [place] office. We are going to try to set up a stress test for her as an outpatient. Her labs and examination were reassuring and she was discharged in good condition. Physical Exam Vital Signs: Temp Pulse Resp BP Pulse Ox 98.4 F 98 14 136/79 H 96 01/29/19 11:30 01/29/19 11:30 01/29/19 11:30 01/29/19 11:30 01/29/19 11:30 Intake & Output 01/28/19 01/29/19 01/30/19 06:59 06:59 06:59 Intake Total 260 Balance 260 Weight 54.8 kg General appearance: PRESENT: no acute distress, cooperative, disheveled Respiratory exam: PRESENT: clear to auscultation smiley, symmetrical, unlabored. ABSENT: accessory muscle use, chest wall tenderness, crackles, prolonged expiratory phas, rhonchi, tachypnea, wheezes Cardiovascular exam: PRESENT: RRR, +S1, +S2 Pulses: PRESENT: normal carotid pulses Vascular exam: PRESENT: normal capillary refill GI/Abdominal exam: PRESENT: normal bowel sounds, soft. ABSENT: distended, guarding, rebound, tenderness Extremities exam: ABSENT: clubbing, pedal edema Musculoskeletal exam: PRESENT: normal inspection. ABSENT: deformity Neurological exam: PRESENT: alert, awake, oriented to person, oriented to place, oriented to situation Psychiatric exam: PRESENT: appropriate affect, normal mood Skin exam: PRESENT: dry, warm Results Laboratory Results: 01/29/19 07:18 01/29/19 07:18 01/29/19 01/29/19 07:18 07:18 WBC 6.3 RBC 3.99 Hgb 12.9 Hct 37.9 MCV 95 MCH 32.2 MCHC 33.9 RDW 13.6 Plt Count 171 Sodium 136.9 L Potassium 3.4 L Chloride 105 Carbon Dioxide 22 Anion Gap 10 BUN 18 Creatinine 1.54 H Est GFR ( Amer) 40 L Glucose 123 H Calcium 9.2 Triglycerides 88 Cholesterol 190.01 LDL Cholesterol Direct 122 H VLDL Cholesterol 18.0 HDL Cholesterol 53 01/28/19 01/28/19 01/28/19 13:31 13:31 17:11 Creatine Kinase 41 CK-MB (CK-2) 0.44 Troponin I < 0.012 < 0.012 01/28/19 01/29/19 01/29/19 18:15 00:33 07:18 Creatine Kinase CK-MB (CK-2) Troponin I < 0.012 < 0.012 < 0.012 Impressions: Chest X-Ray 01/28/19 00:00 IMPRESSION: No acute cardiopulmonary process. Qualifiers - * PATIENT BEING DISCHARGED WITH ANY OF THE FOLLOWING DIAGNOSIS: No Acute Heart Failure - Is this a Heart Failure Patient?: No Follow-up Appointment scheduled within 7 days?: Yes Plan Time Spent: Greater than 30 Minutes
[2019-01-29] MEDS ORDERED: MONTELUKAST SODIUM 10 MG TABLET PO SCH (18:00)
--- NOTE | 2019-01-29 19:43 | EKG REPORT ---
SEVERITY:- ABNORMAL ECG - SINUS RHYTHM LEFT AXIS DEVIATION LEFT VENTRICULAR HYPERTROPHY ANTERIOR Q WAVES, POSSIBLY DUE TO LVH : Confirmed by: Samantha Wong MD 29-Jan-2019 19:42:57
[2019-01-29] MEDS ORDERED: ATORVASTATIN CALCIUM 80 MG TABLET PO SCH (22:00)
== END 2019-01-29 11:52 | disposition home or self-care (01) ==
LOC: ER 13:11 → EH 17:22 → 4S 20:33
PROVIDERS: ADMIT Family Medicine; ATTEND Family Medicine
DX: R07.9 Chest pain, unspecified (principal); I25.10 Atherosclerotic heart disease of native coronary artery without angina pectoris; I12.9 Hypertensive chronic kidney disease with stage 1 through stage 4 chronic kidney disease, or unspecified chronic kidney disease; N18.4 Chronic kidney disease, stage 4 (severe); J45.909 Unspecified asthma, uncomplicated; E78.5 Hyperlipidemia, unspecified; F32.9 Major depressive disorder, single episode, unspecified; M79.7 Fibromyalgia; I25.2 Old myocardial infarction; Z79.899 Other long term (current) drug therapy; Z82.49 Family history of ischemic heart disease and other diseases of the circulatory system
CPT/HCPCS: 93005 ×2; 99285; 36415 ×2; 82553; 82550; 85025; 85027; 80048; 80053; 84484 ×2; 80061; 71045; 93010 ×2; G0378 ×3; A9270 ×4; J1644 ×2; J0360; J1885; J3490 ×3

== ENCOUNTER → 2019-02-22 | Outpatient (CLI) | payer MEDICARE, OTHER ==
[2019-02-22 17:51] LABS: ALBUMIN 3.6 g/dL (3.5-5.0); ANION GAP 15 (5-19); BLOOD UREA NITROGEN 16 mg/dL (7-20); CALCIUM 9.6 mg/dL (8.4-10.2); CARBON DIOXIDE 20 mmol/L (22-30); CHLORIDE 102 mmol/L (98-107); GLUCOSE 144 mg/dL (75-110); POTASSIUM 4.5 mmol/L (3.6-5.0)
[2019-02-24 12:36] LABS: CREATININE URINE 340.6 mg/dL (Not Estab.); MICROALBUMIN URINE 137.6 ug/mL (Not Estab.)
== END ==
LOC: OD 16:32
PROVIDERS: ATTEND Internal Medicine Nephrology
DX: I12.9 Hypertensive chronic kidney disease with stage 1 through stage 4 chronic kidney disease, or unspecified chronic kidney disease (principal); N18.2 Chronic kidney disease, stage 2 (mild); R80.9 Proteinuria, unspecified; N25.81 Secondary hyperparathyroidism of renal origin
CPT/HCPCS: 36415; 80048; 82040; 82043; 82570; 83970

== ENCOUNTER 2019-09-26 19:26 | Observation (INO) | payer MEDICARE, OTHER ==
[2019-09-26 20:43] LABS: ABSOLUTE EOSINOPHILS # (AUTO) 0.2 10^3/uL (0.0-0.6); ABSOLUTE LYMPHOCYTES (AUTO) 1.7 10^3/uL (0.5-4.7); ABSOLUTE MONOCYTES (AUTO) 0.6 10^3/uL (0.1-1.4); ABSOLUTE NEUT (AUTO) 2.9 10^3/uL (1.7-8.2); BASOPHILS % (AUTO) 0.6 % (0-2); EOSINOPHILS % (AUTO) 3.5 % (0-6); HEMATOCRIT 40.3 % (36.0-47.0); HEMOGLOBIN 13.4 g/dL (12.0-15.5); LYMPHOCYTES % (AUTO) 31.3 % (13-45); MEAN CORPUSCULAR HEMOGLOBIN 33.4 pg (27.0-33.4); MEAN CORPUSCULAR HGB CONC 33.4 g/dL (32.0-36.0); MEAN CORPUSCULAR VOLUME 100 fl (80-97); MONOCYTES % (AUTO) 10.9 % (3-13); PLATELET COUNT 181 10^3/uL (150-450); RED BLOOD COUNT 4.02 10^6/uL (3.72-5.28); RED CELL DISTRIBUTION WIDTH 14.7 % (11.5-14.0); SEGMENTED NEUTROPHILS % (AUTO) 53.7 % (42-78); TOTAL CELLS COUNTED % (AUTO) 100 %; WHITE BLOOD COUNT 5.4 10^3/uL (4.0-10.5)
--- NOTE | 2019-09-26 20:55 | RADIOLOGY REPORT (SQ) ---
EXAM DESCRIPTION: XR CHEST 1 VIEW COMPLETED DATE/TME: 09/26/2019 20:15 CLINICAL HISTORY: 74 years, Female, dyspnea COMPARISON: 01/28/2019 EXAM DESCRIPTION: CLINICAL HISTORY: dyspnea COMPARISON: 01/28/2019 FINDINGS: Single view of the chest is submitted. Cardiac silhouette is normal. No focal parenchymal or pleural disease. No acute bony abnormality. There is bilateral central pulmonary vascular engorgement. IMPRESSION: Increased pulmonary vascular engorgement. No focal consolidation.
[2019-09-26 20:58] LABS: ALBUMIN 3.1 g/dL (3.5-5.0); ALKALINE PHOSPHATASE 294 U/L (38-126); ANION GAP 5 (5-19); ASPARTATE AMINO TRANSFERASE 39 U/L (14-36); BILIRUBIN,DIRECT 0.2 mg/dL (0.0-0.4); BILIRUBIN,TOTAL 0.8 mg/dL (0.2-1.3); BLOOD UREA NITROGEN 22 mg/dL (7-20); CALCIUM 8.8 mg/dL (8.4-10.2); CARBON DIOXIDE 23 mmol/L (22-30); CHLORIDE 110 mmol/L (98-107); CREATINE KINASE 37 U/L (30-135); GLUCOSE 104 mg/dL (75-110); POTASSIUM 3.7 mmol/L (3.6-5.0); TOTAL PROTEIN 5.9 g/dL (6.3-8.2)
[2019-09-26] MEDS ORDERED: ASPIRIN 81 MG TABLET, CHEWABLE PO ONE (21:57)
[2019-09-26 22:20] LABS: VENOUS BLOOD BASE EXCESS -3.7 mmol/L; VENOUS BLOOD HCO3 21.1 mmol/L (20-32); VENOUS BLOOD PCO2 37.4 mmHg (35-63); VENOUS BLOOD PH 7.37 (7.30-7.42)
--- NOTE | 2019-09-26 22:35 | ER Document Report ---
ED Cardiac - General Chief Complaint: Chest Pain Stated Complaint: SHORTNESS OF BREATH Time Seen by Provider: 09/26/19 21:03 Notes: Patient is 74-year-old female who presents to the emergency department with a chief complaint of chest pain and mild shortness of breath. Patient states that her chest pain started last night around 11:00. The pain is in her mid chest. Describes the pain as a squeezing pressure pain. Patient's past medical history includes chronic kidney disease, COPD, asthma, sleep apnea, CHF, hyperlipidemia, hypertension. Patient states that she saw her tight cooper after her previous visit in the hospital and had a normal cardiac work-up. States her last heart cath was years ago. TRAVEL OUTSIDE OF THE [place] IN LAST 30 DAYS: No - Related Data Allergies/Adverse Reactions: Penicillins Allergy (Mild, Verified 09/26/19 20:13) Hives rofecoxib [From Vioxx] Allergy (Mild, Verified 09/26/19 20:13) Hives Sulfa (Sulfonamide Antibiotics) Allergy (Mild, Verified 09/26/19 20:13) Hives Past Medical History - Social History Smoking Status: Never Smoker Family History: Reviewed & Not Pertinent, CAD, DM, Hypertension, Malignancy Patient has homicidal ideation: No - Past Medical History Cardiac Medical History: Reports: Hx Congestive Heart Failure, Hx Coronary Artery Disease, Hx Heart Attack - 2016, Hx Hypercholesterolemia, Hx Hypertension Denies: Hx DVT, Hx Pulmonary Embolism Pulmonary Medical History: Reports: Hx Asthma, Hx Bronchitis, Hx COPD, Hx Pneumonia - > than 5 yrs ago, Hx Sleep Apnea - Suspected, with further testing pending. Neurological Medical History: Reports: Hx Cerebrovascular Accident - Multiple (last one at least 10 yrs ago). Denies: Hx Seizures Endocrine Medical History: Denies: Hx Diabetes Mellitus Type 1, Hx Diabetes Mellitus Type 2, Hx Hyperthyroidism, Hx Hypothyroidism Renal/ Medical History: Reports: Hx Kidney Stones. Denies: Hx Peritoneal Dialysis GI Medical History: Reports: Hx Gastritis, Hx Gastroesophageal Reflux Disease, Hx Ulcer. Denies: Hx Cirrhosis, Hx Hepatitis Musculoskeletal Medical History: Reports Hx Arthritis, Reports Hx Fibromyalgia, Reports Hx Musculoskeletal Deformity Skin Medical History: Reports Hx Eczema Psychiatric Medical History: Reports: Hx Anxiety, Hx Depression Infectious Medical History: Denies: Hx Hepatitis Past Surgical History: Reports: Hx Adenoidectomy, Hx Cardiac Catheterization - no stents, Hx Gynecologic Surgery - uterine fibroid removal, Hx Tonsillectomy, H x Tubal Ligation - Immunizations Hx Diphtheria, Pertussis, Tetanus Vaccination: No Hx Pneumococcal Vaccination: 02/16/12 Review of Systems - Review of Systems Notes: REVIEW OF SYSTEMS: CONSTITUTIONAL : Denies recent illness. Denies recent unintentional weight loss. Denies fever, chills, or sweats. EENT: Denies eye, ear, throat, or mouth pain, discharge, or symptoms. Denies nasal or sinus congestion. CARDIOVASCULAR: See HPI. RESPIRATORY: See HPI. GASTROINTESTINAL: Denies nausea, vomiting, and diarrhea. Denies abdominal pain. Denies constipation. GENITOURINARY: Denies difficulty urinating, burning, blood in urine, urgency or frequency. MUSCULOSKELETAL: Denies neck and back pain. Denies joint pain or swelling. SKIN: Denies rash, itchiness, or lesions HEMATOLOGIC : Denies easy bruising or bleeding. LYMPHATIC: Denies swollen, painful, enlarged glands. NEUROLOGICAL: Denies no numbness or tingling denies weakness. Denies headache. Denies altered mental status. Denies alteration in speech. PSYCHIATRIC: Denies stress, anxiety, alteration in sleep patterns, or depression. All other systems reviewed and negative. Physical Exam - Vital signs Vitals: Resp Pulse Ox 16 99 09/26/19 20:04 09/26/19 20:04 - Notes Notes: PHYSICAL EXAMINATION: GENERAL: Appears well, healthy, well-nourished, no acute distress. HEAD: Normocephalic, atraumatic. EYES: PERRL, conjunctiva normal, all extraocular movements intact, sclera nonicteric ENT: Moist mucous membranes. NECK: Supple, no noticeable swelling, redness, rash. Normal range of motion. LUNGS: Equal breath sounds bilaterally and clear to auscultation. No wheezes rales or rhonchi. CARDIOVASCULAR: S1-S2, regular rate, regular rhythm. Radial pulses 2+, normal. ABDOMEN: Normoactive bowel sounds. Soft, nontender, no guarding, no rebound tenderness, and no masses palpated. EXTREMITIES: Normal strength and range of motion, no pitting or edema. No cya nosis. NEUROLOGICAL: Moves all extremities upon command. Strength 5/5 in all extremities. PSYCH: Normal mood, normal affect. SKIN: Warm, dry. No rash, lesions, ulcerations noted. Normal skin turgor. Course - Re-evaluation Re-evalutation: 09/26/19 22:51 Differential diagnosis for the patient's chest pain includes ischemic chest pain (STEMI, NSTEMI, or unstable angina), pulmonary embolism, aortic dissection, pericarditis, chest wall pain. HEART Score: History:1 EK Age:2 Risk Factors: 2 Troponin:0 Total: 5 Patient's heart score is a 5. Discussed labs, chest x-ray, and patient's presentation with Dr. Orta, my attending. He agrees with me that based off patient's heart score 5, patient will need to be evaluated overnight in the hospital. Attempted to call Dr. Oshea for admission or possible observation. 09/26/19 23:[address] Oshea. Patient will be held in the hospital for observation. - Vital Signs Vital signs: Temp Pulse Resp BP Pulse Ox 98.3 F 79 17 151/78 H 98 09/28/19 12:22 09/28/19 12:22 09/28/19 12:22 09/28/19 12:22 09/28/19 12:22 - Laboratory Result Diagrams: 09/26/19 20:30 09/26/19 20:30 Laboratory results interpreted by me: 09/26/19 09/26/19 09/26/19 20:30 20:30 20:30 MCV 100 H RDW 14.7 H Chloride 110 H BUN 22 H Creatinine 1.67 H Est GFR ( Amer) 36 L Est GFR (MDRD) Non-Af 30 L AST 39 H Alkaline Phosphatase 294 H NT-Pro-B Natriuret Pep 501 H Total Protein 5.9 L Albumin 3.1 L - EKG Interpretation by Me Additional EKG results interpreted by me: 09/26/19 23:02 Sinus rhythm. Rate 71. KS 144; QRS 72; QT 400; QTc 435. No ST elevations or depressions noted. Discharge - Discharge Clinical Impression: Chest pain Qualifiers: Chest pain type: unspecified Qualified Code(s): R07.9 - Chest pain, unspecified Condition: Stable Disposition: ADMITTED OBSERVATION Admitting Provider: Dayo (Hospitalist) Unit Admitted: Telemetry
[2019-09-26] MEDS ORDERED: NITROGLYCERIN 0.4 MG/TAB 25 TAB/BOTTLE SL PRN (23:09)
[2019-09-26] MEDS ORDERED: MAG HYDROX/AL HYDROX/SIMETH SUSP 30 ML UDCUP PO PRN (23:09)
[2019-09-26] MEDS ORDERED: ACETAMINOPHEN 325 MG TABLET PO PRN (23:09)
[2019-09-26 23:29] LABS: CHOLESTEROL 184.15 mg/dL (0-200); TRIGLYCERIDES 114 mg/dL (<150)
[2019-09-26] MEDS: ATORVASTATIN CALCIUM 80 MG TABLET PO SCH (23:38)
[2019-09-26 23:39] LABS: DIRECT LDL 94 mg/dL (<100)
[2019-09-27] MEDS ORDERED: HYDRALAZINE HCL INJ/PF 20 MG/1 ML SDV IV ONE (02:15)
[2019-09-27 02:47] LABS: APPEARANCE,URINE SLIGHTLY-CLOUDY; BILIRUBIN,URINE NEGATIVE (NEGATIVE); COLOR,URINE YELLOW; GLUCOSE, URINE NEGATIVE (NEGATIVE); KETONES,URINE NEGATIVE (NEGATIVE); LEUKOCYTE ESTERASE,URINE TRACE (NEGATIVE); NITRITE,URINE NEGATIVE (NEGATIVE); PROTEIN,URINE 30 mg/dL (NEGATIVE); URINE SPECIFIC GRAVITY 1.013; UROBILINOGEN,URINE NEGATIVE mg/dL (<2.0)
--- NOTE | 2019-09-27 05:52 | PDOC H&P ---
History of Present Illness Admission Date/PCP: 09/26/19 23:34 CASIMIRO WATKINS MD Patient complains of: Chest pain History of Present Illness: CAMMY UNDERWOOD is a 74 year old female with a past medical history of hypertension, COPD, CKD 3, depression and anxiety. She presents with 2 days of intermittent chest pain occurring with activity it is 2 out of 5 intensity dull in nature and nonradiating not associated with palpitations nausea vomiting or shortness of breath. In the emergency room she is found to have a systolic blood pressure in the 190s however resolves to 140 without intervention. Otherwise an unremarkable work-up and referred to the hospitalist for observation. Patient admits exacerbating factors of rubbing the anterior chest wall. She denies trauma or muscular strain. She is visibly anxious with global and verbal tremor. She denies recent change in medication regiment or abrupt discontinuation. She admits to cardiac stress test approximately 1 year ago. Past Medical History Cardiac Medical History: Reports: Congestive Heart Failure, Coronary Artery Disease, Myocardial Infarction, Hyperlipidema, Hypertension Denies: DVT, Pulmonary Embolism Pulmonary Medical History: Reports: Asthma, Bronchitis, Chronic Obstructive Pulmonary Disease (COPD), Pneumonia - > than 5 yrs ago, Sleep Apnea - Suspected, with further testing pending. Neurological Medical History: Denies: Seizures Endocrine Medical History: Denies: Diabetes Mellitus Type 1, Diabetes Mellitus Type 2, Hyperthyroidism, Hypothyroidism GI Medical History: Reports: Gastroesophageal Reflux Disease Denies: Cirrhosis, Hepatitis Musculoskeltal Medical History: Reports: Arthritis, Fibromyalgia Skin Medical History: Reports: Eczema Psychiatric Medical History: Reports: Depression Hematology: Denies: Anemia Past Surgical History Past Surgical History: Reports: Adenoidectomy, Cardiac Catheterization - no stents, Tonsillectomy, Tubal Ligation Social History Information Source: Patient, [facility] Records Smoking Status: Former Smoker Frequency of Alcohol Use: None Hx Recreational Drug Use: No Drugs: None Hx Prescription Drug Abuse: No - Advance Directive Resuscitation Status: Full Code Family History Family History: CAD, DM, Hypertension, Malignancy Parental Family History Reviewed: Yes Children Family History Reviewed: Yes Sibling(s) Family History Reviewed.: Yes Medication/Allergy Home Medications: Amlodipine Besylate [Norvasc 5 mg Tablet] 5 mg PO DAILY 01/28/17 Atorvastatin Calcium [Lipitor 80 mg Tablet] 80 mg PO QHS 01/28/17 Metoprolol Tartrate [Lopressor 50 mg Tablet] 50 mg PO DAILYP PRN 01/28/17 Montelukast Sodium [Singulair 10 mg Tablet] 10 mg PO QPM 01/28/17 Omeprazole 40 mg PO DAILY 01/28/17 Triamterene/Hydrochlorothiazid [Triamterene-Hctz 37.5-25 mg Cp] 1 cap PO DAILYP PRN 01/28/17 Albuterol Sulfate [Albuterol Sulfate Hfa] 2 puff IH Q6HP PRN 01/28/19 Calcitriol [Rocaltrol 0.25 mcg Capsule] 0.25 mcg PO DAILY 01/28/19 Fluoxetine HCl [Prozac 20 mg Capsule] 20 mg PO DAILY 01/28/19 Potassium Chloride [Klor-Con 10 Meq Tablet ER] 10 meq PO BID 01/28/19 Prednisone [Deltasone 20 mg Tablet] 20 mg PO DAILY 01/28/19 Sodium Bicarbonate [Sodium Bicarbonate 650 mg Tablet] 650 mg PO DAILY 01/28/19 Allergies/Adverse Reactions: Penicillins Allergy (Mild, Verified 09/26/19 20:13) Hives rofecoxib [From Vioxx] Allergy (Mild, Verified 09/26/19 20:13) Hives Sulfa (Sulfonamide Antibiotics) Allergy (Mild, Verified 09/26/19 20:13) Hives Review of Systems Constitutional: ABSENT: chills, fever(s), headache(s), weight gain, weight loss Eyes: ABSENT: visual disturbances Ears: ABSENT: hearing changes Cardiovascular: ABSENT: chest pain, dyspnea on exertion, edema, orthropnea, palpitations Respiratory: ABSENT: cough, hemoptysis Gastrointestinal: ABSENT: abdominal pain, constipation, diarrhea, hematemesis, hematochezia, nausea, vomiting Genitourinary: ABSENT: dysuria, hematuria Musculoskeletal: ABSENT: joint swelling Integumentary: ABSENT: rash, wounds Neurological: ABSENT: abnormal gait, abnormal speech, confusion, dizziness, focal weakness, syncope Psychiatric: ABSENT: anxiety, depression, homidical ideation, suicidal ideation Endocrine: ABSENT: cold intolerance, heat intolerance, polydipsia, polyuria Hematologic/Lymphatic: ABSENT: easy bleeding, easy bruising Physical Exam Vital Signs: Temp Pulse Resp BP Pulse Ox 98.1 F 51 L 18 121/63 98 09/27/19 03:19 09/27/19 03:19 09/27/19 03:19 09/27/19 03:19 09/27/19 03:19 Intake & Output 09/25/19 09/26/19 09/27/19 11:59 11:59 11:59 Weight 49.895 kg General appearance: PRESENT: cooperative, mild distress, well-developed, well- nourished Head exam: PRESENT: atraumatic, normocephalic Eye exam: PRESENT: conjunctiva pink, EOMI, PERRLA. ABSENT: scleral icterus Ear exam: PRESENT: normal external ear exam Mouth exam: PRESENT: moist, tongue midline Neck exam: ABSENT: carotid bruit, JVD, lymphadenopathy, thyromegaly Respiratory exam: PRESENT: clear to auscultation smiley. ABSENT: rales, rhonchi, wheezes Cardiovascular exam: PRESENT: RRR. ABSENT: diastolic murmur, rubs, systolic murmur Pulses: PRESENT: normal dorsalis pedis pul Vascular exam: PRESENT: normal capillary refill GI/Abdominal exam: PRESENT: normal bowel sounds, soft. ABSENT: distended, guarding, mass, organolmegaly, rebound, tenderness Rectal exam: PRESENT: deferred Extremities exam: PRESENT: full ROM. ABSENT: calf tenderness, clubbing, pedal edema Neurological exam: PRESENT: alert, awake, oriented to person, oriented to place, oriented to time, oriented to situation, CN II-XII grossly intact. ABSENT: motor sensory deficit Psychiatric exam: PRESENT: anxious, unusual affect. ABSENT: homicidal ideation, suicidal ideation Skin exam: PRESENT: dry, intact, warm, other - Chronic eczematous changes. ABSENT: cyanosis, rash Results Laboratory Results: 09/26/19 20:30 09/26/19 20:30 09/26/19 09/26/19 09/26/19 20:30 20:30 20:30 WBC 5.4 RBC 4.02 Hgb 13.4 Hct 40.3 MCV 100 H MCH 33.4 MCHC 33.4 RDW 14.7 H Plt Count 181 Seg Neutrophils % 53.7 VBG pH VBG pCO2 VBG HCO3 VBG Base Excess Sodium 138.1 Potassium 3.7 Chloride 110 H Carbon Dioxide 23 Anion Gap 5 BUN 22 H Creatinine 1.67 H Est GFR ( Amer) 36 L Glucose 104 Calcium 8.8 Total Bilirubin 0.8 AST 39 H Alkaline Phosphatase 294 H Total Protein 5.9 L Albumin 3.1 L Triglycerides Cholesterol LDL Cholesterol Direct VLDL Cholesterol HDL Cholesterol Lipase 127.4 TSH Urine Color Urine Appearance Urine pH Ur Specific [place] Urine Protein Urine Glucose (UA) Urine Ketones Urine Blood Urine Nitrite Ur Leukocyte Esterase Urine WBC (Auto) Urine RBC (Auto) 09/26/19 09/26/19 09/26/19 20:30 20:30 21:55 WBC RBC Hgb Hct MCV MCH MCHC RDW Plt Count Seg Neutrophils % VBG pH 7.37 VBG pCO2 37.4 VBG HCO3 21.1 VBG Base Excess -3.7 Sodium Potassium Chloride Carbon Dioxide Anion Gap BUN Creatinine Est GFR ( Amer) Glucose Calcium Total Bilirubin AST Alkaline Phosphatase Total Protein Albumin Triglycerides 114 Cholesterol 184.15 LDL Cholesterol Direct 94 VLDL Cholesterol 23.0 HDL Cholesterol 46 Lipase TSH 2.10 Urine Color Urine Appearance Urine pH Ur Specific [place] Urine Protein Urine Glucose (UA) Urine Ketones Urine Blood Urine Nitrite Ur Leukocyte Esterase Urine WBC (Auto) Urine RBC (Auto) 09/27/19 02:15 WBC RBC Hgb Hct MCV MCH MCHC RDW Plt Count Seg Neutrophils % VBG pH VBG pCO2 VBG HCO3 VBG Base Excess Sodium Potassium Chloride Carbon Dioxide Anion Gap BUN Creatinine Est GFR ( Amer) Glucose Calcium Total Bilirubin AST Alkaline Phosphatase Total Protein Albumin Triglycerides Cholesterol LDL Cholesterol Direct VLDL Cholesterol HDL Cholesterol Lipase TSH Urine Color YELLOW Urine Appearance SLIGHTLY-CLOUDY Urine pH 5.0 Ur Specific [place] 1.013 Urine Protein 30 H Urine Glucose (UA) NEGATIVE Urine Ketones NEGATIVE Urine Blood NEGATIVE Urine Nitrite NEGATIVE Ur Leukocyte Esterase TRACE H Urine WBC (Auto) 3 Urine RBC (Auto) 2 09/26/19 09/26/19 09/26/19 20:30 20:30 20:30 Creatine Kinase 37 Troponin I 0.017 NT-Pro-B Natriuret Pep 501 H 09/27/19 02:24 Creatine Kinase Troponin I < 0.012 NT-Pro-B Natriuret Pep Impressions: Chest X-Ray 09/26/19 20:15 IMPRESSION: Increased pulmonary vascular engorgement. No focal consolidation. Assessment and Plan - Diagnosis (1) Atypical chest pain Is this a current diagnosis for this admission?: Yes Plan: Atypical chest pain though the patient's pain is atypical there are multiple risk factors for coronary artery disease and subsequently will observe and evaluation of acute coronary syndrome versus coronary artery disease with anginal equivalents. Cardiac monitoring blood pressure Q6 hours ,TSH, lipid profile, serial cardiac enzymes and cardiac stress test (2) CKD (chronic kidney disease), stage III Is this a current diagnosis for this admission?: Yes Plan: At baseline, avoid nephrotoxic meds and doses follow-up chemistry. (3) Hypertension Qualifiers: Is this a current diagnosis for this admission?: Yes Plan: Follow-up medication reconciliation, hydralazine as needed, consider anxiolytic. - Time Time Spent with patient: 25-34 minutes
--- NOTE | 2019-09-27 17:33 | PDOC PROGRESS REPORT ---
Subjective Progress Note for:: 09/27/19 Subjective:: F/u of chest pain Reason For Visit: CP Physical Exam Vital Signs: Temp Pulse Resp BP Pulse Ox 98.3 F 68 17 170/89 H 95 09/27/19 16:54 09/27/19 16:54 09/27/19 16:54 09/27/19 16:54 09/27/19 16:54 Intake & Output 09/26/19 09/27/19 09/28/19 06:59 06:59 06:59 Weight 54.7 kg 54.7 kg General appearance: PRESENT: no acute distress, other - elderly female Head exam: PRESENT: atraumatic, normocephalic Eye exam: PRESENT: conjunctiva pink, EOMI, PERRLA. ABSENT: scleral icterus Mouth exam: PRESENT: tongue midline Neck exam: ABSENT: carotid bruit, JVD, lymphadenopathy, thyromegaly Respiratory exam: PRESENT: chest wall tenderness, clear to auscultation smiley. ABSENT: rales, rhonchi, wheezes Cardiovascular exam: PRESENT: RRR. ABSENT: diastolic murmur, rubs, systolic murmur Pulses: PRESENT: normal dorsalis pedis pul Vascular exam: PRESENT: normal capillary refill GI/Abdominal exam: PRESENT: normal bowel sounds, soft. ABSENT: distended, guarding, mass, organolmegaly, rebound, tenderness Rectal exam: PRESENT: deferred Extremities exam: PRESENT: full ROM. ABSENT: calf tenderness, clubbing, pedal edema Neurological exam: PRESENT: alert, awake, oriented to person, oriented to place, oriented to time, oriented to situation, CN II-XII grossly intact. ABSENT: motor sensory deficit Psychiatric exam: PRESENT: appropriate affect, normal mood. ABSENT: homicidal ideation, suicidal ideation Skin exam: PRESENT: dry, intact, rash, warm, other - old healed skin flores and scars. ABSENT: cyanosis Results Laboratory Results: 09/26/19 20:30 09/26/19 20:30 09/26/19 09/26/19 09/26/19 20:30 20:30 20:30 WBC 5.4 RBC 4.02 Hgb 13.4 Hct 40.3 MCV 100 H MCH 33.4 MCHC 33.4 RDW 14.7 H Plt Count 181 Seg Neutrophils % 53.7 VBG pH VBG pCO2 VBG HCO3 VBG Base Excess Sodium 138.1 Potassium 3.7 Chloride 110 H Carbon Dioxide 23 Anion Gap 5 BUN 22 H Creatinine 1.67 H Est GFR ( Amer) 36 L Glucose 104 Calcium 8.8 Total Bilirubin 0.8 AST 39 H Alkaline Phosphatase 294 H Total Protein 5.9 L Albumin 3.1 L Triglycerides Cholesterol LDL Cholesterol Direct VLDL Cholesterol HDL Cholesterol Lipase 127.4 TSH Urine Color Urine Appearance Urine pH Ur Specific [place] Urine Protein Urine Glucose (UA) Urine Ketones Urine Blood Urine Nitrite Ur Leukocyte Esterase Urine WBC (Auto) Urine RBC (Auto) 09/26/19 09/26/19 09/26/19 20:30 20:30 21:55 WBC RBC Hgb Hct MCV MCH MCHC RDW Plt Count Seg Neutrophils % VBG pH 7.37 VBG pCO2 37.4 VBG HCO3 21.1 VBG Base Excess -3.7 Sodium Potassium Chloride Carbon Dioxide Anion Gap BUN Creatinine Est GFR ( Amer) Glucose Calcium Total Bilirubin AST Alkaline Phosphatase Total Protein Albumin Triglycerides 114 Cholesterol 184.15 LDL Cholesterol Direct 94 VLDL Cholesterol 23.0 HDL Cholesterol 46 Lipase TSH 2.10 Urine Color Urine Appearance Urine pH Ur Specific [place] Urine Protein Urine Glucose (UA) Urine Ketones Urine Blood Urine Nitrite Ur Leukocyte Esterase Urine WBC (Auto) Urine RBC (Auto) 09/27/19 02:15 WBC RBC Hgb Hct MCV MCH MCHC RDW Plt Count Seg Neutrophils % VBG pH VBG pCO2 VBG HCO3 VBG Base Excess Sodium Potassium Chloride Carbon Dioxide Anion Gap BUN Creatinine Est GFR ( Amer) Glucose Calcium Total Bilirubin AST Alkaline Phosphatase Total Protein Albumin Triglycerides Cholesterol LDL Cholesterol Direct VLDL Cholesterol HDL Cholesterol Lipase TSH Urine Color YELLOW Urine Appearance SLIGHTLY-CLOUDY Urine pH 5.0 Ur Specific [place] 1.013 Urine Protein 30 H Urine Glucose (UA) NEGATIVE Urine Ketones NEGATIVE Urine Blood NEGATIVE Urine Nitrite NEGATIVE Ur Leukocyte Esterase TRACE H Urine WBC (Auto) 3 Urine RBC (Auto) 2 09/26/19 09/26/19 09/26/19 20:30 20:30 20:30 Creatine Kinase 37 Troponin I 0.017 NT-Pro-B Natriuret Pep 501 H 09/27/19 09/27/19 09/27/19 02:24 08:21 14:10 Creatine Kinase Troponin I < 0.012 < 0.012 < 0.012 NT-Pro-B Natriuret Pep Impressions: Chest X-Ray 09/26/19 20:15 IMPRESSION: Increased pulmonary vascular engorgement. No focal consolidation. Assessment and Plan - Diagnosis (1) Atypical chest pain Is this a current diagnosis for this admission?: Yes (2) CKD (chronic kidney disease), stage III Is this a current diagnosis for this admission?: Yes - Plan Summary Summary: Patient admitted with chest pain which appears to be musculoskeletal. She currently denies chest pain unless touched on her chest wall. The last echoca rdiogram and stress test I see on chart are from 2014 and as such I will at least order an echocardiogram. A stress test can be done as outpatient if clinically necessary however patient's chest pain is likely a musculoskeletal pain with negative troponins and normal EKG
--- NOTE | 2019-09-27 20:28 | XCELERA REPORT ---
[address] [address] Transthoracic Echocardiogram Report Name: CAMMY UNDERWOOD Age: 74 yrs Gender: Female : 1945 Patient Status: Inpatient Patient Location: [address] [place], [place] [id number] Study Date: 09/27/2019 06:59 PM Height: 59 in Weight: 120 lb BSA: 1.5 m2 Procedure: A complete two-dimensional transthoracic echocardiogram was performed (2D, M-mode, spectral and color flow Doppler). The study was technically adequate with some images being suboptimal in quality. Reason For Study: Chest Pain Ordering Physician: RAJIV GALVEZ Performed By: Kate Boston Interpretation Summary The left ventricle is grossly normal size. There is mild concentric left ventricular hypertrophy. Left ventricular systolic function is normal. The Ejection Fraction estimate is >70%. Doppler measurements suggest impaired left ventricular relaxation, which is associated with grade I/IV or mild diastolic dysfunction. The left ventricular wall motion is normal. Trace to mild MR, mild to moderate TR, mild to moderate PI. Mild to moderate pulmonary hypertension with best estimated RVSP approximately 44-49 mm/Hg. Small, hemodynamically insignificant anterior pericardial effusion. When compared to a prior study dated Feb 15: -Diastolic dysfunction is now grade I. -TR is now mild to moderate. -Pulmonary pressure is slightly worse. -There is an insignificant anterior pericardial effusion. MMode/2D Measurements & Calculations RVDd: 2.1 cm LVIDd: 3.2 cm FS: 50.3 % Ao root diam: 2.3 cm IVSd: 1.6 cm LVIDs: 1.6 cm EDV(Teich): 40.9 ml Ao root area: 4.1 cm2 LVPWd: 0.88 cm ESV(Teich): 7.1 ml LA dimension: 2.3 cm EF(Teich): 82.7 % Doppler Measurements & Calculations MV E max nathaniel: MV P1/2t max nathaniel: Ao V2 max: LV V1 max P.2 cm/sec 99.5 cm/sec 161.1 cm/sec 10.8 mmHg MV A max nathaniel: MV P1/2t: 58.5 msec Ao max PG: LV V1 max: 122.3 cm/sec MVA(P1/2t): 3.8 cm2 10.4 mmHg 164.5 cm/sec MV E/A: 0.66 MV dec slope: 498.2 cm/sec2 MV dec time: 0.25 sec PA V2 max: PI end-d nathaniel: TR max nathaniel: MV P1/2t-pr_phl: 94.1 cm/sec 128.0 cm/sec 310.8 cm/sec 58.5 msec PA max P.5 mmHg TR max P.6 mmHg Left Ventricle The left ventricle is grossly normal size. There is mild concentric left ventricular hypertrophy. Left ventricular systolic function is normal. The Ejection Fraction estimate is >70%. Doppler measurements suggest impaired left ventricular relaxation, which is associated with grade I/IV or mild diastolic dysfunction. The left ventricular wall motion is normal. There is no thrombus. Right Ventricle The right ventricle is normal in size, thickness and function. The right ventricular systolic function is normal. Atria The right atrium is normal. The left atrial size is normal. The interatrial septum is difficult to see, but appears to be grossly normal. Mitral Valve There is mild mitral leaflet calcification. There is no mitral valve stenosis. There is a trace to mild amount of mitral regurgitation. Aortic Valve The aortic valve is mildly calcified. The aortic valve is not well visualized secondary to technical limitations. There is no aortic valve stenosis. No aortic regurgitation is present. Tricuspid Valve The tricuspid valve is not well visualized, but is grossly normal. There is no tricuspid stenosis. There is a moderate amount of tricuspid regurgitation. There is mild to moderate pulmonary hypertension by echo. Best estimated RVSP is approximately 44-49 mm/Hg. Pulmonic Valve The pulmonic valve is not well visualized. There is no pulmonic valvular stenosis. There is a mild to moderate amount of pulmonic regurgitation. Effusions Small, hemodynamically insignificant anterior pericardial effusion. : RAJIV GALVEZ Antonio
[2019-09-27] MEDS: ATORVASTATIN CALCIUM 80 MG TABLET PO SCH (22:20)
--- NOTE | 2019-09-28 08:36 | EKG REPORT ---
SEVERITY:- ABNORMAL ECG - SINUS RHYTHM ATRIAL PREMATURE COMPLEX LEFT VENTRICULAR HYPERTROPHY ANTERIOR Q WAVES, POSSIBLY DUE TO LVH : Confirmed by: Mariann Reyes 28-Sep-2019 08:36:16
[2019-09-28] MEDS ORDERED: METOPROLOL TARTRATE 50 MG TABLET PO SCH (10:00)
[2019-09-28] MEDS ORDERED: AMLODIPINE BESYLATE 5 MG TABLET PO SCH (10:00)
--- NOTE | 2019-09-28 12:20 | PDOC DISCHARGE SUMMARY ---
Impression - Admit/DC Date/PCP Admission Date/Primary Care Provider: 09/26/19 23:34 CASIMIRO WATKINS MD Discharge Date: 09/28/19 - Discharge Diagnosis (1) Atypical chest pain Is this a current diagnosis for this admission?: Yes (2) CKD (chronic kidney disease), stage III Is this a current diagnosis for this admission?: Yes - Assessment Summary: Patient admitted with chest pain which appears to be musculoskeletal. She currently denies chest pain unless touched on her chest wall. The last echocardiogram and stress test I see on chart are from 2014 and as such I will at least order an echocardiogram. A stress test can be done as outpatient if clinically necessary however patient's chest pain is likely a musculoskeletal pain with negative troponins and normal EKG - Additional Information Resuscitation Status: Full Code Discharge Diet: Cardiac Discharge Activity: Activity As Tolerated Referrals: CASIMIRO WATKINS MD [Primary Care Provider] - Follow up as needed Home Medications: Amlodipine Besylate [Norvasc 5 mg Tablet] 5 mg PO DAILY 01/28/17 Atorvastatin Calcium [Lipitor 80 mg Tablet] 80 mg PO QHS 01/28/17 Metoprolol Tartrate [Lopressor 50 mg Tablet] 50 mg PO DAILYP PRN 01/28/17 Montelukast Sodium [Singulair 10 mg Tablet] 10 mg PO QPM 01/28/17 Omeprazole 40 mg PO DAILY 01/28/17 Triamterene/Hydrochlorothiazid [Triamterene-Hctz 37.5-25 mg Cp] 1 cap PO DAILYP PRN 01/28/17 Albuterol Sulfate [Albuterol Sulfate Hfa] 2 puff IH Q6HP PRN 01/28/19 Calcitriol [Rocaltrol 0.25 mcg Capsule] 0.25 mcg PO DAILY 01/28/19 Fluoxetine HCl [Prozac 20 mg Capsule] 20 mg PO DAILY 01/28/19 Potassium Chloride [Klor-Con 10 Meq Tablet ER] 10 meq PO BID 01/28/19 Prednisone [Deltasone 20 mg Tablet] 20 mg PO DAILY 01/28/19 Sodium Bicarbonate [Sodium Bicarbonate 650 mg Tablet] 650 mg PO DAILY 01/28/19 History of Present Illiness History of Present Illness: CAMMY UNDERWOOD is a 74 year old female Patient admitted with chest pain. Because of her comorbidities she was admitted under observation. Please see admitting history and physical for full details. Hospital Course Hospital Course: Patient was admitted under observation. She had serial cardiac enzymes done which were negative. She had an echocardiogram done which is grossly intact LV function with ejection fraction of more than 70%. She had reproducible chest pain and this was thought to be musculoskeletal. There was no significant arrhythmia during her hospital course. She remained hemodynamically stable. At this time it is felt that the patient can be discharged home for outpatient follow-up Echocardiogram shows EF of more than 70% with mild to moderate pulmonary hypertension and small hemodynamically insignificant anterior pericardial effusion as well as mild to moderate tricuspid and mitral regurgitation Physical Exam Vital Signs: Temp Pulse Resp BP Pulse Ox 98.2 F 99 16 146/103 H 98 09/28/19 06:09 09/28/19 07:00 09/28/19 06:09 09/28/19 06:09 09/28/19 06:09 Intake & Output 09/27/19 09/28/19 09/29/19 06:59 06:59 06:59 Intake Total 476 Balance 476 Weight 54.7 kg 54.7 kg General appearance: PRESENT: no acute distress, cooperative, other - Elderly female in no distress Head exam: PRESENT: atraumatic, normocephalic Eye exam: PRESENT: EOMI, PERRLA. ABSENT: scleral icterus Mouth exam: PRESENT: moist, tongue midline Neck exam: ABSENT: carotid bruit, JVD, lymphadenopathy, thyromegaly Respiratory exam: PRESENT: clear to auscultation smiley, unlabored. ABSENT: rales, rhonchi, wheezes Cardiovascular exam: PRESENT: irregular rhythm, +S1, +S2. ABSENT: diastolic murmur, rubs, systolic murmur Pulses: PRESENT: normal dorsalis pedis pul Vascular exam: PRESENT: normal capillary refill GI/Abdominal exam: PRESENT: normal bowel sounds, soft. ABSENT: distended, guarding, mass, organolmegaly, rebound, tenderness Rectal exam: PRESENT: deferred Extremities exam: PRESENT: full ROM. ABSENT: calf tenderness, clubbing, pedal edema Neurological exam: PRESENT: alert, awake, oriented to person, oriented to place, oriented to time, oriented to situation, CN II-XII grossly intact. ABSENT: motor sensory deficit Psychiatric exam: PRESENT: appropriate affect, normal mood. ABSENT: homicidal ideation, suicidal ideation Skin exam: PRESENT: dry, intact, warm, other - Old healed skin scars. ABSENT: cyanosis, rash Results Laboratory Results: WBC 5.4 10^3/uL (4.0-10.5) 09/26/19 20:30 RBC 4.02 10^6/uL (3.72-5.28) 09/26/19 20:30 Hgb 13.4 g/dL (12.0-15.5) 09/26/19 20:30 Hct 40.3 % (36.0-47.0) 09/26/19 20:30 MCV 100 fl (80-97) H 09/26/19 20:30 MCH 33.4 pg (27.0-33.4) 09/26/19 20: MCHC 33.4 g/dL (32.0-36.0) 09/26/19 20: RDW 14.7 % (11.5-14.0) H 09/26/19 20:30 Plt Count 181 10^3/uL (150-450) 09/26/19 20:30 Lymph % (Auto) 31.3 % (13-45) 09/26/19 20:30 Harris % (Auto) 10.9 % (3-13) 09/26/19 20:30 Eos % (Auto) 3.5 % (0-6) 09/26/19 20: Baso % (Auto) 0.6 % (0-2) 09/26/19 20:30 Absolute Neuts (auto) 2.9 10^3/uL (1.7-8.2) 09/26/19 20: Absolute Lymphs (auto) 1.7 10^3/uL (0.5-4.7) 09/26/19 20:30 Absolute Monos (auto) 0.6 10^3/uL (0.1-1.4) 09/26/19 20:30 Absolute Eos (auto) 0.2 10^3/uL (0.0-0.6) 09/26/19 20:30 Absolute Basos (auto) 0.0 10^3/uL (0.0-0.2) 09/26/19 20:30 Seg Neutrophils % 53.7 % (42-78) 09/26/19 20:30 VBG pH 7.37 (7.30-7.42) 09/26/19 21:55 VBG pCO2 37.4 mmHg (35-63) 09/26/19 21:55 VBG HCO3 21.1 mmol/L (20-32) 09/26/19 21:55 VBG Base Excess -3.7 mmol/L 09/26/19 21:55 Sodium 138.1 mmol/L (137-145) 09/26/19 20:30 Potassium 3.7 mmol/L (3.6-5.0) 09/26/19 20:30 Chloride 110 mmol/L (98-107) H 09/26/19 20:30 Carbon Dioxide 23 mmol/L (22-30) 09/26/19 20:30 Anion Gap 5 (5-19) 09/26/19 20:30 BUN 22 mg/dL (7-20) H 09/26/19 20:30 Creatinine 1.67 mg/dL (0.52-1.25) H 09/26/19 20:30 Est GFR ( Amer) 36 (>60) L 09/26/19 20:30 Est GFR (MDRD) Non-Af 30 (>60) L 09/26/19 20:30 Glucose 104 mg/dL (75-110) 09/26/19 20:30 Calcium 8.8 mg/dL (8.4-10.2) 09/26/19 20:30 Total Bilirubin 0.8 mg/dL (0.2-1.3) 09/26/19 20:30 Direct Bilirubin 0.2 mg/dL (0.0-0.4) 09/26/19 20:30 Neonat Total Bilirubin Not Reportable 09/26/19 20:30 Neonat Direct Bilirubin Not Reportable 09/26/19 20:30 Neonat Indirect Bili Not Reportable 09/26/19 20:30 AST 39 U/L (14-36) H 09/26/19 20:30 ALT 28 U/L (<35) 09/26/19 20:30 Alkaline Phosphatase 294 U/L (38-126) H 09/26/19 20:30 Creatine Kinase 37 U/L (30-135) 09/26/19 20:30 Troponin I < 0.012 ng/mL 09/27/19 14:10 NT-Pro-B Natriuret Pep 501 pg/mL (<450) H 09/26/19 20:30 Total Protein 5.9 g/dL (6.3-8.2) L 09/26/19 20:30 Albumin 3.1 g/dL (3.5-5.0) L 09/26/19 20:30 Triglycerides 114 mg/dL (<150) 09/26/19 20:30 Cholesterol 184.15 mg/dL (0-200) 09/26/19 20:30 LDL Cholesterol Direct 94 mg/dL (<100) 09/26/19 20:30 VLDL Cholesterol 23.0 mg/dL (10-31) 09/26/19 20:30 HDL Cholesterol 46 mg/dL (>40) 09/26/19 20:30 Lipase 127.4 U/L (23-300) 09/26/19 20:30 TSH 2.10 uIU/mL (0.47-4.68) 09/26/19 20:30 Urine Color YELLOW 09/27/19 02:15 Urine Appearance SLIGHTLY-CLOUDY 09/27/19 02:15 Urine pH 5.0 (5.0-9.0) 09/27/19 02:15 Ur Specific [facility] 1.013 09/27/19 02:15 Urine Protein 30 mg/dL (NEGATIVE) H 09/27/19 02:15 Urine Glucose (UA) NEGATIVE mg/dL (NEGATIVE) 09/27/19 02:15 Urine Ketones NEGATIVE mg/dL (NEGATIVE) 09/27/19 02:15 Urine Blood NEGATIVE (NEGATIVE) 09/27/19 02:15 Urine Nitrite NEGATIVE (NEGATIVE) 09/27/19 02:15 Urine Bilirubin NEGATIVE (NEGATIVE) 09/27/19 02:15 Urine Urobilinogen NEGATIVE mg/dL (<2.0) 09/27/19 02:15 Ur Leukocyte Esterase TRACE (NEGATIVE) H 09/27/19 02:15 Urine WBC (Auto) 3 /HPF 09/27/19 02:15 Urine RBC (Auto) 2 /HPF 09/27/19 02:15 U Hyaline Cast (Auto) 1 /LPF 09/27/19 02:15 Urine Bacteria (Auto) TRACE /HPF 09/27/19 02:15 Squamous Epi Cells Auto 4 /HPF 09/27/19 02:15 Urine Mucus (Auto) RARE /LPF 09/27/19 02:15 Urine Ascorbic Acid NEGATIVE (NEGATIVE) 09/27/19 02:15 09/26/19 09/26/19 09/27/19 20:30 20:30 02:24 Troponin I 0.017 < 0.012 NT-Pro-B Natriuret Pep 501 H 09/27/19 09/27/19 08:21 14:10 Troponin I < 0.012 < 0.012 NT-Pro-B Natriuret Pep EKG Comments: PAC Impressions: Chest X-Ray 09/26/19 20:15 IMPRESSION: Increased pulmonary vascular engorgement. No focal consolidation. Stroke Is this a Stroke Patient?: No Acute Heart Failure - Is this a Heart Failure Patient?: No
[2019-09-28 12:25] VITALS: BP 151/78
== END 2019-09-28 12:43 | disposition home or self-care (01) ==
LOC: ER 19:26 → EH 23:34 → 4S 09-27 00:37
PROVIDERS: ADMIT Internal Medicine; ATTEND Internal Medicine
DX: R07.89 Other chest pain (principal); I12.9 Hypertensive chronic kidney disease with stage 1 through stage 4 chronic kidney disease, or unspecified chronic kidney disease; N18.3 Chronic kidney disease, stage 3 (moderate); I27.20 Pulmonary hypertension, unspecified; I08.1 Rheumatic disorders of both mitral and tricuspid valves; J44.9 Chronic obstructive pulmonary disease, unspecified; I25.10 Atherosclerotic heart disease of native coronary artery without angina pectoris; F32.9 Major depressive disorder, single episode, unspecified; K21.9 Gastro-esophageal reflux disease without esophagitis; I25.2 Old myocardial infarction; Z79.899 Other long term (current) drug therapy; Z87.891 Personal history of nicotine dependence; Z82.49 Family history of ischemic heart disease and other diseases of the circulatory system; Z86.73 Personal history of transient ischemic attack (TIA), and cerebral infarction without residual deficits; E78.5 Hyperlipidemia, unspecified
CPT/HCPCS: 93005; 99285; 36415 ×2; 82550; 83690; 84443; 85025; 80053; 81001; 84484 ×2; 82803; 80061; 83880; 93306; 71045; 93010; G0378 ×3; A9270 ×6; J0360